=== PATIENT | male | born 1950 | race Native Hawaiian/Other Pacific Islander ===

== ENCOUNTER 2022-12-03 08:50 | Inpatient (IN) ==
[2022-12-03] MEDS ORDERED: CEFEPIME 2,000 MG/20 ML VIAL IV STA (09:15)
[2022-12-03] MEDS ORDERED: SODIUM CHLORIDE 0.9% 1000ML 1,000 ML IV SCH ×2 (09:15→15:17)
--- NOTE | 2022-12-03 09:43 | Emergency Department Note ---
Impression & Plan SOB (shortness of breath), Pneumonia, Abnormal chest CT, Precordial chest pain, Failure of outpatient treatment ED Provider Note NAME: BALA [id number] LEISA AGE: 72 SEX: M : 1950 ARRIVES VIA: Walk-In INFORMANT: [Patient] ED PROVIDER(S): [Hugo Guthrie MD] CHIEF COMPLAINT: Illness HISTORY OF PRESENT ILLNESS: The patient is a 72-year-old male who presents to the ED with some cough and lung issues for about 3 weeks. He is currently an [facility]. The patient states that his lungs hurt, he has been coughing. He feels short of breath. The patient had an x-ray performed outpatient on the of last month. This showed pneumonia. It appears he has been on Augmentin and Zithromax. A repeat chest film was done yesterday showing worsening of the pneumonia, he was sent today for evaluation. PMHx/PSHx: See Below SOCIAL HISTORY: See Below. PHYSICAL EXAM: GENERAL: Patient is in no acute distress. HEENT: No acute trauma, normocephalic atraumatic, mucous membranes moist, no nasal congestion. NECK: No stridor, no adenopathy, no meningismus, trachea is midline. LUNGS: Increased respiratory rate, breath sounds diminished bilaterally with some scattered crackles. No obvious respiratory distress. HEART: Without murmurs gallops or rubs, regular rate and rhythm. Distant heart tones. ABDOMEN: Soft, nontender, bowel sounds positive, no peritonitis. EXTREMITIES: No cyanosis or edema, full range of motion of all the joints without pain or difficulty, no signs for acute trauma. NEUROLOGIC: Oriented x 3, no acute motor or sensory deficits, no focal weakness. SKIN: No rash, no jaundice, no diaphoresis. DIFFERENTIAL DIAGNOSIS: Bacteremia or sepsis, pneumonia, CHF, failed outpatient management, anemia, electrolyte imbalance, dehydration, PE, among others. EMERGENCY DEPARTMENT COURSE/PROCEDURES: Prior/Outside records reviewed: Halfway documentation. ECG per my interpretation: Indication was shortness of breath. The ECG shows a sinus rhythm with PACs. The rate is 85. There is no ST elevation, no PVCs. The QTc is 454. Continuous Cardiac Monitoring per my interpretation: An order was placed for continuous cardiac monitoring. The monitor shows a rate of 88 with sinus rhythm with PACs. Critical Care Note: I have personally spent 51 minutes of critical care time in the direct management of this patient. This includes bedside care, interpretation of diagnostic studies, and testing, discussion with consultants, patient, and family members, and other required patient management activities. This 51 minutes is in excess of all separately billable procedures. MEDICAL DECISION MAKING: There is no leukocytosis. The patient is somewhat anemic with a hemoglobin of 11.1. There are no available values to use for comparison. Platelet count was normal. No renal failure or significant electrolyte abnormality. Lactic acid level was somewhat elevated. This elevation could be consistent with infection or possibly dehydration. No concerning liver enzyme elevation. Procalcitonin level was not not elevated. ECG shows a sinus rhythm with PACs, no ischemia. Cardiac enzyme testing x1 is not consistent with acute cardiac injury. Respiratory bio fire was completely negative. Chest film per my review suggested a right-sided pneumonia. No pneumothorax per my review. Chest CT shows potential pneumonia as well as potential malignancy. Some suspected hepatic metastases were seen. There was no PE. On exam, the patient's breath sounds were diminished. He was not toxic or febrile. The patient was given a DuoNeb. He was given 1.5 L of IV saline. He received IV cefepime as empiric antibiotic coverage. Patient certainly may have a pneumonia that has not resolved with outpatient treatment. He also appears to have a potential lung malignancy. Given his findings, given his recent course, I do think a hospital stay is warranted. Further work-up and care is indicated. I spoke with the patient, I spoke with case management, the on-call hospitalist was consulted. DISPOSITION: The patient's presentation and findings warrant a hospital stay. Past Med/Surg History Medical History Asthma Depression with anxiety History of alcohol abuse History of drug use History of tobacco abuse HLD (hyperlipidemia) HTN (hypertension) Surgical History (Updated 12/03/22 @ 13:51 by Yvonne Ogden PA-C) Hx of cardiac cath pt states no stents were placed Family History (Updated 12/03/22 @ 13:52 by Yvonne Ogden PA-C) Other Unknown family medical history Social History Smoking Status: Former smoker Cigarettes Per Day: 20 pack yr hx; Hx Alcohol Use: Yes (2 -40z a day) Alcohol type: beer Hx Substance Use: Yes Non-Prescribed Medications: Crack / Cocaine and Marijuana Feels Safe at Home: Yes Allergies Allergies Allergy/AdvReac Type Severity Reaction Status Date / Time No Known Allergies Allergy Unverified 12/03/22 11:58 Home Meds Home Medications Medication Instructions Recorded Confirmed albuterol sulfate 90 mcg/actuation 2 puff inhalation QID PRN 12/03/22 12/03/22 aerosol inhaler Shortness Of Breath aspirin 81 mg chewable tablet 81 mg PO DAILY 12/03/22 12/03/22 (Children's Aspirin) atorvastatin 40 mg tablet 40 mg PO DAILY 12/03/22 12/03/22 ciclesonide 80 mcg/actuation 1 puff inhalation BID 12/03/22 12/03/22 aerosol inhaler (Alvesco) lisinopril 20 mg tablet 20 mg PO DAILY 12/03/22 12/03/22 mirtazapine 45 mg tablet 45 mg PO HS 12/03/22 12/03/22 montelukast 10 mg tablet 10 mg PO DAILY 12/03/22 12/03/22 omeprazole 20 mg tablet,delayed 20 mg PO DAILY 12/03/22 12/03/22 release quetiapine 100 mg tablet 100 mg PO HS 12/03/22 12/03/22 Results & Data (ED) Vital Signs Vital Signs - 24 hr 12/03/22 09:01 12/03/22 09:04 12/03/22 09:15 Pulse Rate Pulse Rate [Apical] 81 Pulse Rhythm [Apical] Pulse Strength [Apical] Respiratory Rate 18 Respiratory Effort / Characteristics Respiratory Depth Respiratory Pattern Blood Pressure 105/69 Blood Pressure [Right Arm] 103/69 Blood Pressure Mean 81 Blood Pressure Mean [Right Arm] 80 Blood Pressure Position Sitting Blood Pressure Position [Right Arm] Sitting Pulse Oximetry 94 94 Oxygen Delivery Method Room Air Room Air Sepsis Recent Fever Within 48 Hours Yes Sepsis New/Unexplained Change in Mental Status N/A Sepsis Action Taken by Nursing No Action Required 12/03/22 11:04 12/03/22 13:12 12/03/22 13:52 Pulse Rate 117 H Pulse Rate [Apical] 84 Pulse Rhythm [Apical] Regular Pulse Strength [Apical] Normal Respiratory Rate 18 Respiratory Effort / Characteristics Non-Labored Spontaneous Respiratory Depth Normal Respiratory Pattern Regular Blood Pressure Blood Pressure [Right Arm] 94/72 L 85/65 L Blood Pressure Mean Blood Pressure Mean [Right Arm] 79 71 Blood Pressure Position Blood Pressure Position [Right Arm] Lying Pulse Oximetry 93 Oxygen Delivery Method Room Air Sepsis Recent Fever Within 48 Hours Sepsis New/Unexplained Change in Mental Status Sepsis Action Taken by Nursing 12/03/22 14:04 12/03/22 14:07 Pulse Rate 93 H Pulse Rate [Apical] Pulse Rhythm [Apical] Pulse Strength [Apical] Respiratory Rate Respiratory Effort / Characteristics Respiratory Depth Respiratory Pattern Blood Pressure Blood Pressure [Right Arm] 90/67 L Blood Pressure Mean Blood Pressure Mean [Right Arm] 74 Blood Pressure Position Blood Pressure Position [Right Arm] Lying Pulse Oximetry Oxygen Delivery Method Sepsis Recent Fever Within 48 Hours Sepsis New/Unexplained Change in Mental Status Sepsis Action Taken by Long-Term Medications Current Medication List: was personally reviewed by me Laboratory Data Attestation: I reviewed the patient's lab results. 12/03/22 09:36 12/03/22 09:36 Lab Results 12/03/22 12/03/22 12/03/22 Range/Units 09:36 09:36 09:36 WBC 7.42 (4.8-10.8) K/ul RBC 4.07 L (4.70-6.10) M/uL Hgb 11.1 L (14.0-18.0) g/dl Hct 33.8 L (42.0-52.0) % MCV 83.0 (80.0-100.0) fL MCH 27.3 (25.0-34.0) pg MCHC 32.8 (32.0-36.0) g/dL RDW Std Deviation 41.1 (36.4-46.3) fL RDW Coeff of Abby 13.6 (11.5-14.5) % Plt Count 393 (130-400) K/uL MPV 9.0 L (9.4-12.4) fL Immature Gran % (Auto) 0.3 % Neut % (Auto) 47.8 % Lymph % (Auto) 27.6 % [place] % (Auto) 10.5 % Eos % (Auto) 12.3 % Baso % (Auto) 1.5 % Neut # (Auto) 3.55 (1.40-6.50) K/uL Lymph # (Auto) 2.05 (1.2-3.4) K/uL [place] # (Auto) 0.78 H (0.11-0.59) K/uL Eos # (Auto) 0.91 H (0-0.50) K/uL Baso # (Auto) 0.11 (0-0.2) K/uL Immature Gran # (Auto) 0.02 (0.01-0.20) K/uL Sodium 135 L (136-145) mmol/L Potassium 3.7 (3.5-5.1) mmol/L Chloride 107 (98-107) mmol/L Carbon Dioxide 20 L (21-32) mmol/L Anion Gap 8 (3-11) BUN 17 (6-23) mg/dl Creatinine 1.04 (0.6-1.4) mg/dl Est Cr Clr Drug Dosing 66.1 ml/min Est GFR ( Amer) 82.7 ml/min Est GFR (Non-Af Amer) 71.4 ml/min BUN/Creatinine Ratio 16.3 (10-20) Glucose 95 (70-99(Fasting)) mg/dl Lactate (0.4-2.0) mmol/L Calcium 9.1 (8.6-10.3) mg/dl Magnesium 1.8 (1.7-2.4) mg/dl Total Bilirubin 0.5 (0.2-1.0) mg/dl Direct Bilirubin 0.1 (0-0.2) mg/dl AST 28 (13-39) U/L ALT 12 (7-52) U/L Alkaline Phosphatase 69 (34-104) U/L Troponin I High Sens 7.3 (0-20) pg/ml Total Protein 7.3 (6.0-8.3) gm/dl Albumin 3.6 (3.4-5.0) gm/dl Procalcitonin 0.17 (0-0.5) ng/ml Adenovirus (PCR) (NotDetected) B. pertussis DNA (PCR) (NotDetected) B.parapertussis DNA PCR (NotDetected) C. pneumoniae DNA (PCR) (NotDetected) Coronavirus OC43 (PCR) (NotDetected) Coronavirus HKU1 (PCR) (NotDetected) Coronavirus 229E (PCR) (NotDetected) SARS-CoV-2 (PCR) (NotDetected) Coronavirus NL63 (PCR) (NotDetected) Human Metapneumovir PCR (NotDetected) Influenza Type A (PCR) (NotDetected) Influenza Type B (PCR) (NotDetected) M. pneumoniae (PCR) (NotDetected) Parainfluenza 1 (PCR) (NotDetected) Parainfluenza 2 (PCR) (NotDetected) Parainfluenza 3 (PCR) (NotDetected) Parainfluenza 4 (PCR) (NotDetected) RSV (PCR) (NotDetected) Entero/Rhino (PCR) (NotDetected) 12/03/22 12/03/22 12/03/22 Range/Units 09:48 11:15 12:10 WBC (4.8-10.8) K/ul RBC (4.70-6.10) M/uL Hgb (14.0-18.0) g/dl Hct (42.0-52.0) % MCV (80.0-100.0) fL MCH (25.0-34.0) pg MCHC (32.0-36.0) g/dL RDW Std Deviation (36.4-46.3) fL RDW Coeff of Abby (11.5-14.5) % Plt Count (130-400) K/uL MPV (9.4-12.4) fL Immature Gran % (Auto) % Neut % (Auto) % Lymph % (Auto) % [place] % (Auto) % Eos % (Auto) % Baso % (Auto) % Neut # (Auto) (1.40-6.50) K/uL Lymph # (Auto) (1.2-3.4) K/uL [place] # (Auto) (0.11-0.59) K/uL Eos # (Auto) (0-0.50) K/uL Baso # (Auto) (0-0.2) K/uL Immature Gran # (Auto) (0.01-0.20) K/uL Sodium (136-145) mmol/L Potassium (3.5-5.1) mmol/L Chloride (98-107) mmol/L Carbon Dioxide (21-32) mmol/L Anion Gap (3-11) BUN (6-23) mg/dl Creatinine (0.6-1.4) mg/dl Est Cr Clr Drug Dosing ml/min Est GFR ( Amer) ml/min Est GFR (Non-Af Amer) ml/min BUN/Creatinine Ratio (10-20) Glucose (70-99(Fasting)) mg/dl Lactate 2.5 H* 2.0 (0.4-2.0) mmol/L Calcium (8.6-10.3) mg/dl Magnesium (1.7-2.4) mg/dl Total Bilirubin (0.2-1.0) mg/dl Direct Bilirubin (0-0.2) mg/dl AST (13-39) U/L ALT (7-52) U/L Alkaline Phosphatase (34-104) U/L Troponin I High Sens (0-20) pg/ml Total Protein (6.0-8.3) gm/dl Albumin (3.4-5.0) gm/dl Procalcitonin (0-0.5) ng/ml Adenovirus (PCR) Not Detected (NotDetected) B. pertussis DNA (PCR) Not Detected (NotDetected) B.parapertussis DNA PCR Not Detected (NotDetected) C. pneumoniae DNA (PCR) Not Detected (NotDetected) Coronavirus OC43 (PCR) Not Detected (NotDetected) Coronavirus HKU1 (PCR) Not Detected (NotDetected) Coronavirus 229E (PCR) Not Detected (NotDetected) SARS-CoV-2 (PCR) Not Detected (NotDetected) Coronavirus NL63 (PCR) Not Detected (NotDetected) Human Metapneumovir PCR Not Detected (NotDetected) Influenza Type A (PCR) Not Detected (NotDetected) Influenza Type B (PCR) Not Detected (NotDetected) M. pneumoniae (PCR) Not Detected (NotDetected) Parainfluenza 1 (PCR) Not Detected (NotDetected) Parainfluenza 2 (PCR) Not Detected (NotDetected) Parainfluenza 3 (PCR) Not Detected (NotDetected) Parainfluenza 4 (PCR) Not Detected (NotDetected) RSV (PCR) Not Detected (NotDetected) Entero/Rhino (PCR) Not Detected (NotDetected) Administered Medications Discontinued Medications Albuterol (Albut/Ipratrop 3mg/0.5mg Neb 3 Ml Vial) 3 ml NEB NOW STA; Protocol Stop: 12/03/22 10:46 Last Admin: 12/03/22 11:13 Dose: 3 ml Documented By: PALMA Cefepime HCl (Maxipime) 2,000 mg in 20 mls @ 5 mls/min IV NOW STA; Protocol Stop: 12/03/22 09:18 Last Admin: 12/03/22 10:09 Dose: 5 mls/min Documented By: ANGEL Sodium Chloride (Nss 1000ml) 1,000 mls @ 999 mls/hr IV .Q1H1M KAITLIN Stop: 12/03/22 10:15 Last Infusion: 12/03/22 10:54 Dose: 0 mls/hr Documented By: Admin: 12/03/22 09:39 Dose: 999 mls/hr Documented By: ANGEL Sodium Chloride (Nss 1000ml) 500 mls @ 999 mls/hr IV .Q31M ONE Stop: 12/03/22 13:27 Last Infusion: 12/03/22 13:52 Dose: 0 mls/hr Documented By: Admin: 12/03/22 13:05 Dose: 999 mls/hr Documented By: PALMA Ioversol (Optiray 320 500ml) 111 ml IV ONCE ONE Stop: 12/03/22 10:43 Last Admin: 12/03/22 10:42 Dose: 111 ml Documented By: CARTER Imaging Data Radiologist's Impression: Chest X-Ray 12/03/22 09:15 XR chest 1V portable CLINICAL HISTORY: Sepsis. COMPARISON STUDY: No previous studies for comparison. FINDINGS: There is no pneumothorax or pleural effusion. Right lower lung airspace opacity is present. There is mild diffuse interstitial thickening. Cardiac size is normal. Mediastinal contours are unremarkable. IMPRESSION: 1. Right lower lung airspace opacity. Given the clinical history, this likely reflects pneumonia. However, post treatment radiographs to ensure resolution are recommended to exclude the possibility of an underlying neoplasm. 2. Nonspecific diffuse reticulonodular interstitial thickening. ACT 112: Negative or not required by law. Electronically signed by: Romeo Mortensen M.D. 12/03/2022 10:48 AM Chest CTA 12/03/22 09:43 CT ANGIOGRAPHY OF THE CHEST, PULMONARY EMBOLUS PROTOCOL CLINICAL HISTORY: Fever. COMPARISON STUDY: Chest radiograph performed earlier today. TECHNIQUE: Following IV administration of 111 mL of Optiray, helical axial images of the chest were obtained utilizing the pulmonary embolus protocol. Maximal intensity projections and sagittal and coronal reformats were viewed on an independent 3D workstation. IV contrast was administered without complication. Automated exposure control was utilized for the study. A dose lowering technique was utilized adhering to the principles of ALARA. CT DOSE: 386.04 mGy.cm FINDINGS: No pulmonary emboli are identified. There is no thoracic aortic dissection. There is a small pericardial effusion. No pneumothorax is present. There is a trace right pleural effusion. Note is made of numerous pathologically enlarged thoracic and upper abdominal lymph nodes. There are several prominent right supraclavicular lymph nodes. Index right paratracheal lymph node on image 212 of 283 measures 3.6 x 3.1 cm. Index prevascular node on image 187 measures 4 x 2 cm. Subcarinal lymph node on image 145 measures 4.1 x 3.5 cm. Gastrohepatic ligament lymph node measures 3.7 x 3.2 cm. Emphysema is noted. Several nodular airspace opacities within the right lower lobe measure up to 3.9 x 2.4 cm. There is a nodule within the medial basal segment of the right lower lobe on image 79 measures 2.2 x 1.6 cm. There are innumerable smaller nodules throughout the lungs. Nodular interlobular septal thickening is noted at this is most pron ounced within the right lower lobe. There is thickening of the bronchovascular bundles. Bronchial wall thickening is noted. No suspicious lesions within the bony thorax are noted. There are numerous hypodense hepatic lesions. These measure up to approximately 2.9 cm. IMPRESSION: 1. No pulmonary emboli identified. 2. Several nodular airspace opacities within the right lower lobe with innumerable smaller nodules throughout the lungs as well as extensive thoracic and upper abdominal lymphadenopathy. The findings represent a neoplastic process and favor primary lung malignancy such as small cell carcinoma. The right lower lobe airspace opacities are likely neoplastic although a superimposed pneumonia could appear similar. 3. Interlobular septal thickening within the lungs, most pronounced within the right lower lobe. This suggests lymphangitic carcinomatosis. 4. Numerous hepatic metastases. 5. Small pericardial effusion. Trace right pleural effusion. ACT 112: Positive. There are findings on this exam that require communication between the performing entity and the patient following Patient Test Result Information Act ([place] Act 112) guidelines. Electronically signed by: Romeo Mortensen M.D. 12/03/2022 11:17 AM Discharge Plan Visit Data Chief Complaint: Illness Stated Complaint: ILLNESS, COUGH, CHEST PAINS ED Provider: Hugo Guthrie Discharge Problem: SOB (shortness of breath), Pneumonia, Abnormal chest CT, Precordial chest pain, Failure of outpatient treatment Patient Disposition: Admitted As Inpatient Condition: Fair Forms Stand Alone Forms: My [facility] Prescriptions Prescriptions: No Action atorvastatin 40 mg Tablet 40 mg PO DAILY lisinopril 20 mg Tablet 20 mg PO DAILY quetiapine 100 mg Tablet 100 mg PO HS mirtazapine 45 mg Tablet 45 mg PO HS aspirin [Children's Aspirin] 81 mg Tablet,Chewable 81 mg PO DAILY montelukast 10 mg Tablet 10 mg PO DAILY albuterol sulfate 90 mcg/actuation Hfa Aerosol Inhaler 2 puff INHALATION QID PRN (Reason: Shortness Of Breath) omeprazole 20 mg Tablet,Delayed Release (Dr/Ec) 20 mg PO DAILY Alvesco 80 mcg/actuation Hfa Aerosol Inhaler 1 puff INHALATION BID Rx Instructions: Rinse mouth after use Referrals Referrals: PCP,NO [Physician] -
[2022-12-03 10:02] LABS: Basophils # (auto) 0.11 K/uL (0-0.2); Basophils % (auto) 1.5 %; Eosinophils # (auto) 0.91 K/uL (0-0.50); Eosinophils % (auto) 12.3 %; Hematocrit (blood only) 33.8 % (42.0-52.0); Hemoglobin 11.1 g/dl (14.0-18.0); Immature Granulocytes # (auto) 0.02 K/uL (0.01-0.20); Immature Granulocytes % (auto) 0.3 %; Lymphocytes # (auto) 2.05 K/uL (1.2-3.4); Lymphocytes % (auto) 27.6 %; Mean Corpuscular Hemoglobin 27.3 pg (25.0-34.0); Mean Corpuscular Hgb Conc 32.8 g/dL (32.0-36.0); Monocytes # (auto) 0.78 K/uL (0.11-0.59); Monocytes % (auto) 10.5 %; Neutrophils # (auto) 3.55 K/uL (1.40-6.50); Neutrophils % (auto) 47.8 %; Platelet Count 393 K/uL (130-400); RDW Coefficient of Variation 13.6 % (11.5-14.5); RDW Standard Deviation 41.1 fL (36.4-46.3); Red Blood Count 4.07 M/uL (4.70-6.10); White Blood Count 7.42 K/ul (4.8-10.8)
[2022-12-03 10:19] LABS: Albumin Level 3.6 gm/dl (3.4-5.0); BUN Creatinine Ratio 16.3 (10-20); Bilirubin Direct 0.1 mg/dl (0-0.2); Bilirubin,Total 0.5 mg/dl (0.2-1.0); Calcium 9.1 mg/dl (8.6-10.3); Creatinine Clr Calc Pharmacy 66.1 ml/min; Est GFR (African American) 82.7 ml/min; Est GFR (Non-African American) 71.4 ml/min; Magnesium 1.8 mg/dl (1.7-2.4); Potassium 3.7 mmol/L (3.5-5.1); Total Protein 7.3 gm/dl (6.0-8.3)
[2022-12-03 10:26] LABS: Troponin I High Sensitivity 7.3 pg/ml (0-20)
[2022-12-03] MEDS ORDERED: OPTIRAY 320 500ml IV ONE (10:42)
[2022-12-03] MEDS ORDERED: ALBUT/IPRATROP 3MG/0.5MG NEB 3 ML VIAL NEB STA (10:45)
--- NOTE | 2022-12-03 10:49 | XRay Report ---
XR chest 1V portable CLINICAL HISTORY: Sepsis. COMPARISON STUDY: No previous studies for comparison. FINDINGS: There is no pneumothorax or pleural effusion. Right lower lung airspace opacity is present. There is mild diffuse interstitial thickening. Cardiac size is normal. Mediastinal contours are unre markable. IMPRESSION: 1. Right lower lung airspace opacity. Given the clinical history, this likely reflects pneumonia. Ho wever, post treatment radiographs to ensure resolution are recommended to exclude the possibility of an underlying neoplasm. 2. Nonspecific diffuse reticulonodular interstitial thickening. ACT 112: Negative or not required by law. Electronically signed by: Romeo Mortensen M.D. 12/03/2022 10:48 AM
--- NOTE | 2022-12-03 11:19 | CT Scan Report ---
CT ANGIOGRAPHY OF THE CHEST, PULMONARY EMBOLUS PROTOCOL CLINICAL HISTORY: Fever. COMPARISON STUDY: Chest radiograph performed earlier today. TECHNIQUE: Following IV administration of 111 mL of Optiray, helical axial images of the chest were o btained utilizing the pulmonary embolus protocol. Maximal intensity projections and sagittal and cor onal reformats were viewed on an independent 3D workstation. IV contrast was administered without co mplication. Automated exposure control was utilized for the study. A dose lowering technique was ut ilized adhering to the principles of ALARA. CT DOSE: 386.04 mGy.cm FINDINGS: No pulmonary emboli are identified. There is no thoracic aortic dissection. There is a sma ll pericardial effusion. No pneumothorax is present. There is a trace right pleural effusion. Note is made of numerous pathologically enlarged thoracic and upper abdominal lymph nodes. There are several prominent right supraclavicular lymph nodes. Index right paratracheal lymph node on image 212 of 283 measures 3.6 x 3.1 cm. Index prevascular node on image 187 measures 4 x 2 cm. Subcarinal lymph node on image 145 measures 4.1 x 3.5 cm. Gastrohepatic ligament lymph node measures 3.7 x 3.2 cm. Emphysem a is noted. Several nodular airspace opacities within the right lower lobe measure up to 3.9 x 2.4 cm . There is a nodule within the medial basal segment of the right lower lobe on image 79 measures 2.2 x 1.6 cm. There are innumerable smaller nodules throughout the lungs. Nodular interlobular septal thi ckening is noted at this is most pronounced within the right lower lobe. There is thickening of the b ronchovascular bundles. Bronchial wall thickening is noted. No suspicious lesions within the bony tho rax are noted. There are numerous hypodense hepatic lesions. These measure up to approximately 2.9 cm . IMPRESSION: 1. No pulmonary emboli identified. 2. Several nodular airspace opacities within the right lower lobe with innumerable smaller nodules th roughout the lungs as well as extensive thoracic and upper abdominal lymphadenopathy. The findings re present a neoplastic process and favor primary lung malignancy such as small cell carcinoma. The righ t lower lobe airspace opacities are likely neoplastic although a superimposed pneumonia could appear similar. 3. Interlobular septal thickening within the lungs, most pronounced within the right lower lobe. This suggests lymphangitic carcinomatosis. 4. Numerous hepatic metastases. 5. Small pericardial effusion. Trace right pleural effusion. ACT 112: Positive. There are findings on this exam that require communication between the performing entity and the patient following Patient Test Result Information Act ([place] Act 112) guidelines. Electronically signed by: Romeo Mortensen M.D. 12/03/2022 11:17 AM
[2022-12-03 12:24] LABS: Adenovirus PCR Not Detected (NotDetected); Bordetella parapertussis PCR Not Detected (NotDetected); Bordetella pertussis PCR Not Detected (NotDetected); Chlamydia pneumoniae PCR Not Detected (NotDetected); Coronavirus 229E PCR Not Detected (NotDetected); Coronavirus CoV-2 (COVID19)PCR Not Detected (NotDetected); Coronavirus HKU1 PCR Not Detected (NotDetected); Coronavirus NL63 PCR Not Detected (NotDetected); Coronavirus OC43PCR Not Detected (NotDetected); Human Metapneumovirus PCR Not Detected (NotDetected); Influenza A PCR Not Detected (NotDetected); Influenza B PCR Not Detected (NotDetected); Mycoplasma pneumoniae PCR Not Detected (NotDetected); Parainfluenza Virus 1 PCR Not Detected (NotDetected); Parainfluenza Virus 2 PCR Not Detected (NotDetected); Parainfluenza Virus 3 PCR Not Detected (NotDetected); Parainfluenza Virus 4 PCR Not Detected (NotDetected); Respiratory Syncytial VirusPCR Not Detected (NotDetected); Rhinovirus/Enterovirus PCR Not Detected (NotDetected)
--- NOTE | 2022-12-03 12:47 | History & Physical Report ---
Date of Service December 03, 2022 Assessment & Plan (1) Abnormal chest CT: (2) Pneumonia: (3) Hypotension: Plan This is a 72-year-old male who has a significant past medical history of HTN, HLD, depression with anxiety, asthma, history of 75-puoe-embo tobacco abuse, history of alcohol abuse and history of drug use who presents from [facility] secondary to cough x3 weeks. CT Chest: IMPRESSION:1. No pulmonary emboli identified.2. Several nodular airspace opacities within the right lower lobe with innumerable smaller nodules throughout the lungs as well as extensive thoracic and upper abdominal lymphadenopathy. The findings represent a neoplastic process and favor primary lung malignancy such as small cell carcinoma. The right lower lobe airspace opacities are likely neoplastic although a superimposed pneumonia could appear similar.3. Interlobular septal thickening within the lungs, most pronounced within the right lower lobe. This suggests lymphangitic carcinomatosis.. Numerous hepatic metastases.. Small pericardial effusion. Trace right pleural effusion. Abnormal Chest CT Pneumonia Possible Lung cancer with mets Failure of outpatient treatment Admit to PCU consult pulmonology, NPO after midnight for EBUS tomorrow Empirically tx with IV zosyn for now, MRSA swab, if positive will add vanco, recently completed 5 day course of azithro/aug as outpatient Duoneb, incentive spirometry obtain Liver US to determine if lesions amenable to biopsy via IR likely will need to consult onc at some point Hypotension ? Sepsis vs hypovolemia - hypotension, lactic acidosis, tachycardia if sepsis source likely PNA blood cultures pending, urine negative Received total of 2L of IVF in ED will continue maintenance for now @ 80cc/hr - vitals improving Precordial Chest pain initial trop negative, ecg w/o st changes will cycle for completeness, obtain echo likely MSk from cough, reproducible Wandering Atrial Pacemaker pt with evidence of what appeared to be afib on tele @ 1310, RVR with hypotension now back in sinus rhythm possibly due to underlying pulmonary issue vs sepsis Discussed with cards to review tele who felt wandering atrial pacemaker, not afib will replete mag and K to keep > 2 and 4.0 respectively HTN hold lisinopril due to hypotension HLD continue statin Asthma, no acute exac duonebs hold home inhaler Hx of tobacco abuse Hx of alcohol abuse Hx of Drug use with cocaine and marijuana Pt confirms he is a DNR/DNI but does state at this point he would wish to pursue treatment of cancer depending on prognosis. Discussed with CM who agreed Prisoners have right to Medical decision making Dispo: admit to PCU PCP: Fidelina LIU A total of 95 was spent coordinating, documenting, and providing care for this patient excluding time spent in the performance of separately billed services. This included personally viewing all current laboratories and imaging studies, medication reconciliation, outpatient chart review, and discussion with specialists. Pt seen and collaborated with Dr. Rutherford History of Present Illness Chief Complaint: Cough x 3 weeks. Primary Care Provider: ALEXA Fidelina This is a 72-year-old male who has a significant past medical history of HTN, HLD, depression with anxiety, asthma, history of 55-kgmj-pmkg tobacco abuse, history of alcohol abuse and history of drug use who presents from [facility] secondary to cough x3 weeks. Patient complains of a dry cough that has been present for the past 3 weeks. He further complains of shortness of breath at rest, with exertion, left-sided chest pain with cough, nausea, fatigue, decreased weight loss, presumed decreased appetite, lightheadedness and dizziness. He states symptoms have been worsening for the last 3 weeks. He was recently treated with course of Augmentin and azithromycin at the present. He noted no improvement with this. He denies any known fever, chills, sweats, night sweats, hemoptysis, vomiting, hematemesis, diarrhea, abdominal pain, change in bowel or urinary habits. He denies any history of any significant heart disease. He states he did have cardiac cath before. He denies any surgical history. He is unaware of his family history. Allergies Allergy/AdvReac Type Severity Reaction Status Date / Time No Known Allergies Allergy Unverified 12/03/22 11:58 Home Medications Medication Instructions Recorded Confirmed Type albuterol sulfate 90 mcg/actuation 2 puff inhalation QID PRN 12/03/22 12/03/22 History aerosol inhaler Shortness Of Breath aspirin 81 mg chewable tablet 81 mg PO DAILY 12/03/22 12/03/22 History (Children's Aspirin) atorvastatin 40 mg tablet 40 mg PO DAILY 12/03/22 12/03/22 History ciclesonide 80 mcg/actuation 1 puff inhalation BID 12/03/22 12/03/22 History aerosol inhaler (Alvesco) lisinopril 20 mg tablet 20 mg PO DAILY 12/03/22 12/03/22 History mirtazapine 45 mg tablet 45 mg PO HS 12/03/22 12/03/22 History montelukast 10 mg tablet 10 mg PO DAILY 12/03/22 12/03/22 History omeprazole 20 mg tablet,delayed 20 mg PO DAILY 12/03/22 12/03/22 History release quetiapine 100 mg tablet 100 mg PO HS 12/03/22 12/03/22 History Past Med/Surg History Medical History Asthma Depression with anxiety History of alcohol abuse History of drug use History of tobacco abuse HLD (hyperlipidemia) HTN (hypertension) Surgical History (Updated 12/03/22 @ 13:51 by Yvonne Ogden PA-C) Hx of cardiac cath pt states no stents were placed Family History (Updated 12/03/22 @ 13:52 by Yvonne Ogden PA-C) Other Unknown family medical history Social History Smoking Status: Former smoker Cigarettes Per Day: 20 pack yr hx; Hx Alcohol Use: Yes (2 -40z a day) Alcohol type: beer Hx Substance Use: Yes Non-Prescribed Medications: Crack / Cocaine and Marijuana Feels Safe at Home: Yes Review of Systems Review of Systems: All systems reviewed & are unremarkable except as noted in HPI & below Physical Exam Physical Exam: Constitutional: WD/WN, male, appears acutely ill, vitals as above, NAD, sitting up in bed, pleasant, conversing easily and answers questions appropriately Head: Normocephalic, Atraumatic Eyes: PERRL, conjunctivae normal, anicteric sclerae ENMT: external ear and nose normal, oropharynx normal Neck: trachea midline, no thyromegaly normal visual inspection Respiratory: normal respiratory effort, lungs clear to auscultation with right-sided lower expiratory wheeze and rhonchi, no Rales. Normal insp/exp effort, no accessory muscle use Cardiovascular: Irregular rhythm, tachy rate, no murmur, no edema Vessels: no JVD or carotid bruit Chest: normal inspection of chest Abdomen: normal bowel sounds, soft, nontender, no hepatosplenomegaly Musculoskeletal: no cyanosis or clubbing, AROM x 4 Skin: no rashes, warm and dry normal turgor Neurologic: PERRL, EOMI, accommodation nl, no face palsy, no dysarthria CN's II-XI intact bilaterally and moves all extremities Psychiatric: A+Ox3, euthymic affect Lymphatic: no cervical or axillary lymphadenopathy : deferred Results & Data Results & Data Vital Signs (Past 12 Hours) Vital Signs Pulse Resp BP BP Pulse Ox O2 Del Method 12/03/22 11:04 84 18 94/72 L 93 Room Air 12/03/22 09:15 94 Room Air 12/03/22 09:04 81 18 103/69 94 Room Air 12/03/22 09:01 105/69 Medications Administered Medication List Discontinued Medications Albuterol (Albut/Ipratrop 3mg/0.5mg Neb 3 Ml Vial) 3 ml NEB NOW STA; Protocol Stop: 12/03/22 10:46 Last Admin: 12/03/22 11:13 Dose: 3 ml Documented By: PALMA Cefepime HCl (Maxipime) 2,000 mg in 20 mls @ 5 mls/min IV NOW STA; Protocol Stop: 12/03/22 09:18 Last Admin: 12/03/22 10:09 Dose: 5 mls/min Documented By: ANGEL Sodium Chloride (Nss 1000ml) 1,000 mls @ 999 mls/hr IV .Q1H1M KAITLIN Stop: 12/03/22 10:15 Last Infusion: 12/03/22 10:54 Dose: 0 mls/hr Documented By: Admin: 12/03/22 09:39 Dose: 999 mls/hr Documented By: ANGEL Ioversol (Optiray 320 500ml) 111 ml IV ONCE ONE Stop: 12/03/22 10:43 Last Admin: 12/03/22 10:42 Dose: 111 ml Documented By: CARTER ECG Rate (beats per minute): 77 Rhythm: normal sinus Additional Comments: qtc 425ms COVID-19 Results Results COVID-19 Adm Lab Results: RBC 4.07 M/uL (4.70-6.10) L 12/03/22 WBC 7.42 K/ul (4.8-10.8) 12/03/22 Hgb 11.1 g/dl (14.0-18.0) L 12/03/22 Hct 33.8 % (42.0-52.0) L 12/03/22 Plt Count 393 K/uL (130-400) 12/03/22 Neutrophils (%) (Auto) 47.8 % 12/03/22 Lymphocytes (%) (Auto) 27.6 % 12/03/22 Monocytes # (Auto) 0.78 K/uL (0.11-0.59) H 12/03/22 Eosinophils # (Auto) 0.91 K/uL (0-0.50) H 12/03/22 Immature Granulocyte % (Auto) 0.3 % 12/03/22 Neutrophils # (Auto) 3.55 K/uL (1.40-6.50) 12/03/22 Lymphocytes # (Auto) 2.05 K/uL (1.2-3.4) 12/03/22 Monocytes # (Auto) 0.78 K/uL (0.11-0.59) H 12/03/22 Eosinophils # (Auto) 0.91 K/uL (0-0.50) H 12/03/22 Basophils # (Auto) 0.11 K/uL (0-0.2) 12/03/22 Immature Granulocyte # (Auto) 0.02 K/uL (0.01-0.20) 3 Na 135 mmol/L (136-145) L 12/03/22 K 3.7 mmol/L (3.5-5.1) 12/03/22 Cl 107 mmol/L (98-107) 12/03/22 CO2 20 mmol/L (21-32) L 12/03/22 Anion Gap 8 (3-11) 12/03/22 BUN 17 mg/dl (6-23) 12/03/22 Creatinine 1.04 mg/dl (0.6-1.4) 12/03/22 BUN/Creatinine Ratio 16.3 (10-20) 12/03/22 Glucose Level 95 mg/dl (70-99(Fasting)) 12/03/22 Ca 9.1 mg/dl (8.6-10.3) 12/03/22 Total Bilirubin 0.5 mg/dl (0.2-1.0) 12/03/22 Direct Bilirubin 0.1 mg/dl (0-0.2) 12/03/22 AST/SGOT 28 U/L (13-39) 12/03/22 ALT/SGPT 12 U/L (7-52) 12/03/22 Alkaline Phosphatase 69 U/L (34-104) 12/03/22 Total Protein 7.3 gm/dl (6.0-8.3) 12/03/22 Albumin 3.6 gm/dl (3.4-5.0) 12/03/22 Procalcitonin 0.17 ng/ml (0-0.5) 12/03/22 Adenovirus (PCR) Not Detected (NotDetected) 12/03/22 B. parapertussis DNA (PCR) Not Detected (NotDetected) 11/22 B. pertussis DNA (PCR) Not Detected (NotDetected) 12/03/22 C. pneumoniae DNA (PCR) Not Detected (NotDetected) 3 Coronavirus Type OC43 (PCR) Not Detected (NotDetected) 11/22 Coronavirus Type HKU1 (PCR) Not Detected (NotDetected) 11/22 Coronavirus Type 229E (PCR) Not Detected (NotDetected) 11/22 COVID-19 PCR Not Detected (NotDetected) 12/03/22 Coronavirus Type NL63 (PCR) Not Detected (NotDetected) 11/22 Human Metapneumovirus (PCR) Not Detected (NotDetected) 11/22 Influenza Virus Type A (PCR) Not Detected (NotDetected) Influenza Virus Type B (PCR) Not Detected (NotDetected) M. pneumoniae (PCR) Not Detected (NotDetected) 12/03/22 Parainfluenza Type 1 (PCR) Not Detected (NotDetected) 11/22 Parainfluenza Type 2 (PCR) Not Detected (NotDetected) 11/22 Parainfluenza Type 3 (PCR) Not Detected (NotDetected) 11/22 Parainfluenza Type 4 (PCR) Not Detected (NotDetected) 11/22 RSV (PCR) Not Detected (NotDetected) 12/03/22 Enterovirus/Rhinovirus (PCR) Not Detected (NotDetected) Chest X-Ray 12/03/22 Code Status & VTE Plan Code Status DNR/DNI VTE Prophylaxis Plan VTE Prophylaxis will be ordered: Yes Supervising Physician Co-Signing Physician Notes Pt seen and examined by myself, Griselda Rutherford MD on the day of service. Care was coordinated with Yvonne Ogden PA-C. Please refer to her note for additional information. 72yo male, current prisoner with Hx of chronic tobacco use who presented with complaints of SOB and was admitted with what appears to be on imaging metastatic lung cancer. Pulmonology consult, due for EBUS in the AM, npo after midnight. IV Zosyn Fluids as needed for stable hypotension Telemonitoring of wandering atrial pacemaker, consider cardiology f/u Pt DNR/DNI in terms of code status per pt request and after Yvonne Ogden's discussion with Chloé Riley from Case Management. Otherwise as documented above.
[2022-12-03] MEDS ORDERED: SODIUM CHLORIDE 0.9% 1000ML 500 ML IV ONE (12:57)
--- NOTE | 2022-12-03 13:04 | Pulmonary Consultation ---
Date of Consultation December 03, 2022 Assessment & Plan (1) Abnormal chest CT: (2) LAD (lymphadenopathy), mediastinal: (3) Pneumonia: Laterality: right Lung location: unspecified part of lung Pneumonia type: due to unspecified organism Qualified Code(s): J18.9 - Pneumonia, unspecified organism (4) SOB (shortness of breath): (5) COPD (chronic obstructive pulmonary disease): (6) Peripheral eosinophilia: Plan CT chest 12/03/2022 personally reviewed: Centrilobular and paraseptal emphysema appreciated bilaterally Right lower lobe 2.2 x 1.6 cm nodularity close to the mediastinum/esophagus, another 3.9 x 2.4 cm right lower lobe posterior nodularity Significant mediastinal lymphadenopathy, especially station 7 -- Abnormal chest CT with mediastinal lymphadenopathy and pulmonary nodules Likely representing cancer Seems to be primary lung Respiratory bio fire negative for everything including COVID-19, influenza A/B Procalcitonin 0.17 Platelets 393 Patient will likely need MRI of the brain as well -- COPD with emphysema On Alvesco and montelukast We will put him on budesonide and Perforomist nebulized while in the hospital --Eosinophilia Absolute eosinophil count 910 Plan: Hold anticoagulation N.p.o. postmidnight Case was discussed with IR whether they will be able to do biopsy of the liver. It is deep in and they were not sure whether they will get a good tissue. Given the random cortisol the patient is low Patient also has pneumonia although start the patient on hydrocortisone. For EBUS tomorrow Risk and benefit of the procedure were explained to the patient in depth. He understands and agrees to go ahead with the procedure Patient will likely need MRI of the brain as well Please note the above document was generated using voice recognition software. It may contain grammatical, syntax or spelling errors.Any formal questions or concerns about the content, text or information contained within the body of this dictation should be directly addressed to the provider for clarification. History of Present Illness History of Present Illness 72-year-old male coming to the hospital because of cough and malaise Past medical history: Hypertension, dyslipidemia, depression, anxiety Pulmonary consulted for abnormal chest CT and mediastinal lymphadenopathy Present management in the room at the time of examination. Patient saturation was 91-92% on room air. He was actively coughing. Denies any hemoptysis He has failed multiple antibiotics at the present. Denies any fever Does complain of chest pain especially when he coughs. It is reproducible. No dysuria, no diarrhea Occasional headache but no blurry vision No nausea or vomiting. Social history: Approximately [id number] smoking history quit in the . History of alcohol as well as drug abuse quit long time ago No family history of lung cancer Allergies Allergy/AdvReac Type Severity Reaction Status Date / Time No Known Allergies Allergy Unverified 12/03/22 11:58 Home Medications Medication Instructions Recorded Confirmed Type albuterol sulfate 90 mcg/actuation 2 puff inhalation QID PRN 12/03/22 12/03/22 History aerosol inhaler Shortness Of Breath aspirin 81 mg chewable tablet 81 mg PO DAILY 12/03/22 12/03/22 History (Children's Aspirin) atorvastatin 40 mg tablet 40 mg PO DAILY 12/03/22 12/03/22 History ciclesonide 80 mcg/actuation 1 puff inhalation BID 12/03/22 12/03/22 History aerosol inhaler (Alvesco) lisinopril 20 mg tablet 20 mg PO DAILY 12/03/22 12/03/22 History mirtazapine 45 mg tablet 45 mg PO HS 12/03/22 12/03/22 History montelukast 10 mg tablet 10 mg PO DAILY 12/03/22 12/03/22 History omeprazole 20 mg tablet,delayed 20 mg PO DAILY 12/03/22 12/03/22 History release quetiapine 100 mg tablet 100 mg PO HS 12/03/22 12/03/22 History Patient History Medical History Asthma Depression with anxiety History of alcohol abuse History of drug use History of tobacco abuse HLD (hyperlipidemia) HTN (hypertension) Surgical History (Updated 12/03/22 @ 13:51 by Yvonne Ogden PA-C) Hx of cardiac cath pt states no stents were placed Family History (Updated 12/03/22 @ 13:52 by Yvonne Ogden PA-C) Other Unknown family medical history Social History Smoking Status: Former smoker Cigarettes Per Day: 20 pack yr hx; Hx Alcohol Use: Yes (2 -40z a day) Alcohol type: beer Hx Substance Use: Yes Non-Prescribed Medications: Crack / Cocaine and Marijuana Feels Safe at Home: Yes Review of Systems Review of Systems: All systems reviewed & are unremarkable except as noted in HPI & below Physical Exam Physical Exam: Constitutional: No acute distress HEENT: EOMI, PERRLA Respiratory system: Decreased air entry bilaterally, no wheeze, no rhonchi, positive crackles bilaterally CVS: S1-S2 positive, no murmurs or gallops Abdomen: Soft, nontender, nondistended, positive bowel sounds x4 Extremities: +2 pulses bilaterally radialis/ dorsalis pedis, no cyanosis, no edema Neuro: Awake alert oriented x3 Psych: Normal mood and affect G/U: No Brewer Skin: no rashes, warm and dry Lymphatic: no cervical or axillary lymphadenopathy Results & Data Results & Data Vital Signs (Past 12 Hours) Vital Signs Pulse Resp BP BP Pulse Ox O2 Del Method 12/03/22 11:04 84 18 94/72 L 93 Room Air 12/03/22 09:15 94 Room Air 12/03/22 09:04 81 18 103/69 94 Room Air 12/03/22 09:01 105/69 Laboratory Results 12/03/22 09:36 12/03/22 09:36 PG Care Time/CCT Total # of Minutes Spent Total Time Spent with Patient: Total time spent is greater than 50% in coordination of care (as documented) at patient's floor/unit and/or counseling patient: Coding Level of Care Code 38525 INT INP/OBS CARE 3/75MIN Diagnoses Abnormal chest CT R93.89 LAD (lymphadenopathy), mediastinal R59.0 Pneumonia J18.9 Laterality: right Lung location: unspecified part of lung Pneumonia type: due to unspecified organism SOB (shortness of breath) R06.02 COPD (chronic obstructive pulmonary disease) J44.9 Peripheral eosinophilia D72.19
[2022-12-03] MEDS: SODIUM CHLORIDE 0.9% 1000ML 1,000 ML IV SCH (14:39)
--- NOTE | 2022-12-03 14:50 | Ultrasound Report ---
ABDOMINAL ULTRASOUND, RIGHT UPPER QUADRANT HISTORY: liver mets ? amenable to biopsy?. COMPARISON: Chest CTA 12/03/2022. FINDINGS: Pancreas: The pancreatic head and tail are obscured by overlying bowel gas. The remaining portions of the pancreas are within normal limits. Liver: Multiple targetoid masses within the liver with the largest in the right hepatic lobe measurin g 2.8 cm. This is consistent with the patient's known metastatic disease. Gallbladder: No gallbladder wall thickening. No gallstones. CBD: 4 mm. Right kidney: No hydronephrosis. IMPRESSION: Multiple hepatic masses measuring up to 2.8 cm consistent with patient's known history of metastatic disease. ACT 112: Negative or not required by law. Electronically signed by: Obdulio Cotton M.D. 12/03/2022 2:49 PM
[2022-12-03] MEDS ORDERED: MAGNESIUM SULFATE / D5W 1 GM/100 ML BAG IV STA (14:57)
[2022-12-03] MEDS ORDERED: POTASSIUM CHLORIDE CRTAB 20 MEQ TABCR PO STA (14:57)
[2022-12-03 15:13] LABS: Appearance Urine Clear (Clear); Bilirubin Urine Negative (Negative); Blood Urine Negative (Negative); Color Urine Yellow; Glucose Urine UA Negative (Negative); Ketones Urine Negative (Negative); Leukocyte Esterase Urine Negative (Negative); Nitrite Urine Negative (Negative); Protein Urine Negative (Negative); Specific Gravity Urine > 1.045 (1.000-1.030); Urobilinogen Urine Negative (Negative); pH Urine 6.5 (4.5-7.5)
[2022-12-03] MEDS ORDERED: ONDANSETRON INJ 2 MG/ML 2 ML VIAL IV PRN (15:17)
[2022-12-03] MEDS ORDERED: ALUMINUM/MAGNESIUM SUSP 30 ML UDC PO PRN (15:17)
[2022-12-03] MEDS ORDERED: MAGNESIUM HYDROXIDE SUSP 30 ML UDC PO PRN (15:17)
[2022-12-03] MEDS ORDERED: PIPERACILLIN/TAZOBACTAM 4.5 GM in DEXTROSE 5% 100 ML IV ONE (15:30)
[2022-12-03] MEDS: ALBUT/IPRATROP 3MG/0.5MG NEB 3 ML VIAL NEB SCH ×2 (15:35→19:58)
[2022-12-03 18:40] LABS: INR 1.1 (0.9-1.1); Partial Thromboplastin Time 28.2 Seconds (21.0-31.0); Prothrombin Time 12.2 Seconds (9.0-12.0)
[2022-12-03] MEDS: HYDROCORTISONE SOD 100 MG in SYRINGE 0 ML IV SCH (18:53)
[2022-12-03] MEDS: BUDESONIDE 0.25 MG/2 ML VIAL (PULMICORT) NEB SCH (19:57)
[2022-12-03] MEDS: FORMOTEROL 20 MCG/2 ML VIAL INH SCH (19:57)
[2022-12-03] MEDS: QUEtiapine FUMARATE 100 MG TABLET PO SCH (20:10)
[2022-12-03] MEDS: MIRTAZAPINE SOLTAB 15 MG PO SCH (20:10)
[2022-12-03] MEDS: guaiFENesin 600 MG TABCR PO SCH (21:14)
[2022-12-03] MEDS: PIPERACILLIN/TAZOBACTAM 4.5 GM in DEXTROSE 5% 100 ML IV SCH (23:07)
[2022-12-04] MEDS ORDERED: GADOBUTROL 65ML VIAL IV ONE (01:22)
--- NOTE | 2022-12-04 01:51 | Magnetic Resonance Report ---
Exam(s): MRI HEAD W/WO Contrast IV Amt: 8.5cc gadavist EXAM: MR Head Without and With Intravenous Contrast CLINICAL HISTORY: Reason for exam: eval for mets. TECHNIQUE: Magnetic resonance images of the head/brain without and with intravenous contrast in multiple planes. CONTRAST: Patient received 8.5cc gadavist of IV contrast COMPARISON: No relevant prior studies available. FINDINGS: Brain: Abnormal T2 signal in the deep cerebral white matter is consistent with small vessel ischemic/degenerative changes. The cerebral and cerebellar sulci are prominent consistent with brain atrophy. No hemorrhage. Ventricles: Unremarkable. No ventriculomegaly. Bones/joints: Unremarkable. Sinuses: Unremarkable as visualized. No acute sinusitis. Mastoid air cells: Unremarkable as visualized. No mastoid effusion. Orbits: Unremarkable as visualized. IMPRESSION: No evidence to suggest intracranial metastatic disease. Electronically signed by: Rolando Woodward MD 12/04/22 01:50 AM
[2022-12-04] MEDS: HYDROCORTISONE SOD 100 MG in SYRINGE 0 ML IV SCH ×2 (05:10→18:13)
[2022-12-04] MEDS: SODIUM CHLORIDE 0.9% 1000ML 1,000 ML IV SCH ×2 (06:02→18:48)
[2022-12-04] MEDS: FORMOTEROL 20 MCG/2 ML VIAL INH SCH ×2 (07:04→19:26)
[2022-12-04] MEDS: BUDESONIDE 0.25 MG/2 ML VIAL (PULMICORT) NEB SCH ×2 (07:04→19:26)
[2022-12-04] MEDS: ALBUT/IPRATROP 3MG/0.5MG NEB 3 ML VIAL NEB SCH ×5 (07:04→19:38)
[2022-12-04 07:18] LABS: Basophils # (auto) 0.03 K/uL (0-0.2); Basophils % (auto) 0.6 %; Eosinophils # (auto) 0.03 K/uL (0-0.50); Eosinophils % (auto) 0.6 %; Hematocrit (blood only) 32.7 % (42.0-52.0); Hemoglobin 10.7 g/dl (14.0-18.0); Immature Granulocytes # (auto) 0.02 K/uL (0.01-0.20); Immature Granulocytes % (auto) 0.4 %; Mean Corpuscular Hemoglobin 27.6 pg (25.0-34.0); Mean Corpuscular Hgb Conc 32.7 g/dL (32.0-36.0); Mean Corpuscular Volume 84.3 fL (80.0-100.0); Monocytes # (auto) 0.36 K/uL (0.11-0.59); Monocytes % (auto) 6.9 %; Neutrophils # (auto) 3.57 K/uL (1.40-6.50); Neutrophils % (auto) 68.5 %; Platelet Count 412 K/uL (130-400); RDW Coefficient of Variation 13.9 % (11.5-14.5); RDW Standard Deviation 42.8 fL (36.4-46.3); Red Blood Count 3.88 M/uL (4.70-6.10); White Blood Count 5.21 K/ul (4.8-10.8)
[2022-12-04 07:37] LABS: Albumin Level 3.5 gm/dl (3.4-5.0); BUN Creatinine Ratio 12.5 (10-20); Bilirubin,Total 0.4 mg/dl (0.2-1.0); Calcium 8.9 mg/dl (8.6-10.3); Creatinine Clr Calc Pharmacy 77.4 ml/min; Est GFR (African American) 99.5 ml/min; Est GFR (Non-African American) 85.8 ml/min; Globulin 3.4 gm/dl (2.5-4.0); Magnesium 2.2 mg/dl (1.7-2.4); Potassium 4.5 mmol/L (3.5-5.1); Total Protein 6.9 gm/dl (6.0-8.3)
--- NOTE | 2022-12-04 08:34 | Pulmonology Progress Note ---
Date of Service December 04, 2022 Assessment & Plan (1) Abnormal chest CT: (2) LAD (lymphadenopathy), mediastinal: (3) Pneumonia: Laterality: right Lung location: unspecified part of lung Pneumonia type: due to unspecified organism Qualified Code(s): J18.9 - Pneumonia, unspecified organism (4) SOB (shortness of breath): (5) COPD (chronic obstructive pulmonary disease): (6) Peripheral eosinophilia: Plan CT chest 12/03/2022 personally reviewed: Centrilobular and paraseptal emphysema appreciated bilaterally Right lower lobe 2.2 x 1.6 cm nodularity close to the mediastinum/esophagus, another 3.9 x 2.4 cm right lower lobe posterior nodularity Significant mediastinal lymphadenopathy, especially station 7 -- Abnormal chest CT with mediastinal lymphadenopathy and pulmonary nodules Likely representing cancer Seems to be primary lung Respiratory bio fire negative for everything including COVID-19, influenza A/B Procalcitonin 0.17 Platelets 393 MRI brain 12/04/2022 negative for intracranial mets -- COPD with emphysema On Alvesco and montelukast We will put him on budesonide and Perforomist nebulized while in the hospital --Eosinophilia Absolute eosinophil count 910 Plan: For EBUS today. Risk and benefit of the procedure explained with the patient in depth. He agrees to go ahead with the procedure, consent signed, witnessed and put in the chart. Continue with hydrocortisone and antibiotic Please note the above document was generated using voice recognition software. It may contain grammatical, syntax or spelling errors.Any formal questions or concerns about the content, text or information contained within the body of this dictation should be directly addressed to the provider for clarification. Admission and Anticipated Discharge Date Admission Date: December 03, 2022 Subjective Patient seen and examined at bedside. No acute distress, notable since overnight Patient still complaining of cough and difficulty bringing up the phlegm Chest pain still present when he coughs on the left side especially. Denies any hemoptysis Has been afebrile. Review of Systems Review of Systems: All systems reviewed & are unremarkable except as noted in Subjective Physical Exam Physical Exam: Constitutional: No acute distress HEENT: EOMI, PERRLA Respiratory system: Decreased air entry bilaterally, no wheeze, no rhonchi, positive crackles bilaterally CVS: S1-S2 positive, no murmurs or gallops Abdomen: Soft, nontender, nondistended, positive bowel sounds x4 Extremities: +2 pulses bilaterally radialis/ dorsalis pedis, no cyanosis, no edema, positive clubbing Neuro: Awake alert oriented x3 Psych: Normal mood and affect G/U: No Brewer Skin: no rashes, warm and dry Lymphatic: no cervical or axillary lymphadenopathy Results & Data Results & Data Vital Signs (Past 12 Hours) Vital Signs Temp Pulse Pulse Resp BP Pulse Ox O2 Del Method 12/04/22 08:24 37.0 C 79 18 123/77 92 Room Air 12/04/22 07:04 74 18 91 Room Air 12/04/22 02:41 36.7 C 71 16 107/73 92 Room Air 12/03/22 23:39 85 12/03/22 23:04 36.6 C 79 19 98/65 L 91 Room Air Laboratory Results 12/04/22 06:42 12/04/22 06:42 PG Care Time/CCT Total # of Minutes Spent Total Time Spent with Patient: Total time spent is greater than 50% in coordination of care (as documented) at patient's floor/unit and/or counseling patient: Coding Level of Care Code 92566 SUB INP/OBS CARE 3/50MIN Diagnoses Abnormal chest CT R93.89 LAD (lymphadenopathy), mediastinal R59.0 Pneumonia J18.9 Laterality: right Lung location: unspecified part of lung Pneumonia type: due to unspecified organism SOB (shortness of breath) R06.02 COPD (chronic obstructive pulmonary disease) J44.9 Peripheral eosinophilia D72.19
[2022-12-04] MEDS: guaiFENesin 600 MG TABCR PO SCH ×2 (08:38→20:28)
[2022-12-04] MEDS: PANTOprazole 40 MG TAB PO SCH (08:38)
[2022-12-04] MEDS: ATORVASTATIN 40 MG TAB PO SCH (08:38)
[2022-12-04] MEDS: PIPERACILLIN/TAZOBACTAM 4.5 GM in DEXTROSE 5% 100 ML IV SCH ×2 (08:38→18:12)
[2022-12-04] MEDS ORDERED: MONTELUKAST SODIUM 10 MG TABLET PO SCH ×2 (09:00)
[2022-12-04] MEDS ORDERED: Nursing to Pharmacy Communication SCH (09:45)
[2022-12-04] MEDS ORDERED: LIDOCAINE 2% 2 ML VIAL/AMP(20MG/ML) INFIL ONE (12:32)
[2022-12-04] MEDS ORDERED: ONDANSETRON INJ 2 MG/ML 2 ML VIAL ONE (12:32)
[2022-12-04] MEDS ORDERED: DEXAMETHASONE SOD INJ 4 MG/ML VIAL ONE (12:32)
[2022-12-04] MEDS ORDERED: PROPOFOL IV EMULSION 10 MG/ML 20 ML VIAL IV ONE ×3 (12:32→12:34)
[2022-12-04] MEDS ORDERED: MIDAZOLAM HCL 1 MG/ML 2ML VIAL ONE (12:33)
[2022-12-04] MEDS ORDERED: fentaNYL citrate PF 100 MCG/2 ML VIAL ONE ×2 (12:33→14:15)
--- NOTE | 2022-12-04 13:44 | Anesthesiology Consultation ---
Date of Service December 04, 2022 Assessment & Plan Chart Review Chart Review: Acceptable Risk for Surgery Consults Requested none ASA ASA3 Proposed Anesthesia Anesthesia Type: General Risk / Benefits Reviewed With: PT / POA / Parent / Guardian, Accepts Plan and Informed Consent Obtained History Surgery Operation Date: 12/04/22 13:30 Proposed Procedures p Endobronchial Ultrasound - César Mack MD, [facility] s Bronchoscopy - César Mack MD, [facility] Height/Weight Height: 5 ft 6 in Weight: 84.5 kg Allergies Allergy/AdvReac Type Severity Reaction Status Date / Time No Known Allergies Allergy Unverified 12/03/22 11:58 Medications Home Medications Medication Instructions Recorded Confirmed Last Taken albuterol sulfate 90 mcg/actuation 2 puff inhalation QID PRN 12/03/22 12/03/22 Unknown aerosol inhaler Shortness Of Breath aspirin 81 mg chewable tablet 81 mg PO DAILY 12/03/22 12/03/22 Unknown ([facility] Aspirin) atorvastatin 40 mg tablet 40 mg PO DAILY 12/03/22 12/03/22 Unknown ciclesonide 80 mcg/actuation 1 puff inhalation BID 12/03/22 12/03/22 Unknown aerosol inhaler ([facility]) lisinopril 20 mg tablet 20 mg PO DAILY 12/03/22 12/03/22 Unknown mirtazapine 45 mg tablet 45 mg PO HS 12/03/22 12/03/22 Unknown montelukast 10 mg tablet 10 mg PO DAILY 12/03/22 12/03/22 Unknown omeprazole 20 mg tablet,delayed 20 mg PO DAILY 12/03/22 12/03/22 Unknown release quetiapine 100 mg tablet 100 mg PO HS 12/03/22 12/03/22 Unknown Active Medications Generic Name Dose Route Start Last Admin Trade Name Freq PRN Reason Stop Dose Admin Albuterol 3 ml 12/03/22 15:17 12/04/22 10:43 Albut/Ipratrop 3mg/0.5mg Neb 3 Ml Vial NEB 01/02/23 15:16 3 ml QIDR KAITLIN Administration Protocol Atorvastatin Calcium 40 mg 12/04/22 09:00 12/04/22 08:38 Atorvastatin 40 Mg Tab PO 01/03/23 08:59 40 mg DAILY KAITLIN Administration Budesonide 0.25 mg 12/03/22 19:00 12/04/22 07:04 Budesonide 0.25 Mg/2 Ml Vial (Pulmicort) NEB 01/02/23 18:59 0.25 mg BIDR KAITLIN Administration Formoterol Fumarate 20 mcg 12/03/22 19:00 12/04/22 07:04 Formoterol 20 Mcg/2 Ml Vial INH 01/02/23 18:59 20 mcg BIDR KAITLIN Administration Guaifenesin 600 mg 12/03/22 21:00 12/04/22 08:38 Guaifenesin 600 Mg Tabcr PO 01/02/23 20:59 600 mg Q12 KAITLIN Administration Sodium Chloride 1,000 mls @ 80 mls/hr 12/03/22 14:15 12/04/22 12:52 Nss 1000ml IV 01/02/23 14:14 0 mls/hr .[id number] KAITLIN Infusion Piperacillin Sod/Tazobactam 120 mls @ 30 mls/hr 12/03/22 20:00 12/04/22 12:39 Sod 4.5 gm/ Dextrose IV 12/10/22 19:59 Infused Q8H KAITLIN Infusion Protocol Hydrocortisone Sodium 2 mls @ 4 mls/min 12/03/22 18:00 12/04/22 05:10 Succinate 100 mg/ Syringe IV 01/02/23 17:09 4 mls/min Q12H KAITLIN Administration Mirtazapine 45 mg 12/03/22 21:00 12/03/22 20:10 Mirtazapine Soltab 15 Mg PO 01/02/23 20:59 45 mg HS KAITLIN Administration Pantoprazole Sodium 40 mg 12/04/22 09:00 12/04/22 08:38 Pantoprazole 40 Mg Tab PO 01/03/23 08:59 40 mg DAILY KAITLIN Administration Quetiapine Fumarate 100 mg 12/03/22 21:00 12/03/22 20:10 Quetiapine Fumarate 100 Mg Tablet PO 01/02/23 20:59 100 mg HS KAITLIN Administration NPO Date Last Intake of Fluids: 12/03/22 Time Last Intake of Fluids: 23:55 Date Last Intake of Solids: 12/03/22 Time Last Intake of Solids: 17:00 Past Medical History Medical History Asthma Depression with anxiety History of alcohol abuse History of drug use History of tobacco abuse HLD (hyperlipidemia) HTN (hypertension) Past Family History Family History Other Unknown family medical history Past Surgical History Surgical History Hx of cardiac cath pt states no stents were placed Social History Smoking Status: Former smoker Hx Alcohol Use: No Alcohol type: beer Hx Substance Use: No Review of Systems ROS Unobtainable: All systems reviewed & are unremarkable except as noted in HPI & below Physical Exam Vital Signs Last Vital Signs Temp 36.8 C 12/04/22 12:58 Pulse 91 H 12/04/22 12:58 Resp 20 12/04/22 12:58 BP 123/74 12/04/22 12:58 Pulse Ox 91 12/04/22 12:58 O2 Del Method Nasal Cannula 12/04/22 12:58 O2 Flow Rate 2 12/04/22 12:58 ENMT Thyromental Distance: > or= 3.5 Finger Breadths Mallampati Class: II Respiratory normal respiratory effort Auscultation: lungs clear to auscultation bilaterally and + breath sounds absent Cardiovascular Rate/Rhythm: regular rate and regular rhythm Psychiatric Orientation: alert and oriented x 3 Testing Laboratory Results 12/04/22 06:42 12/04/22 06:42 PT 12.2 Seconds (9.0-12.0) H 12/03/22 09:51 INR 1.1 (0.9-1.1) 12/03/22 09:51 APTT 28.2 Seconds (21.0-31.0) 12/03/22 09:51 Urine Color Yellow 12/03/22 Unknown Urine Appearance Clear (Clear) 12/03/22 Unknown Urine pH 6.5 (4.5-7.5) 12/03/22 Unknown Ur Specific Rhine > 1.045 (1.000-1.030) H 12/03/22 Unknown Urine Protein Negative (Negative) 12/03/22 Unknown Urine Glucose (UA) Negative (Negative) 12/03/22 Unknown Urine Ketones Negative (Negative) 12/03/22 Unknown Urine Nitrite Negative (Negative) 12/03/22 Unknown Ur Leukocyte Esterase Negative (Negative) 12/03/22 Unknown 12/03/22 09:39 Aerobic Blood Culture - Preliminary Blood No growth in Aerobic bottle after 24 hours. Anaerobic Blood Culture - Preliminary No growth in Anaerobic bottle after 24 hours. 12/03/22 09:36 Aerobic Blood Culture - Preliminary Blood No growth in Aerobic bottle after 24 hours. Anaerobic Blood Culture - Preliminary No growth in Anaerobic bottle after 24 hours.
[2022-12-04] MEDS ORDERED: ATROPINE SULFATE 0.1 MG/ML 10ML SYR IV PRN (13:45)
[2022-12-04] MEDS ORDERED: ePHEDrine sulfate 50 MG/ML AMP IV PRN (13:45)
[2022-12-04] MEDS ORDERED: fentaNYL citrate PF 100 MCG/2 ML VIAL IV PRN (13:45)
[2022-12-04] MEDS ORDERED: HYDROmorphone INJ 1 MG/ML SYRINGE IV PRN (13:45)
[2022-12-04] MEDS ORDERED: ONDANSETRON INJ 2 MG/ML 2 ML VIAL IV PRN (13:45)
[2022-12-04] MEDS ORDERED: PHENYLEPHRINE 100MCG/ML 5ML SYR ONE (14:18)
--- NOTE | 2022-12-04 15:09 | Procedure Note ---
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 INDICATION: Rule out malignancy PROCEDURE: After obtaining an informed consent, the patient was brought to the OR. The patient had appropriate oxygen, blood pressure, heart rate, and respiratory rate monitoring applied and monitored continuously throughout the procedure. Sedation was managed by anesthesia, please refer to their notes Bronchoscope was advanced through LMA There was normal vocal cord motion without masses or lesions. Additional topical anesthesia with 1% lidocaine was applied to the trachea and levon. The trachea appeared normal.The bronchoscope was then advanced through the jocelyn na, which was widened. The scope was then advanced into the right main stem and each segment, subsegement in the right upper lobe had only 2 segments, right middle lobe and right lower lobe were visualized. There was minimal amount of clear secretion which was suctioned out. Starting from the RBI the endobronchial mucosa was very edematous and constrictive going into the right middle as well as right lower lobe subsegments The bronchoscope was subsequently withdrawn and advanced into the left mainstem. Again, each segment and subsegment was well visualized. No specific masses or other lesions were identified throughout the tracheobronchial tree on the left. There was minimal amount of clear secretion which was suctioned Flexible bronchoscope was withdrawn and EBUS was introduced Station 7: 7 passes with multiple sweeps :-Atypical cells present Station 4R: 3 passes with multiple sweeps :-Atypical cells present The bronchoscope was then wedged in the right lower lobe anterior segment and bronchoalveolar lavage samples were obtained. 120 ml of saline was instilled and 25 ml of fluid was aspirated back.The bronchoscope was withdrawn and the area was suctioned clear. The bronchoscope was then wedged in the right middle lobe and bronchoalveolar lavage samples were obtained. 70 ml of saline was instilled and 30 ml of fluid was aspirated back.The bronchoscope was withdrawn and the area was suctioned clear. The bronchoscope was then withdrawn to the mainstem. The area was suctioned clear. The bronchoscope was then withdrawn. The patient tolerated the procedure well without evidence of desaturation or complications. Bronchoalveolar lavage samples were sent for cell count cytology. Recommendations: Follow-up cytology and pathology Follow-up chest x-ray Please note the above document was generated using voice recognition software. It may contain grammatical, syntax or spelling errors.Any formal questions or concerns about the content, text or information contained within the body of this dictation should be directly addressed to the provider for clarification. [facility] Procedure Codes (Charges) Pulmonary/Thoracic Procedure 1: Pulmonary and Thoracic: 63744 Dx bronchoscopy/BAL Procedure 2: Pulmonary and Thoracic: 93276 Bronchoscopy, w/EBUS add on Procedure 3: Pulmonary and Thoracic: 88823 Bronchoscopy, w/EBUS 1 or 2 mediastinal
--- NOTE | 2022-12-04 15:14 | Anesthesiology Progress Note ---
Date of Service December 04, 2022 Anesthesia Post Procedure Vital Signs Vital Signs: Temp Pulse Pulse Pulse Resp BP BP 12/04/22 15:05 94 H 26 H 99/70 L 12/04/22 14:55 111 H 22 112/90 12/04/22 14:45 36.3 C L 102 H 34 H 111/68 12/04/22 12:58 36.8 C 91 H 20 123/74 12/04/22 12:00 12/04/22 09:15 12/04/22 11:52 37.0 C 94 H 18 113/74 12/04/22 10:44 79 18 12/04/22 08:24 37.0 C 79 18 123/77 12/04/22 07:04 74 18 12/04/22 02:41 36.7 C 71 16 107/73 12/03/22 23:39 85 12/03/22 19:50 76 12/03/22 23:04 36.6 C 79 19 98/65 L 12/03/22 19:50 12/03/22 19:54 36.3 C L 78 78 19 102/68 12/03/22 19:58 72 18 12/03/22 18:54 73 18 117/69 12/03/22 18:19 74 19 90/63 L 12/03/22 17:22 88 12/03/22 16:07 77 Pulse Ox O2 Del Method O2 Flow Rate 12/04/22 15:05 89 L Nasal Cannula 4 12/04/22 14:55 90 Oxymask 10 12/04/22 14:45 91 Oxymask 15 12/04/22 12:58 91 Nasal Cannula 2 12/04/22 12:00 93 Nasal Cannula 2 12/04/22 09:15 Room Air 12/04/22 11:52 88 L Room Air 12/04/22 10:44 92 Room Air 12/04/22 08:24 92 Room Air 12/04/22 07:04 91 Room Air 12/04/22 02:41 92 Room Air 12/03/22 23:39 12/03/22 19:50 12/03/22 23:04 91 Room Air 12/03/22 19:50 Room Air 12/03/22 19:54 93 Room Air 12/03/22 19:58 92 Room Air 12/03/22 18:54 97 Room Air 12/03/22 18:19 93 Room Air 12/03/22 17:22 12/03/22 16:07 Transfer of Care Handoff Completed per policy Notes Mental Status: alert / awake / arousable Patient Amnestic to Procedure: Yes Nausea / Vomiting: adequately controlled Pain: adequately controlled Airway Patency, RR, SpO2: stable & adequate BP & HR: stable & adequate Hydration State: stable & adequate Anesthetic Complications: no major complications apparent and Pt Satisfied with anesthetic care
--- NOTE | 2022-12-04 15:29 | XRay Report ---
XR chest 1V portable CLINICAL HISTORY: Post Bronchoscopy COMPARISON STUDY: Chest radiograph and chest CT December 03, 2022. FINDINGS: There is no pneumothorax status post bronchoscopy. No pleural effusion is noted. Lung volum es are diminished. Interstitial thickening is again noted as well as right lower lung airspace opacit y. Cardiomediastinal silhouette is grossly stable. Mediastinal lymphadenopathy is better depicted on prior CT. IMPRESSION: 1. No pneumothorax status post bronchoscopy. 2. Diffuse interstitial thickening and right lower lung airspace opacity, better depicted on prior ch est CT. ACT 112: Negative or not required by law. Electronically signed by: Romeo Mortensen M.D. 12/04/2022 3:27 PM
--- NOTE | 2022-12-04 17:37 | Hospitalist Progress Note ---
Date of Service December 04, 2022 Assessment & Plan (1) Abnormal chest CT: (2) Pneumonia: (3) Hypotension: Plan This is a 72-year-old male who has a significant past medical history of HTN, HLD, depression with anxiety, asthma, history of [id number] tobacco abuse, history of alcohol abuse and history of drug use who presents from [facility] secondary to cough x3 weeks. CT of the chest revealed no pulmonary emboli but several nodules throughout the lungs that may represent a neoplastic process favoring a primary lung malignancy such small cell carcinoma. Superimposed pneumonia could also appear similar. There was interlobular septal thickening in the lungs most #the right lower lobe suggesting lymphangitic carcinomatosis and there were also numerous hepatic metastasis seen. Bronchoscopy performed today with results pending Continue empiric antibiotics and bronchodilators Abdominal ultrasound revealing multiple hepatic masses measuring up to 2.8 cm consistent with metastatic disease. Will await bronchoscopy results then consider additional staging/biopsies as needed. Hypotension-resolved lactic acidosis-resolved possible sepsis on admission / PNA blood cultures pending, urine negative Received total of 2L of IVF in ED Precordial Chest pain likely MSk from cough, reproducible cardiac enzymes were trended and negative. Wandering Atrial Pacemaker pt with evidence of what appeared to be afib on tele @ 1310, RVR with hypotension now back in sinus rhythm possibly due to underlying pulmonary issue vs sepsis Discussed with cards to review tele who felt wandering atrial pacemaker, not afib will monitor mag and K to keep > 2 and 4.0, respectively HTN hold lisinopril due to hypotension HLD continue statin Asthma, no acute exac duonebs hold home inhaler Hx of tobacco abuse Hx of alcohol abuse Hx of Drug use with cocaine and marijuana Pt confirms he is a DNR/DNI but does state at this point he would wish to pursue treatment of cancer depending on prognosis. Discussed with CM who agreed Prisoners have right to Medical decision making Dispo: admit to PCU PCP: Fidelina Chacon DO [facility] Hospitalist Admission and Anticipated Discharge Date Admission Date: December 03, 2022 Subjective 72-year-old incarcerated male presented with 3 weeks of excessive coughing. He reports being treated with 5 days of antibiotic that did not improve his sym ptoms while in the present. He was told at that time he had pneumonia. He still reports cough is present and does not feel improved today but does not feel worse either He is asking for something for cough. Recently completed bronchoscopy this afternoon. Review of Systems Review of Systems: All systems reviewed negative except as indicated above. Physical Exam Physical Exam: CONSTITUTIONAL: WNWD, vitals as above, generally well-appearing, NAD EYES: normal conjunctivae, no scleral icterus ENT: external ear and nose normal, 91% on 6 LPM NECK: trachea midline RESPIRATORY: clear to auscultation bilaterally, no crackles, rales or wheezes, normal respiratory effort CARDIOVASCULAR: regular rate and rhythm, S1 and 2 heard without murmurs, gallops or rubs, no JVD, no peripheral edema CHEST: inspection of chest was normal GASTROINTESTINAL: soft, nontender, ND, no guarding MUSCULOSKELETAL: strength 5/5 throughout, head is normocephalic and atraumatic SKIN: warm and dry NEUROLOGIC: CN 2-12 grossly intact, no sensory deficit, normal cognition, normal speech, no tremor PSYCHIATRIC: alert cooperative and oriented to person, place and time. Results & Data Results & Data Vital Signs (Past 12 Hours) Vital Signs Temp Pulse Pulse Resp BP BP Pulse Ox 12/04/22 16:22 76 18 93 12/04/22 16:03 36.6 C 85 20 115/69 91 12/04/22 15:40 87 20 107/68 92 12/04/22 15:25 36.7 C 89 19 119/71 90 12/04/22 15:15 95 H 20 120/71 93 12/04/22 15:05 94 H 26 H 99/70 L 89 L 12/04/22 14:55 111 H 22 112/90 90 12/04/22 14:45 36.3 C L 102 H 34 H 111/68 91 12/04/22 12:58 36.8 C 91 H 20 123/74 91 12/04/22 12:00 93 12/04/22 09:15 12/04/22 11:52 37.0 C 94 H 18 113/74 88 L 12/04/22 10:44 79 18 92 12/04/22 08:24 37.0 C 79 18 123/77 92 12/04/22 07:04 74 18 91 O2 Del Method O2 Flow Rate 12/04/22 16:22 Nasal Cannula 6 12/04/22 16:03 Nasal Cannula 6 12/04/22 15:40 Nasal Cannula 4 12/04/22 15:25 Nasal Cannula 4 12/04/22 15:15 Nasal Cannula 4 12/04/22 15:05 Nasal Cannula 4 12/04/22 14:55 Oxymask 10 12/04/22 14:45 Oxymask 15 12/04/22 12:58 Nasal Cannula 2 12/04/22 12:00 Nasal Cannula 2 12/04/22 09:15 Room Air 12/04/22 11:52 Room Air 12/04/22 10:44 Room Air 12/04/22 08:24 Room Air 12/04/22 07:04 Room Air Laboratory Results Short CBC 12/04/22 Range/Units 06:42 WBC 5.21 (4.8-10.8) K/ul Hgb 10.7 L (14.0-18.0) g/dl Hct 32.7 L (42.0-52.0) % Plt Count 412 H (130-400) K/uL BMP 12/04/22 06:42 Sodium 140 Potassium 4.5 D Chloride 111 H Carbon Dioxide 21 BUN 11 Creatinine 0.88 Glucose 108 H Calcium 8.9 Liver Function 12/04/22 Range/Units 06:42 Total Bilirubin 0.4 (0.2-1.0) mg/dl AST 25 (13-39) U/L ALT 10 (7-52) U/L Alkaline Phosphatase 67 (34-104) U/L Albumin 3.5 (3.4-5.0) gm/dl Diagnostic Findings Chest X-Ray 12/04/22 15:02 XR chest 1V portable CLINICAL HISTORY: Post Bronchoscopy COMPARISON STUDY: Chest radiograph and chest CT December 03, 2022. FINDINGS: There is no pneumothorax status post bronchoscopy. No pleural effusion is noted. Lung volumes are diminished. Interstitial thickening is again noted as well as right lower lung airspace opacity. Cardiomediastinal silhouette is grossly stable. Mediastinal lymphadenopathy is better depicted on prior CT. IMPRESSION: 1. No pneumothorax status post bronchoscopy. 2. Diffuse interstitial thickening and right lower lung airspace opacity, better depicted on prior chest CT. ACT 112: Negative or not required by law. Electronically signed by: Romeo Mortensen M.D. 12/04/2022 3:27 PM Medications Administered Current Inpatient Medications Acetaminophen (Acetaminophen 325 Mg Tab) 650 mg PO Q4H PRN PRN Reason: Pain or Fever Stop: 01/02/23 15:16 Al Hydrox/Mg Hydrox/Simethicone (Aluminum/Magnesium Susp 30 Ml Udc) 15 ml PO Q4H PRN PRN Reason: Dyspepsia Stop: 01/02/23 15:16 Albuterol (Albut/Ipratrop 3mg/0.5mg Neb 3 Ml Vial) 3 ml NEB QIDR KAITLIN; Protocol Stop: 01/02/23 15:16 Last Admin: 12/04/22 16:21 Dose: 3 ml Atorvastatin Calcium (Atorvastatin 40 Mg Tab) 40 mg PO DAILY [facility] Stop: 01/03/23 08:59 Last Admin: 12/04/22 08:38 Dose: 40 mg Atropine Sulfate (Atropine Sulfate 0.1 Mg/Ml 10ml Syr) 0.5 mg IV Q1M PRN PRN Reason: PACU Use-HR<40 &/or Bradycardi Stop: 12/04/22 21:45 Budesonide (Budesonide 0.25 Mg/2 Ml Vial (Pulmicort)) 0.25 mg NEB BIDR [facility] Stop: 01/02/23 18:59 Last Admin: 12/04/22 07:04 Dose: 0.25 mg Ephedrine Sulfate (Ephedrine Sulfate 50 Mg/Ml Amp) 5 mg IV Q5M PRN PRN Reason: PACU Use Only-SBP<90 mmHg Stop: 12/04/22 21:45 Fentanyl Citrate (Fentanyl Citrate Pf 100 Mcg/2 Ml Vial) 25 mcg IV Q5M PRN PRN Reason: PACU Use Only-Pain Stop: 12/04/22 21:45 Formoterol Fumarate (Formoterol 20 Mcg/2 Ml Vial) 20 mcg INH BIDR [facility] Stop: 01/02/23 18:59 Last Admin: 12/04/22 07:04 Dose: 20 mcg Guaifenesin (Guaifenesin 600 Mg Tabcr) 600 mg PO Q12 [facility] Stop: 01/02/23 20:59 Last Admin: 12/04/22 08:38 Dose: 600 mg Hydromorphone HCl (Hydromorphone Inj 1 Mg/Ml Syringe) 0.25 mg IV Q5M PRN PRN Reason: PACU Use Only-Pain Stop: 12/04/22 21:45 Sodium Chloride (Nss 1000ml) 1,000 mls @ 80 mls/hr IV .[id number] [facility] Stop: 01/02/23 14:14 Last Infusion: 12/04/22 12:52 Dose: 0 mls/hr Piperacillin Sod/Tazobactam (Sod 4.5 gm/ Dextrose) 120 mls @ 30 mls/hr IV Q8H [facility]; Protocol Stop: 12/10/22 19:59 Last Infusion: 12/04/22 12:39 Dose: Infused Hydrocortisone Sodium (Succinate 100 mg/ Syringe) 2 mls @ 4 mls/min IV Q12H [facility] Stop: 01/02/23 17:09 Last Admin: 12/04/22 05:10 Dose: 4 mls/min Magnesium Hydroxide (Magnesium Hydroxide Susp 30 Ml Udc) 30 ml PO Q12H PRN PRN Reason: Constipation Stop: 01/02/23 15:16 Mirtazapine (Mirtazapine Soltab 15 Mg) 45 mg PO [facility] Stop: 01/02/23 20:59 Last Admin: 12/03/22 20:10 Dose: 45 mg Montelukast Sodium (Montelukast Sodium 10 Mg Tablet) 10 mg PO [facility] Stop: 01/03/23 20:59 Ondansetron HCl (Ondansetron Inj 2 Mg/Ml 2 Ml Vial) 4 mg IV Q6H PRN PRN Reason: Nausea Stop: 01/02/23 15:16 Ondansetron HCl (Ondansetron Inj 2 Mg/Ml 2 Ml Vial) 4 mg IV ONCE PRN PRN Reason: PACU Use Only-Nausea/Vomiting Stop: 12/04/22 21:45 Pantoprazole Sodium (Pantoprazole 40 Mg Tab) 40 mg PO DAILY [facility] Stop: 01/03/23 08:59 Last Admin: 12/04/22 08:38 Dose: 40 mg Polyethylene Glycol (Polyethylene (Miralax) 17 Gm Pack) 17 gm PO DAILY PRN PRN Reason: Constipation Stop: 01/02/23 15:16 Quetiapine Fumarate (Quetiapine Fumarate 100 Mg Tablet) 100 mg PO [facility] Stop: 01/02/23 20:59 Last Admin: 12/03/22 20:10 Dose: 100 mg
[2022-12-04] MEDS: MIRTAZAPINE SOLTAB 15 MG PO SCH (20:28)
[2022-12-04] MEDS: QUEtiapine FUMARATE 100 MG TABLET PO SCH (20:28)
[2022-12-04] MEDS: MONTELUKAST SODIUM 10 MG TABLET PO SCH (20:28)
--- NOTE | 2022-12-04 20:51 | Electrocardiogram Report ---
Test Reason : Blood Pressure : / mmHG Vent. Rate : 077 BPM Atrial Rate : 077 BPM P-R Int : 234 ms QRS Dur : 078 ms QT Int : 376 ms P-R-T Axes : 023 -36 029 degrees QTc Int : 425 ms Poor data quality, interpretation may be adversely affected Sinus rhythm Left axis deviation Abnormal ECG No previous ECGs available Confirmed by Elia Lynch ([id number]) on 12/04/2022 8:51:48 PM Referred By: Fidelina SCI Confirmed By:Elia Lynch
--- NOTE | 2022-12-04 20:53 | Electrocardiogram Report ---
Test Reason : Blood Pressure : / mmHG Vent. Rate : 085 BPM Atrial Rate : 085 BPM P-R Int : 208 ms QRS Dur : 086 ms QT Int : 382 ms P-R-T Axes : 030 023 054 degrees QTc Int : 454 ms Sinus rhythm with Premature atrial complexes in a pattern of bigeminy Otherwise normal ECG When compared with ECG of 03-DEC-2022 09:23, (unconfirmed) Premature atrial complexes are now Present Confirmed by Elia Lynch ([id number]) on 12/04/2022 8:52:37 PM Referred By: Fidelina SCI Confirmed By:Elia Lynch
--- NOTE | 2022-12-04 21:13 | Electrocardiogram Report ---
Test Reason : Blood Pressure : / mmHG Vent. Rate : 091 BPM Atrial Rate : 091 BPM P-R Int : 240 ms QRS Dur : 084 ms QT Int : 362 ms P-R-T Axes : 030 -29 028 degrees QTc Int : 445 ms Sinus rhythm with 1st degree A-V block Otherwise normal ECG When compared with ECG of 03-DEC-2022 09:32, (unconfirmed) Premature atrial complexes are no longer Present ND interval has increased QRS axis Shifted left Confirmed by Elia Lynch ([id number]) on 12/04/2022 9:12:50 PM Referred By: Fidelina LIU Confirmed By:Elia Lynch
[2022-12-05] MEDS: PIPERACILLIN/TAZOBACTAM 4.5 GM in DEXTROSE 5% 100 ML IV SCH ×4 (00:14→23:53)
[2022-12-05] MEDS: HYDROCORTISONE SOD 100 MG in SYRINGE 0 ML IV SCH (05:26)
[2022-12-05 06:22] LABS: Calcium 8.5 mg/dl (8.6-10.3); Creatinine Clr Calc Pharmacy 62.8 ml/min; Est GFR (African American) 78.2 ml/min; Est GFR (Non-African American) 67.5 ml/min; Potassium 3.7 mmol/L (3.5-5.1)
[2022-12-05 06:23] LABS: Hematocrit (blood only) 31.6 % (42.0-52.0); Hemoglobin 10.1 g/dl (14.0-18.0); Mean Corpuscular Hemoglobin 27.2 pg (25.0-34.0); Mean Corpuscular Volume 84.9 fL (80.0-100.0); Platelet Count 388 K/uL (130-400); RDW Coefficient of Variation 13.7 % (11.5-14.5); RDW Standard Deviation 42.7 fL (36.4-46.3); Red Blood Count 3.72 M/uL (4.70-6.10); White Blood Count 10.46 K/ul (4.8-10.8)
[2022-12-05] MEDS: FORMOTEROL 20 MCG/2 ML VIAL INH SCH ×2 (06:53→19:20)
[2022-12-05] MEDS: BUDESONIDE 0.25 MG/2 ML VIAL (PULMICORT) NEB SCH ×2 (06:54→19:20)
--- NOTE | 2022-12-05 09:00 | Pulmonology Progress Note ---
Date of Service December 05, 2022 Assessment & Plan (1) Abnormal chest CT: (2) LAD (lymphadenopathy), mediastinal: (3) Pneumonia: Laterality: right Lung location: unspecified part of lung Pneumonia type: due to unspecified organism Qualified Code(s): J18.9 - Pneumonia, unspecified organism (4) SOB (shortness of breath): (5) COPD (chronic obstructive pulmonary disease): (6) Peripheral eosinophilia: Plan CT chest 12/03/2022 personally reviewed: Centrilobular and paraseptal emphysema appreciated bilaterally Right lower lobe 2.2 x 1.6 cm nodularity close to the mediastinum/esophagus, another 3.9 x 2.4 cm right lower lobe posterior nodularity Significant mediastinal lymphadenopathy, especially station 7 2D echo 12/04/2022: EF 60-65%, mild concentric LVH, RV normal in size and function , grade 1 diastolic dysfunction -- Abnormal chest CT with mediastinal lymphadenopathy and pulmonary nodules Likely representing cancer Seems to be primary lung Respiratory bio fire negative for everything including COVID-19, influenza A/B Procalcitonin 0.17 Platelets 393 MRI brain 12/04/2022 negative for intracranial mets S/p EBUS 12/04/2022, follow-up cytology and pathology -- COPD with emphysema On Alvesco and montelukast We will put him on budesonide and Perforomist nebulized while in the hospital --Eosinophilia Absolute eosinophil count 910 Plan: DC hydrocortisone, give Solu-Medrol 40 mg every 12 Continue with Brovana/budesonide. I will add hypertonic saline Continue with Mucinex and flutter valve O2 supplementation to keep oxygen saturation between 88-92% Please note the above document was generated using voice recognition software. It may contain grammatical, syntax or spelling errors.Any formal questions or concerns about the content, text or information contained within the body of this dictation should be directly addressed to the provider for clarification. Admission and Anticipated Discharge Date Admission Date: December 03, 2022 Subjective Patient seen and examined at bedside. No acute distress, no adverse events overnight He was saturating 96% on 4 L nasal cannula. I went down to 2 L. He has been complaining of cough and difficulty bringing up the phlegm. Still complaining of pleuritic chest pain when he coughs on the left. No hemoptysis Has been afebrile Fair appetite Review of Systems Review of Systems: All systems reviewed & are unremarkable except as noted in Subjective Physical Exam Physical Exam: Constitutional: No acute distress HEENT: EOMI, PERRLA Respiratory system: Decreased air entry bilaterally, positive expiratory wheeze, positive rhonchi, positive crackles bilateral lower lobes more on the right CVS: S1-S2 positive, no murmurs or gallops Abdomen: Soft, nontender, nondistended, positive bowel sounds x4 Extremities: +2 pulses bilaterally radialis/ dorsalis pedis, no cyanosis, no edema, positive clubbing Neuro: Awake alert oriented x3 Psych: Normal mood and affect G/U: No Brewer Skin: no rashes, warm and dry Lymphatic: no cervical or axillary lymphadenopathy Results & Data Results & Data Vital Signs (Past 12 Hours) Vital Signs Temp Pulse Pulse Resp BP Pulse Ox O2 Del Method 12/05/22 07:42 36.5 C 85 17 120/71 92 Room Air 12/05/22 06:55 74 18 97 Nasal Cannula 12/05/22 03:36 36.4 C L 80 17 112/71 95 Nasal Cannula 12/04/22 23:26 36.5 C 80 19 106/74 95 Nasal Cannula 12/04/22 22:01 83 O2 Flow Rate 12/05/22 07:42 12/05/22 06:55 6 12/05/22 03:36 6 12/04/22 23:26 6 12/04/22 22:01 Laboratory Results 12/05/22 05:39 12/05/22 05:39 PG Care Time/CCT Total # of Minutes Spent Total Time Spent with Patient: Total time spent is greater than 50% in coordination of care (as documented) at patient's floor/unit and/or counseling patient: Coding Level of Care Code 92988 SUB INP/OBS CARE 3/50MIN Diagnoses Abnormal chest CT R93.89 LAD (lymphadenopathy), mediastinal R59.0 Pneumonia J18.9 Laterality: right Lung location: unspecified part of lung Pneumonia type: due to unspecified organism SOB (shortness of breath) R06.02 COPD (chronic obstructive pulmonary disease) J44.9 Peripheral eosinophilia D72.19
[2022-12-05] MEDS: guaiFENesin 600 MG TABCR PO SCH ×2 (09:10→20:10)
[2022-12-05] MEDS: PANTOprazole 40 MG TAB PO SCH (09:10)
[2022-12-05] MEDS: ATORVASTATIN 40 MG TAB PO SCH (09:10)
[2022-12-05] MEDS: ALBUT/IPRATROP 3MG/0.5MG NEB 3 ML VIAL NEB SCH ×4 (10:07→19:20)
--- NOTE | 2022-12-05 10:46 | Hospitalist Progress Note ---
Date of Service December 05, 2022 Assessment & Plan (1) Abnormal chest CT: (2) Pneumonia: (3) Hypotension: (4) Anemia: (5) HCV (hepatitis C virus): Plan This is a 72-year-old male who has a significant past medical history of HTN, HLD, depression with anxiety, asthma, history of [id number]-cmql tobacco abuse, history of alcohol abuse and history of drug use who presents from [facility] secondary to cough x3 weeks. Hypotension-resolved lactic acidosis-resolved possible sepsis on admission 09/03 PNA blood cultures pending, urine negative Received total of 2L of IVF in ED Abnormal chest CT Liver masses Anemia HCV Patient with weight loss 20 lb in past month Lung nodules and liver masses suggest metastatic cancer-path pending from bronch on 12/04 Anemia multifactorial but may have to do with chronic disease Ongoing HCV infection, previously denied trt HCV RNA per GI-apprec recs. Precordial Chest pain likely MSk from cough, reproducible cardiac enzymes were trended and negative. Wandering Atrial Pacemaker pt with evidence of what appeared to be afib on tele @ 1310, RVR with hypotension now back in sinus rhythm possibly due to underlying pulmonary issue vs sepsis Discussed with cards to review tele who felt wandering atrial pacemaker, not afib will monitor mag and K to keep > 2 and 4.0, respectively HTN hold lisinopril due to hypotension HLD continue statin Asthma, no acute exac duonebs hold home inhaler Hx of tobacco abuse Hx of alcohol abuse Hx of Drug use with cocaine and marijuana Pt confirms he is a DNR/DNI but does state at this point he would wish to pursue treatment of cancer depending on prognosis. Discussed with CM who agreed Prisoners have right to Medical decision making Dispo: admit to PCU PCP: Fidelina Chacon DO [facility] Hospitalist Admission and Anticipated Discharge Date Admission Date: December 03, 2022 Subjective 72-year-old incarcerated male presented with 3 weeks of excessive coughing. He reports being treated with 5 days of antibiotic that did not improve his symptoms while in the present. He was told at that time he had pneumonia. still feels that his breathing is poor still is coughing denies fever currently receiving breathing treatment he reports a history of hep C virus in the past but was declined treatment a few years ago we discussed the findings of nodules in his lungs and liver which appear consistent with malignancy, but we have no tissue to diagnose this yet He reports 20 lb weight loss in the past month GI and Pulm seeing him today Review of Systems Review of Systems: All systems reviewed negative except as indicated above. Physical Exam Physical Exam: CONSTITUTIONAL: WNWD, vitals as above, generally well-appearing, NAD EYES: normal conjunctivae, no scleral icterus ENT: external ear and nose normal, 91% on 6 LPM NECK: trachea midline RESPIRATORY: clear to auscultation bilaterally, no crackles, rales or wheezes, normal respiratory effort CARDIOVASCULAR: regular rate and rhythm, S1 and 2 heard without murmurs, gallops or rubs, no JVD, no peripheral edema CHEST: inspection of chest was normal GASTROINTESTINAL: soft, nontender, ND, no guarding MUSCULOSKELETAL: strength 5/5 throughout, head is normocephalic and atraumatic SKIN: warm and dry NEUROLOGIC: CN 2-12 grossly intact, no sensory deficit, normal cognition, normal speech, no tremor PSYCHIATRIC: alert cooperative and oriented to person, place and time. Results & Data Results & Data Vital Signs (Past 12 Hours) Vital Signs Temp Pulse Resp BP Pulse Ox O2 Del Method O2 Flow Rate 12/05/22 07:42 36.5 C 85 17 120/71 92 Room Air 12/05/22 06:55 74 18 97 Nasal Cannula 6 12/05/22 03:36 36.4 C L 80 17 112/71 95 Nasal Cannula 6 12/04/22 23:26 36.5 C 80 19 106/74 95 Nasal Cannula 6 Laboratory Results Short CBC 12/05/22 Range/Units 05:39 WBC 10.46 (4.8-10.8) K/ul Hgb 10.1 L (14.0-18.0) g/dl Hct 31.6 L (42.0-52.0) % Plt Count 388 (130-400) K/uL BMP 12/05/22 05:39 Sodium 139 Potassium 3.7 Chloride 112 H Carbon Dioxide 21 BUN 12 Creatinine 1.09 Glucose 138 H Calcium 8.5 L Medications Administered Current Inpatient Medications Acetaminophen (Acetaminophen 325 Mg Tab) 650 mg PO Q4H PRN PRN Reason: Pain or Fever Stop: 01/02/23 15:16 Al Hydrox/Mg Hydrox/Simethicone (Aluminum/Magnesium Susp 30 Ml Udc) 15 ml PO Q4H PRN PRN Reason: Dyspepsia Stop: 01/02/23 15:16 Albuterol (Albut/Ipratrop 3mg/0.5mg Neb 3 Ml Vial) 3 ml NEB QIDR KAITLIN; Protocol Stop: 01/02/23 15:16 Last Admin: 12/05/22 10:07 Dose: Not Given Atorvastatin Calcium (Atorvastatin 40 Mg Tab) 40 mg PO DAILY KAITLIN Stop: 01/03/23 08:59 Last Admin: 12/05/22 09:10 Dose: 40 mg Budesonide (Budesonide 0.25 Mg/2 Ml Vial (Pulmicort)) 0.25 mg NEB BIDR [facility] Stop: 01/02/23 18:59 Last Admin: 12/05/22 06:54 Dose: 0.25 mg Formoterol Fumarate (Formoterol 20 Mcg/2 Ml Vial) 20 mcg INH BIDR [facility] Stop: 01/02/23 18:59 Last Admin: 12/05/22 06:53 Dose: 20 mcg Guaifenesin (Guaifenesin 600 Mg Tabcr) 600 mg PO Q12 [facility] Stop: 01/02/23 20:59 Last Admin: 12/05/22 09:10 Dose: 600 mg Guaifenesin/Codeine Phosphate (Guaifenesin/Codeine 200mg/20mg 10ml Udc) 10 ml PO Q6H PRN PRN Reason: Cough Stop: 01/03/23 18:27 Last Admin: 12/04/22 19:47 Dose: 10 ml Piperacillin Sod/Tazobactam (Sod 4.5 gm/ Dextrose) 120 mls @ 30 mls/hr IV Q8H [facility]; Protocol Stop: 12/10/22 19:59 Last Admin: 12/05/22 09:19 Dose: 30 mls/hr Hydrocortisone Sodium (Succinate 100 mg/ Syringe) 2 mls @ 4 mls/min IV Q12H [facility] Stop: 01/02/23 17:09 Last Admin: 12/05/22 05:26 Dose: 4 mls/min Magnesium Hydroxide (Magnesium Hydroxide Susp 30 Ml Udc) 30 ml PO Q12H PRN PRN Reason: Constipation Stop: 01/02/23 15:16 Mirtazapine (Mirtazapine Soltab 15 Mg) 45 mg PO HS [facility] Stop: 01/02/23 20:59 Last Admin: 12/04/22 20:28 Dose: 45 mg Montelukast Sodium (Montelukast Sodium 10 Mg Tablet) 10 mg PO HS [facility] Stop: 01/03/23 20:59 Last Admin: 12/04/22 20:28 Dose: 10 mg Ondansetron HCl (Ondansetron Inj 2 Mg/Ml 2 Ml Vial) 4 mg IV Q6H PRN PRN Reason: Nausea Stop: 01/02/23 15:16 Pantoprazole Sodium (Pantoprazole 40 Mg Tab) 40 mg PO DAILY KAITLIN Stop: 01/03/23 08:59 Last Admin: 12/05/22 09:10 Dose: 40 mg Polyethylene Glycol (Polyethylene (Miralax) 17 Gm Pack) 17 gm PO DAILY PRN PRN Reason: Constipation Stop: 01/02/23 15:16 Quetiapine Fumarate (Quetiapine Fumarate 100 Mg Tablet) 100 mg PO HS [facility] Stop: 01/02/23 20:59 Last Admin: 12/04/22 20:28 Dose: 100 mg
[2022-12-05] MEDS: methylPREDNISolone 40 MG in SYRINGE 0 ML IV SCH ×2 (13:47→20:11)
--- NOTE | 2022-12-05 14:51 | Gastrointestinal Consultation ---
Date of Consultation December 05, 2022 Assessment & Plan (1) Abnormal chest CT: He has multiple lesions in his liver that are most consistent with metastatic disease. We do not know he has hepatitis C at this time, only that he has had it. Hep C PCR can be done as can an alphafetoprotein. I suspect his liver l esions related to pulmonary primary and would rather not give him two diseases. However pursuit with liver biopsy can be considered if deemed helpful History of Present Illness Reason for Consultation: hep c + and liver masses Attending Physician: Melba Chacon DO History of Present Illness 72 year old inmate admitted with cough and found to have lung cancer by bronchoscopy. Was also noted to have evidence of metastasis in his liver. He is hepatitis C. He tells me about 40 years ago they told him he had Hepatitis C but didn't need treatment. He has no other issues related to his gut. Labs show positive hep c antibody Allergies Allergy/AdvReac Type Severity Reaction Status Date / Time No Known Allergies Allergy Unverified 12/03/22 11:58 Home Medications Medication Instructions Recorded Confirmed Type albuterol sulfate 90 mcg/actuation 2 puff inhalation QID PRN 12/03/22 12/03/22 History aerosol inhaler Shortness Of Breath aspirin 81 mg chewable tablet 81 mg PO DAILY 12/03/22 12/03/22 History (Children's Aspirin) atorvastatin 40 mg tablet 40 mg PO DAILY 12/03/22 12/03/22 History ciclesonide 80 mcg/actuation 1 puff inhalation BID 12/03/22 12/03/22 History aerosol inhaler (Alvesco) lisinopril 20 mg tablet 20 mg PO DAILY 12/03/22 12/03/22 History mirtazapine 45 mg tablet 45 mg PO HS 12/03/22 12/03/22 History montelukast 10 mg tablet 10 mg PO DAILY 12/03/22 12/03/22 History omeprazole 20 mg tablet,delayed 20 mg PO DAILY 12/03/22 12/03/22 History release quetiapine 100 mg tablet 100 mg PO HS 12/03/22 12/03/22 History Patient History Medical History Asthma Depression with anxiety History of alcohol abuse History of drug use History of tobacco abuse HLD (hyperlipidemia) HTN (hypertension) Surgical History Hx of cardiac cath pt states no stents were placed Family History Other Unknown family medical history Social History Smoking Status: Former smoker Hx Alcohol Use: No Hx Substance Use: No Preferred Language: Beninese Communication Ability: Effective Ecmo Specialist Required: No Beliefs That Will Affect Care: None Current Living Situation: Other Current Living Situation Comment: [facility] Feels Safe at Home: Yes Assistive Devices: None Review of Systems Review of Systems: All systems reviewed & are unremarkable except as noted in HPI & below Physical Exam Constitutional: WD/WN, vitals as above no acute distress Eyes: PERRL, conjunctivae normal, anicteric sclerae ENMT: external ear and nose normal, oropharynx normal Neck: trachea midline, no thyromegaly Respiratory: normal respiratory effort, lungs clear to auscultation Cardiovascular: RRR, no murmur, no edema Gastrointestinal (Abdomen): normal bowel sounds, soft, nontender, no hepatosplenomegaly Musculoskeletal: Extremities: no cyanosis and no clubbing Skin: no rashes, warm and dry Neurologic: PERRL, EOMI, accommodation nl, no face palsy, no dysarthria Psychiatric: Orientation: alert and oriented x 3 Results & Data Vital Signs (Past 12 Hours) Vital Signs Temp Pulse Pulse Resp BP Pulse Ox O2 Del Method 12/05/22 14:13 76 18 94 Nasal Cannula 12/05/22 12:45 Nasal Cannula 12/05/22 12:45 72 12/05/22 12:10 36.4 C L 100 H 17 110/70 91 Nasal Cannula 12/05/22 10:56 82 18 91 Nasal Cannula 12/05/22 07:42 36.5 C 85 17 120/71 92 Room Air 12/05/22 06:55 74 18 97 Nasal Cannula 12/05/22 03:36 36.4 C L 80 17 112/71 95 Nasal Cannula O2 Flow Rate 12/05/22 14:13 2 12/05/22 12:45 6 12/05/22 12:45 12/05/22 12:10 2 12/05/22 10:56 2 12/05/22 07:42 12/05/22 06:55 6 12/05/22 03:36 6 Laboratory Results 12/05/22 12/05/22 12/03/22 Range/Units 05:39 05:39 21:11 WBC 10.46 (4.8-10.8) K/ul RBC 3.72 L (4.70-6.10) M/uL Hgb 10.1 L (14.0-18.0) g/dl Hct 31.6 L (42.0-52.0) % MCV 84.9 (80.0-100.0) fL MCH 27.2 (25.0-34.0) pg MCHC 32.0 (32.0-36.0) g/dL RDW Std Deviation 42.7 (36.4-46.3) fL RDW Coeff of Abby 13.7 (11.5-14.5) % Plt Count 388 (130-400) K/uL MPV 9.0 L (9.4-12.4) fL Sodium 139 (136-145) mmol/L Potassium 3.7 (3.5-5.1) mmol/L Chloride 112 H (98-107) mmol/L Carbon Dioxide 21 (21-32) mmol/L Anion Gap 6 (3-11) BUN 12 (6-23) mg/dl Creatinine 1.09 (0.6-1.4) mg/dl Est Cr Clr Drug Dosing 62.8 ml/min Est GFR ( Amer) 78.2 ml/min Est GFR (Non-Af Amer) 67.5 ml/min BUN/Creatinine Ratio 11.0 (10-20) Glucose 138 H (70-99(Fasting)) mg/dl Calcium 8.5 L (8.6-10.3) mg/dl Hepatitis C Ab (EIA) REACTIVE A (NON-REACTIVE) Hep C Ab Signal/Cutoff >11.00 H (<1.00) Diagnostic Findings Chest CTA 12/03/22 09:43 CT ANGIOGRAPHY OF THE CHEST, PULMONARY EMBOLUS PROTOCOL CLINICAL HISTORY: Fever. COMPARISON STUDY: Chest radiograph performed earlier today. TECHNIQUE: Following IV administration of 111 mL of Optiray, helical axial images of the chest were obtained utilizing the pulmonary embolus protocol. Maximal intensity projections and sagittal and coronal reformats were viewed on an independent 3D workstation. IV contrast was administered without complication. Automated exposure control was utilized for the study. A dose lowering technique was utilized adhering to the principles of ALARA. CT DOSE: 386.04 mGy.cm FINDINGS: No pulmonary emboli are identified. There is no thoracic aortic dissection. There is a small pericardial effusion. No pneumothorax is present. There is a trace right pleural effusion. Note is made of numerous pathologically enlarged thoracic and upper abdominal lymph nodes. There are several prominent right supraclavicular lymph nodes. Index right paratracheal lymph node on image 212 of 283 measures 3.6 x 3.1 cm. Index prevascular node on image 187 measures 4 x 2 cm. Subcarinal lymph node on image 145 measures 4.1 x 3.5 cm. Gastrohepatic ligament lymph node measures 3.7 x 3.2 cm. Emphysema is noted. Several nodular airspace opacities within the right lower lobe measure up to 3.9 x 2.4 cm. There is a nodule within the medial basal segment of the right lower lobe on image 79 measures 2.2 x 1.6 cm. There are innumerable smaller nodules throughout the lungs. Nodular interlobular septal thickening is noted at this is most pronounced within the right lower lobe. There is thickening of the bronchovascular bundles. Bronchial wall thickening is noted. No suspicious lesions within the bony thorax are noted. There are numerous hypodense hepatic lesions. These measure up to approximately 2.9 cm. IMPRESSION: 1. No pulmonary emboli identified. 2. Several nodular airspace opacities within the right lower lobe with innumerable smaller nodules throughout the lungs as well as extensive thoracic and upper abdominal lymphadenopathy. The findings represent a neoplastic process and favor primary lung malignancy such as small cell carcinoma. The right lower lobe airspace opacities are likely neoplastic although a superimposed pneumonia could appear similar. 3. Interlobular septal thickening within the lungs, most pronounced within the right lower lobe. This suggests lymphangitic carcinomatosis. 4. Numerous hepatic metastases. 5. Small pericardial effusion. Trace right pleural effusion. ACT 112: Positive. There are findings on this exam that require communication between the performing entity and the patient following Patient Test Result Information Act ([place] Act 112) guidelines. Electronically signed by: Romeo Mortensen M.D. 12/03/2022 11:17 AM Abdomen Ultrasound 12/03/22 13:46 ABDOMINAL ULTRASOUND, RIGHT UPPER QUADRANT HISTORY: liver mets ? amenable to biopsy?. COMPARISON: Chest CTA 12/03/2022. FINDINGS: Pancreas: The pancreatic head and tail are obscured by overlying bowel gas. The remaining portions of the pancreas are within normal limits. Liver: Multiple targetoid masses within the liver with the largest in the right hepatic lobe measuring 2.8 cm. This is consistent with the patient's known metastatic disease. Gallbladder: No gallbladder wall thickening. No gallstones. CBD: 4 mm. Right kidney: No hydronephrosis. IMPRESSION: Multiple hepatic masses measuring up to 2.8 cm consistent with patient's known history of metastatic disease. ACT 112: Negative or not required by law. Electronically signed by: Obdulio Cotton M.D. 12/03/2022 2:49 PM Brain MRI 12/04/22 00:25 Exam(s): MRI HEAD W/WO Contrast IV Amt: 8.5cc gadavist EXAM: MR Head Without and With Intravenous Contrast CLINICAL HISTORY: Reason for exam: eval for mets. TECHNIQUE: Magnetic resonance images of the head/brain without and with intravenous contrast in multiple planes. CONTRAST: Patient received 8.5cc gadavist of IV contrast COMPARISON: No relevant prior studies available. FINDINGS: Brain: Abnormal T2 signal in the deep cerebral white matter is consistent with small vessel ischemic/degenerative changes. The cerebral and cerebellar sulci are prominent consistent with brain atrophy. No hemorrhage. Ventricles: Unremarkable. No ventriculomegaly. Bones/joints: Unremarkable. Sinuses: Unremarkable as visualized. No acute sinusitis. Mastoid air cells: Unremarkable as visualized. No mastoid effusion. Orbits: Unremarkable as visualized. IMPRESSION: No evidence to suggest intracranial metastatic disease. Electronically signed by: Rolando Woodward MD 12/04/22 01:50 AM Chest X-Ray 12/04/22 15:02 XR chest 1V portable CLINICAL HISTORY: Post Bronchoscopy COMPARISON STUDY: Chest radiograph and chest CT December 03, 2022. FINDINGS: There is no pneumothorax status post bronchoscopy. No pleural effusion is noted. Lung volumes are diminished. Interstitial thickening is again noted as well as right lower lung airspace opacity. Cardiomediastinal silhouette is grossly stable. Mediastinal lymphadenopathy is better depicted on prior CT. IMPRESSION: 1. No pneumothorax status post bronchoscopy. 2. Diffuse interstitial thickening and right lower lung airspace opacity, better depicted on prior chest CT. ACT 112: Negative or not required by law. Electronically signed by: Romeo Mortensen M.D. 12/04/2022 3:27 PM
[2022-12-05] MEDS: SODIUM CHLOR 7% 4 ML NEB NEB SCH (19:20)
[2022-12-05] MEDS: QUEtiapine FUMARATE 100 MG TABLET PO SCH (20:10)
[2022-12-05] MEDS: MONTELUKAST SODIUM 10 MG TABLET PO SCH (20:10)
[2022-12-05] MEDS: MIRTAZAPINE SOLTAB 15 MG PO SCH (20:10)
[2022-12-06 06:39] LABS: Hematocrit (blood only) 30.1 % (42.0-52.0); Hemoglobin 9.8 g/dl (14.0-18.0); Mean Corpuscular Hemoglobin 27.1 pg (25.0-34.0); Mean Corpuscular Hgb Conc 32.6 g/dL (32.0-36.0); Mean Corpuscular Volume 83.1 fL (80.0-100.0); Mean Platelet Volume 9.1 fL (9.4-12.4); Platelet Count 401 K/uL (130-400); RDW Coefficient of Variation 14.2 % (11.5-14.5); RDW Standard Deviation 43.1 fL (36.4-46.3); Red Blood Count 3.62 M/uL (4.70-6.10); White Blood Count 11.55 K/ul (4.8-10.8)
[2022-12-06] MEDS: FORMOTEROL 20 MCG/2 ML VIAL INH SCH ×2 (06:51→20:01)
[2022-12-06] MEDS: BUDESONIDE 0.25 MG/2 ML VIAL (PULMICORT) NEB SCH ×2 (06:51→20:01)
[2022-12-06] MEDS: ALBUT/IPRATROP 3MG/0.5MG NEB 3 ML VIAL NEB SCH ×4 (06:51→22:57)
[2022-12-06] MEDS: SODIUM CHLOR 7% 4 ML NEB NEB SCH ×2 (06:52→20:02)
[2022-12-06 06:55] LABS: BUN Creatinine Ratio 16.7 (10-20); Calcium 8.3 mg/dl (8.6-10.3); Creatinine Clr Calc Pharmacy 76.4 ml/min; Est GFR (African American) 98.5 ml/min; Potassium 3.7 mmol/L (3.5-5.1)
--- NOTE | 2022-12-06 07:25 | XRay Report ---
XR chest 1V portable CLINICAL HISTORY: f/u COMPARISON STUDY: Chest CT December 03, 2022. Chest radiograph December 04, 2022. FINDINGS: There is no pneumothorax or pleural effusion. Cardiomediastinal silhouette is stable. Thora cic lymphadenopathy and multiple pulmonary nodules are better depicted on recent chest CT. No consoli dation to suggest pneumonia. Interstitial thickening is unchanged. IMPRESSION: 1. Thoracic lymphadenopathy and multiple pulmonary nodules with interlobular septal thickening, juan carlos r depicted on chest CT of December 03, 2022. 2. No significant change in appearance of the chest. ACT 112: Negative or not required by law. Electronically signed by: Romeo Mortensen M.D. 12/06/2022 7:22 AM
[2022-12-06] MEDS: PIPERACILLIN/TAZOBACTAM 4.5 GM in DEXTROSE 5% 100 ML IV SCH (08:01)
[2022-12-06] MEDS: methylPREDNISolone 40 MG in SYRINGE 0 ML IV SCH ×2 (08:01→20:59)
[2022-12-06] MEDS: guaiFENesin 600 MG TABCR PO SCH ×2 (08:11→21:03)
[2022-12-06] MEDS: PANTOprazole 40 MG TAB PO SCH (08:12)
[2022-12-06] MEDS: ATORVASTATIN 40 MG TAB PO SCH (08:12)
--- NOTE | 2022-12-06 08:59 | Hospitalist Progress Note ---
Date of Service December 06, 2022 Assessment & Plan (1) Abnormal chest CT: (2) Pneumonia: (3) Hypotension: (4) Anemia: (5) HCV (hepatitis C virus): Plan This is a 72-year-old male who has a significant past medical history of HTN, HLD, depression with anxiety, asthma, history of [id number]-chos tobacco abuse, history of alcohol abuse and history of drug use who presents from [facility] secondary to cough x3 weeks. Hypotension-resolved lactic acidosis-resolved possible sepsis on admission 2/ PNA blood cultures pending, urine negative Received total of 2L of IVF in ED Change Zosyn to Augmentin/doxycycline He continues on Solumedrol 40mg IV q12 Continues on Brovana/budesonide, Incruse and hypertonic saline Continues wtih Mucinex and flutter valve Abnormal chest CT Liver masses Anemia HCV Patient with weight loss 20 lb in past month Lung nodules and liver masses suggest metastatic cancer-path pending from bronch on 12/04 Anemia multifactorial but may have to do with chronic disease Ongoing HCV infection, previously denied trt HCV RNA per GI-apprec recs. Precordial Chest pain likely MSk from cough, reproducible cardiac enzymes were trended and negative. Wandering Atrial Pacemaker pt with evidence of what appeared to be afib on tele @ 1310, RVR with hypotension now back in sinus rhythm possibly due to underlying pulmonary issue vs sepsis Discussed with cards to review tele who felt wandering atrial pacemaker, not afib will monitor mag and K to keep > 2 and 4.0, respectively HTN initially held lisinopril 2/2 hypotension Cont holding at this time with BP normal to low HLD continue statin Asthma, no acute exac duonebs hold home inhaler Hx of tobacco abuse Hx of alcohol abuse Hx of Drug use with cocaine and marijuana Pt confirms he is a DNR/DNI but does state at this point he would wish to pursue treatment of cancer depending on prognosis. Dispo: transfer to medical [facility] Admission and Anticipated Discharge Date Admission Date: December 03, 2022 Subjective 72-year-old incarcerated male presented with 3 weeks of excessive coughing. He reports being treated with 5 days of antibiotic that did not improve his symptoms while in the present. He was told at that time he had pneumonia. still feels that his breathing is poor still is coughing denies fever feels the breathing treatments are helping. He continues on Solumedrol 40mg IV q12 Continues on Brovana/budesonide, Incruse and hypertonic saline Continues wtih Mucinex and flutter valve s/p EBUS on 12/04 and still awaiting pathology results. Review of Systems Review of Systems: All systems reviewed negative except as indicated above. Physical Exam Physical Exam: CONSTITUTIONAL: WNWD, vitals as above, generally well-appearing, NAD EYES: normal conjunctivae, no scleral icterus ENT: external ear and nose normal, 91% on 6 LPM NECK: trachea midline RESPIRATORY: coarse rhonchi on right base area, no rales or wheezes, normal respiratory effort CARDIOVASCULAR: regular rate and rhythm, S1 and 2 heard without murmurs, gallops or rubs, no JVD, no peripheral edema CHEST: inspection of chest was normal GASTROINTESTINAL: soft, nontender, ND, no guarding MUSCULOSKELETAL: strength 5/5 throughout, head is normocephalic and atraumatic SKIN: warm and dry NEUROLOGIC: CN 2-12 grossly intact, no sensory deficit, normal cognition, normal speech, no tremor PSYCHIATRIC: alert cooperative and oriented to person, place and time. Results & Data Results & Data Vital Signs (Past 12 Hours) Vital Signs Temp Pulse Pulse Resp BP Pulse Ox O2 Del Method 12/06/22 07:59 36.4 C L 76 21 117/73 90 Nasal Cannula 12/06/22 07:34 81 12/06/22 06:51 71 18 94 Nasal Cannula 12/06/22 03:26 36.8 C 70 18 116/72 93 Nasal Cannula 12/05/22 21:56 68 12/05/22 22:49 36.5 C 70 18 104/67 93 Nasal Cannula O2 Flow Rate 12/06/22 07:59 2 12/06/22 07:34 12/06/22 06:51 2 12/06/22 03:26 2 12/05/22 21:56 12/05/22 22:49 2 Laboratory Results Short CBC 12/06/22 Range/Units 06:15 WBC 11.55 H (4.8-10.8) K/ul Hgb 9.8 L (14.0-18.0) g/dl Hct 30.1 L (42.0-52.0) % Plt Count 401 H (130-400) K/uL BMP 12/06/22 06:15 Sodium 140 Potassium 3.7 Chloride 109 H Carbon Dioxide 24 BUN 15 Creatinine 0.90 Glucose 110 H Calcium 8.3 L Diagnostic Findings Chest X-Ray 12/06/22 07:00 XR chest 1V portable CLINICAL HISTORY: f/u COMPARISON STUDY: Chest CT December 03, 2022. Chest radiograph December 04, 2022. FINDINGS: There is no pneumothorax or pleural effusion. Cardiomediastinal silhouette is stable. Thoracic lymphadenopathy and multiple pulmonary nodules are better depicted on recent chest CT. No consolidation to suggest pneumonia. Interstitial thickening is unchanged. IMPRESSION: 1. Thoracic lymphadenopathy and multiple pulmonary nodules with interlobular septal thickening, better depicted on chest CT of December 03, 2022. 2. No significant change in appearance of the chest. ACT 112: Negative or not required by law. Electronically signed by: Romoe Mortensen M.D. 12/06/2022 7:22 AM Medications Administered Current Inpatient Medications Acetaminophen (Acetaminophen 325 Mg Tab) 650 mg PO Q4H PRN PRN Reason: Pain or Fever Stop: 01/02/23 15:16 Al Hydrox/Mg Hydrox/Simethicone (Aluminum/Magnesium Susp 30 Ml Udc) 15 ml PO Q4H PRN PRN Reason: Dyspepsia Stop: 01/02/23 15:16 Albuterol (Albut/Ipratrop 3mg/0.5mg Neb 3 Ml Vial) 3 ml NEB QIDR [facility]; Protocol Stop: 01/02/23 15:16 Last Admin: 12/06/22 06:51 Dose: Not Given Atorvastatin Calcium (Atorvastatin 40 Mg Tab) 40 mg PO DAILY [facility] Stop: 01/03/23 08:59 Last Admin: 12/06/22 08:12 Dose: 40 mg Budesonide (Budesonide 0.25 Mg/2 Ml Vial (Pulmicort)) 0.25 mg NEB BIDR [facility] Stop: 01/02/23 18:59 Last Admin: 12/06/22 06:51 Dose: 0.25 mg Formoterol Fumarate (Formoterol 20 Mcg/2 Ml Vial) 20 mcg INH BIDR [facility] Stop: 01/02/23 18:59 Last Admin: 12/06/22 06:51 Dose: 20 mcg Guaifenesin (Guaifenesin 600 Mg Tabcr) 600 mg PO Q12 [facility] Stop: 01/02/23 20:59 Last Admin: 12/06/22 08:11 Dose: 600 mg Guaifenesin/Codeine Phosphate (Guaifenesin/Codeine 200mg/20mg 10ml Udc) 10 ml PO Q6H PRN PRN Reason: Cough Stop: 01/03/23 18:27 Last Admin: 12/04/22 19:47 Dose: 10 ml Piperacillin Sod/Tazobactam (Sod 4.5 gm/ Dextrose) 120 mls @ 30 mls/hr IV Q8H [facility]; Protocol Stop: 12/10/22 19:59 Last Admin: 12/06/22 08:01 Dose: 30 mls/hr Methylprednisolone 40 mg/ (Syringe) 0.64 mls @ 1.5 mls/min IV Q12 [facility] Stop: 01/04/23 12:49 Last Admin: 12/06/22 08:01 Dose: 1.5 mls/min Magnesium Hydroxide (Magnesium Hydroxide Susp 30 Ml Udc) 30 ml PO Q12H PRN PRN Reason: Constipation Stop: 01/02/23 15:16 Mirtazapine (Mirtazapine Soltab 15 Mg) 45 mg PO [facility] Stop: 01/02/23 20:59 Last Admin: 12/05/22 20:10 Dose: 45 mg Montelukast Sodium (Montelukast Sodium 10 Mg Tablet) 10 mg PO HS [facility] Stop: 01/03/23 20:59 Last Admin: 12/05/22 20:10 Dose: 10 mg Ondansetron HCl (Ondansetron Inj 2 Mg/Ml 2 Ml Vial) 4 mg IV Q6H PRN PRN Reason: Nausea Stop: 01/02/23 15:16 Pantoprazole Sodium (Pantoprazole 40 Mg Tab) 40 mg PO DAILY [facility] Stop: 01/03/23 08:59 Last Admin: 12/06/22 08:12 Dose: 40 mg Polyethylene Glycol (Polyethylene (Miralax) 17 Gm Pack) 17 gm PO DAILY PRN PRN Reason: Constipation Stop: 01/02/23 15:16 Quetiapine Fumarate (Quetiapine Fumarate 100 Mg Tablet) 100 mg PO [facility] Stop: 01/02/23 20:59 Last Admin: 12/05/22 20:10 Dose: 100 mg Sodium Chloride (Sodium Chlor 7% 4 Ml Neb) 4 ml NEB BIDR [facility] Stop: 01/04/23 18:59 Last Admin: 12/06/22 06:52 Dose: 4 ml
--- NOTE | 2022-12-06 09:37 | Pulmonology Progress Note ---
Date of Service December 06, 2022 Assessment & Plan (1) Abnormal chest CT: (2) LAD (lymphadenopathy), mediastinal: (3) Pneumonia: Laterality: right Lung location: unspecified part of lung Pneumonia type: due to unspecified organism Qualified Code(s): J18.9 - Pneumonia, unspecified organism (4) SOB (shortness of breath): (5) COPD (chronic obstructive pulmonary disease): (6) Peripheral eosinophilia: Plan CT chest 12/03/2022 personally reviewed: Centrilobular and paraseptal emphysema appreciated bilaterally Right lower lobe 2.2 x 1.6 cm nodularity close to the mediastinum/esophagus, another 3.9 x 2.4 cm right lower lobe posterior nodularity Significant mediastinal lymphadenopathy, especially station 7 2D echo 12/04/2022: EF 60-65%, mild concentric LVH, RV normal in size and function , grade 1 diastolic dysfunction -- Abnormal chest CT with mediastinal lymphadenopathy and pulmonary nodules Likely representing cancer Seems to be primary lung Respiratory bio fire negative for everything including COVID-19, influenza A/B Procalcitonin 0.17 Platelets 393 MRI brain 12/04/2022 negative for intracranial mets S/p EBUS 12/04/2022, follow-up cytology and pathology -- COPD with emphysema On Alvesco and montelukast We will put him on budesonide and Perforomist nebulized while in the hospital --Eosinophilia Absolute eosinophil count 910 Plan: Chest x-ray from today shows improvement in the interstitial marking bilateral lower lobes. Hilar enlargement especially on the right side persists C/w Solu-Medrol 40 mg every 12 Continue with Brovana/budesonide, Incruse and hypertonic saline. Continue with Mucinex and flutter valve O2 supplementation to keep oxygen saturation between 88-92% Please note the above document was generated using voice recognition software. It may contain grammatical, syntax or spelling errors.Any formal questions or concerns about the content, text or information contained within the body of this dictation should be directly addressed to the provider for clarification. Admission and Anticipated Discharge Date Admission Date: December 03, 2022 Subjective Patient seen and examined at bedside. No acute distress, no adverse events overnight He was saturating 92 L on 2 L nasal cannula He says overall he is feeling better Has been bringing up phlegm with the help of flutter valve. Denies any hemoptysis Still complaining of chest pain on inspiration No nausea vomiting Fair appetite Review of Systems Review of Systems: All systems reviewed & are unremarkable except as noted in Subjective Physical Exam Physical Exam: Constitutional: No acute distress HEENT: EOMI, PERRLA Respiratory system: Decreased air entry bilaterally, no rhonchi, positive expiratory wheeze, positive crackles bilateral lower lobes more on the right CVS: S1-S2 positive, no murmurs or gallops Abdomen: Soft, nontender, nondistended, positive bowel sounds x4 Extremities: +2 pulses bilaterally radialis/ dorsalis pedis, no cyanosis, no edema, positive clubbing Neuro: Awake alert oriented x3 Psych: Normal mood and affect G/U: No Brewer Skin: no rashes, warm and dry Lymphatic: no cervical or axillary lymphadenopathy Results & Data Results & Data Vital Signs (Past 12 Hours) Vital Signs Temp Pulse Pulse Resp BP Pulse Ox O2 Del Method 12/06/22 07:59 36.4 C L 76 21 117/73 90 Nasal Cannula 12/06/22 07:34 81 12/06/22 06:51 71 18 94 Nasal Cannula 12/06/22 03:26 36.8 C 70 18 116/72 93 Nasal Cannula 12/05/22 21:56 68 12/05/22 22:49 36.5 C 70 18 104/67 93 Nasal Cannula O2 Flow Rate 12/06/22 07:59 2 12/06/22 07:34 12/06/22 06:51 2 12/06/22 03:26 2 12/05/22 21:56 12/05/22 22:49 2 Laboratory Results 12/06/22 06:15 12/06/22 06:15 PG Care Time/CCT Total # of Minutes Spent Total Time Spent with Patient: Total time spent is greater than 50% in coordination of care (as documented) at patient's floor/unit and/or counseling patient: Coding Level of Care Code 34351 SUB INP/OBS CARE 2/35MIN Diagnoses Abnormal chest CT R93.89 LAD (lymphadenopathy), mediastinal R59.0 Pneumonia J18.9 Laterality: right Lung location: unspecified part of lung Pneumonia type: due to unspecified organism SOB (shortness of breath) R06.02 COPD (chronic obstructive pulmonary disease) J44.9 Peripheral eosinophilia D72.19
[2022-12-06] MEDS: UMECLIDINIUM BROMIDE 62.5MCG/BLISTER 7 PUFFS/INHALER INH SCH (12:11)
[2022-12-06] MEDS: AMOXICILLIN/CLAVULANATE 875 MG TAB PO SCH (16:58)
[2022-12-06] MEDS: ACETAMINOPHEN 325 MG TAB PO PRN (21:00)
[2022-12-06] MEDS: MONTELUKAST SODIUM 10 MG TABLET PO SCH (21:00)
[2022-12-06] MEDS: QUEtiapine FUMARATE 100 MG TABLET PO SCH (21:01)
[2022-12-06] MEDS: DOXYCYCLINE HYCLATE 100 MG CAP PO SCH (21:01)
[2022-12-06] MEDS: MIRTAZAPINE SOLTAB 15 MG PO SCH (21:02)
[2022-12-07] MEDS: ACETAMINOPHEN 325 MG TAB PO PRN ×3 (07:21→20:48)
[2022-12-07] MEDS: ALBUT/IPRATROP 3MG/0.5MG NEB 3 ML VIAL NEB SCH ×3 (07:27→23:24)
[2022-12-07] MEDS: BUDESONIDE 0.25 MG/2 ML VIAL (PULMICORT) NEB SCH ×2 (07:27→19:08)
[2022-12-07] MEDS: FORMOTEROL 20 MCG/2 ML VIAL INH SCH ×2 (07:27→19:08)
[2022-12-07] MEDS: SODIUM CHLOR 7% 4 ML NEB NEB SCH ×2 (07:27→19:08)
[2022-12-07] MEDS: PANTOprazole 40 MG TAB PO SCH (08:28)
[2022-12-07] MEDS: DOXYCYCLINE HYCLATE 100 MG CAP PO SCH ×2 (08:28→20:47)
[2022-12-07] MEDS: AMOXICILLIN/CLAVULANATE 875 MG TAB PO SCH ×2 (08:28→16:44)
[2022-12-07] MEDS: guaiFENesin 600 MG TABCR PO SCH ×2 (08:28→20:49)
[2022-12-07] MEDS: methylPREDNISolone 40 MG in SYRINGE 0 ML IV SCH (08:29)
[2022-12-07] MEDS: ATORVASTATIN 40 MG TAB PO SCH (08:29)
[2022-12-07] MEDS: UMECLIDINIUM BROMIDE 62.5MCG/BLISTER 7 PUFFS/INHALER INH SCH (08:30)
--- NOTE | 2022-12-07 09:45 | Hospitalist Progress Note ---
Date of Service December 07, 2022 Assessment & Plan (1) Abnormal chest CT: (2) Pneumonia: (3) Hypotension: (4) Anemia: (5) HCV (hepatitis C virus): Plan This is a 72-year-old male who has a significant past medical history of HTN, HLD, depression with anxiety, asthma, history of [id number]-ghld tobacco abuse, history of alcohol abuse and history of drug use who presents from [facility] secondary to cough x3 weeks. Hypotension-resolved lactic acidosis-resolved possible sepsis on admission 2/2 PNA blood cultures pending, urine negative Received total of 2L of IVF in ED Change Zosyn to Augmentin/doxycycline He continues on Solumedrol Continues on Brovana/budesonide, Incruse and hypertonic saline Continues wtih Mucinex and flutter valve Abnormal chest CT Liver masses Anemia HCV Patient with weight loss 20 lb in past month Lung nodules and liver masses suggest metastatic cancer-path pending from bronch on 12/04 Anemia multifactorial but may have to do with chronic disease Ongoing HCV infection, previously denied trt HCV RNA per GI-apprec recs. Precordial Chest pain likely MSK from cough, reproducible cardiac enzymes were trended and negative. Wandering Atrial Pacemaker pt with evidence of what appeared to be afib on tele @ 1310, RVR with hypotension now back in sinus rhythm possibly due to underlying pulmonary issue vs sepsis Discussed with cards to review tele who felt wandering atrial pacemaker, not afib will monitor mag and K to keep > 2 and 4.0, respectively HTN initially held lisinopril 2/2 hypotension Cont holding at this time with BP normal to low HLD continue statin Asthma, no acute exac duonebs hold home inhaler Hx of tobacco abuse Hx of alcohol abuse Hx of Drug use with cocaine and marijuana Pt confirms he is a DNR/DNI but does state at this point he would wish to pursue treatment of cancer depending on prognosis. Dispo: transfer to medical PCP: Fidelina Chacon DO [facility] Hospitalist Admission and Anticipated Discharge Date Admission Date: December 03, 2022 Subjective 72-year-old incarcerated male presented with 3 weeks of excessive coughing. He reports being treated with 5 days of antibiotic that did not improve his symptoms while in the present. He was told at that time he had pneumonia. Finally starting to turn around with his symptoms Expresses anxiety about waiting on the pathology pending Denies cough, SOB Still requiring small amount of oxygen Review of Systems Review of Systems: All systems reviewed negative except as indicated above. Physical Exam Physical Exam: CONSTITUTIONAL: WNWD, vitals as above, generally well-appearing, NAD EYES: normal conjunctivae, no scleral icterus ENT: external ear and nose normal, 94% on 1 LPM NECK: trachea midline RESPIRATORY: CTA throughout, no wheezing, rales or rhonchi. Normal respiratory effort. CARDIOVASCULAR: regular rate and rhythm, S1 and 2 heard without murmurs, gallops or rubs, no JVD, no peripheral edema CHEST: inspection of chest was normal GASTROINTESTINAL: soft, nontender, ND, no guarding MUSCULOSKELETAL: strength 5/5 throughout, head is normocephalic and atraumatic SKIN: warm and dry NEUROLOGIC: CN 2-12 grossly intact, no sensory deficit, normal cognition, normal speech, no tremor PSYCHIATRIC: alert cooperative and oriented to person, place and time. Results & Data Results & Data Vital Signs (Past 12 Hours) Vital Signs Temp Pulse Resp BP Pulse Ox O2 Del Method O2 Flow Rate 12/07/22 07:46 36.3 C L 60 16 126/77 99 Nasal Cannula 2 12/07/22 07:43 Room Air 12/07/22 07:27 64 18 94 Nasal Cannula 2 12/06/22 22:57 18 93 Nasal Cannula 1 Medications Administered Current Inpatient Medications Acetaminophen (Acetaminophen 325 Mg Tab) 650 mg PO Q4H PRN PRN Reason: Pain or Fever Stop: 01/02/23 15:16 Last Admin: 12/07/22 07:21 Dose: 650 mg Al Hydrox/Mg Hydrox/Simethicone (Aluminum/Magnesium Susp 30 Ml Udc) 15 ml PO Q4H PRN PRN Reason: Dyspepsia Stop: 01/02/23 15:16 Albuterol (Albut/Ipratrop 3mg/0.5mg Neb 3 Ml Vial) 3 ml NEB Q8R [facility]; Protocol Stop: 01/05/23 14:59 Last Admin: 12/07/22 07:27 Dose: Not Given Amoxicillin/Clavulanate Potassium (Amoxicillin/Clavulanate 875 Mg Tab) 1 tab PO BIDM [facility] Stop: 12/13/22 16:59 Last Admin: 12/07/22 08:28 Dose: 1 tab Atorvastatin Calcium (Atorvastatin 40 Mg Tab) 40 mg PO DAILY [facility] Stop: 01/03/23 08:59 Last Admin: 12/07/22 08:29 Dose: 40 mg Budesonide (Budesonide 0.25 Mg/2 Ml Vial (Pulmicort)) 0.25 mg NEB BIDR [facility] Stop: 01/02/23 18:59 Last Admin: 12/07/22 07:27 Dose: 0.25 mg Doxycycline Hyclate (Doxycycline Hyclate 100 Mg Cap) 100 mg PO BID [facility] Stop: 12/13/22 20:59 Last Admin: 12/07/22 08:28 Dose: 100 mg Formoterol Fumarate (Formoterol 20 Mcg/2 Ml Vial) 20 mcg INH BIDR [facility] Stop: 01/02/23 18:59 Last Admin: 12/07/22 07:27 Dose: 20 mcg Guaifenesin (Guaifenesin 600 Mg Tabcr) 600 mg PO Q12 [facility] Stop: 01/02/23 20:59 Last Admin: 12/07/22 08:28 Dose: 600 mg Guaifenesin/Codeine Phosphate (Guaifenesin/Codeine 200mg/20mg 10ml Udc) 10 ml PO Q6H PRN PRN Reason: Cough Stop: 01/03/23 18:27 Last Admin: 12/07/22 06:03 Dose: 10 ml Methylprednisolone 40 mg/ (Syringe) 0.64 mls @ 1.5 mls/min IV Q12 [facility] Stop: 01/04/23 12:49 Last Admin: 12/07/22 08:29 Dose: 1.5 mls/min Magnesium Hydroxide (Magnesium Hydroxide Susp 30 Ml Udc) 30 ml PO Q12H PRN PRN Reason: Constipation Stop: 01/02/23 15:16 Mirtazapine (Mirtazapine Soltab 15 Mg) 45 mg PO HS [facility] Stop: 01/02/23 20:59 Last Admin: 12/06/22 21:02 Dose: 45 mg Montelukast Sodium (Montelukast Sodium 10 Mg Tablet) 10 mg PO HS [facility] Stop: 01/03/23 20:59 Last Admin: 12/06/22 21:00 Dose: 10 mg Ondansetron HCl (Ondansetron Inj 2 Mg/Ml 2 Ml Vial) 4 mg IV Q6H PRN PRN Reason: Nausea Stop: 01/02/23 15:16 Pantoprazole Sodium (Pantoprazole 40 Mg Tab) 40 mg PO DAILY [facility] Stop: 01/03/23 08:59 Last Admin: 12/07/22 08:28 Dose: 40 mg Polyethylene Glycol (Polyethylene (Miralax) 17 Gm Pack) 17 gm PO DAILY PRN PRN Reason: Constipation Stop: 01/02/23 15:16 Quetiapine Fumarate (Quetiapine Fumarate 100 Mg Tablet) 100 mg PO HS [facility] Stop: 01/02/23 20:59 Last Admin: 12/06/22 21:01 Dose: 100 mg Sodium Chloride (Sodium Chlor 7% 4 Ml Neb) 4 ml NEB BIDR [facility] Stop: 01/04/23 18:59 Last Admin: 12/07/22 07:27 Dose: 4 ml Umeclidinium [place] (Umeclidinium [place] 62.5mcg/Blister 7 Puffs/Inhaler) 1 puffs INH DAILY [facility] Stop: 01/05/23 10:59 Last Admin: 12/07/22 08:30 Dose: 1 puffs
--- NOTE | 2022-12-07 12:45 | Pulmonology Progress Note ---
Date of Service December 07, 2022 Assessment & Plan (1) Abnormal chest CT: (2) LAD (lymphadenopathy), mediastinal: (3) Pneumonia: Laterality: right Lung location: unspecified part of lung Pneumonia type: due to unspecified organism Qualified Code(s): J18.9 - Pneumonia, unspecified organism (4) SOB (shortness of breath): (5) COPD (chronic obstructive pulmonary disease): (6) Peripheral eosinophilia: Plan CT chest 12/03/2022 personally reviewed: Centrilobular and paraseptal emphysema appreciated bilaterally Right lower lobe 2.2 x 1.6 cm nodularity close to the mediastinum/esophagus, another 3.9 x 2.4 cm right lower lobe posterior nodularity Significant mediastinal lymphadenopathy, especially station 7 2D echo 12/04/2022: EF 60-65%, mild concentric LVH, RV normal in size and function , grade 1 diastolic dysfunction -- Abnormal chest CT with mediastinal lymphadenopathy and pulmonary nodules Likely representing cancer Seems to be primary lung Respiratory bio fire negative for everything including COVID-19, influenza A/B Procalcitonin 0.17 Platelets 393 MRI brain 12/04/2022 negative for intracranial mets S/p EBUS 12/04/2022, follow-up cytology and pathology -- COPD with emphysema On Alvesco and montelukast We will put him on budesonide and Perforomist nebulized while in the hospital --Eosinophilia Absolute eosinophil count 910 Plan: Decrease Solu-Medrol to 40 mg once a day Continue with Brovana/budesonide, Incruse and hypertonic saline. Continue with Mucinex and flutter valve O2 supplementation to keep oxygen saturation between 88-92% Please note the above document was generated using voice recognition software. It may contain grammatical, syntax or spelling errors.Any formal questions or concerns about the content, text or information contained within the body of this dictation should be directly addressed to the provider for clarification. Admission and Anticipated Discharge Date Admission Date: December 03, 2022 Subjective Patient seen and examined at bedside. No acute distress, no adverse events overnight Overall he says he is feeling better Has been bringing up phlegm Still complains of pleuritic chest pain when he takes deep breath in and when he coughs No nausea vomiting Appetite is fair Was saturating 93% on 1 and half liters, I went down to half a liter. Review of Systems Review of Systems: All systems reviewed & are unremarkable except as noted in Subjective Physical Exam Physical Exam: Constitutional: No acute distress HEENT: EOMI, PERRLA Respiratory system: Decreased air entry bilaterally, no rhonchi, positive expiratory wheeze, positive crackles bilateral lower lobes more on the right CVS: S1-S2 positive, no murmurs or gallops Abdomen: Soft, nontender, nondistended, positive bowel sounds x4 Extremities: +2 pulses bilaterally radialis/ dorsalis pedis, no cyanosis, no edema, positive clubbing Neuro: Awake alert oriented x3 Psych: Normal mood and affect G/U: No Brewer Skin: no rashes, warm and dry Lymphatic: no cervical or axillary lymphadenopathy Results & Data Results & Data Vital Signs (Past 12 Hours) Vital Signs Temp Pulse Resp BP Pulse Ox O2 Del Method O2 Flow Rate 12/07/22 07:46 36.3 C L 60 16 126/77 99 Nasal Cannula 2 12/07/22 07:43 Room Air 12/07/22 07:27 64 18 94 Nasal Cannula 2 Laboratory Results 12/06/22 06:15 12/06/22 06:15 PG Care Time/CCT Total # of Minutes Spent Total Time Spent with Patient: Total time spent is greater than 50% in coordination of care (as documented) at patient's floor/unit and/or counseling patient: Coding Level of Care Code 28862 SUB INP/OBS CARE 2/35MIN Diagnoses Abnormal chest CT R93.89 LAD (lymphadenopathy), mediastinal R59.0 Pneumonia J18.9 Laterality: right Lung location: unspecified part of lung Pneumonia type: due to unspecified organism SOB (shortness of breath) R06.02 COPD (chronic obstructive pulmonary disease) J44.9 Peripheral eosinophilia D72.19
[2022-12-07] MEDS: QUEtiapine FUMARATE 100 MG TABLET PO SCH (20:48)
[2022-12-07] MEDS: MONTELUKAST SODIUM 10 MG TABLET PO SCH (20:48)
[2022-12-07] MEDS: MIRTAZAPINE SOLTAB 15 MG PO SCH (20:49)
[2022-12-08] MEDS: FORMOTEROL 20 MCG/2 ML VIAL INH SCH ×2 (07:27→19:47)
[2022-12-08] MEDS: ALBUT/IPRATROP 3MG/0.5MG NEB 3 ML VIAL NEB SCH ×3 (07:28→22:53)
[2022-12-08] MEDS: SODIUM CHLOR 7% 4 ML NEB NEB SCH ×2 (07:28→19:47)
[2022-12-08] MEDS: BUDESONIDE 0.25 MG/2 ML VIAL (PULMICORT) NEB SCH ×2 (07:28→19:47)
[2022-12-08] MEDS: ACETAMINOPHEN 325 MG TAB PO PRN ×2 (07:41→17:04)
[2022-12-08] MEDS: POLYETHYLENE (MIRALAX) 17 GM PACK PO PRN (07:41)
[2022-12-08 07:52] LABS: Hematocrit (blood only) 34.6 % (42.0-52.0); Hemoglobin 11.1 g/dl (14.0-18.0); Mean Corpuscular Hemoglobin 26.9 pg (25.0-34.0); Mean Corpuscular Hgb Conc 32.1 g/dL (32.0-36.0); Mean Platelet Volume 9.4 fL (9.4-12.4); Nucleated RBC # (auto) 0.02 K/uL (0-0.12); Nucleated RBC % (auto) 0.2 %; Platelet Count 410 K/uL (130-400); RDW Standard Deviation 42.4 fL (36.4-46.3); Red Blood Count 4.12 M/uL (4.70-6.10); White Blood Count 10.25 K/ul (4.8-10.8)
--- NOTE | 2022-12-08 07:59 | Pulmonology Progress Note ---
Date of Service December 08, 2022 Assessment & Plan (1) Abnormal chest CT: (2) LAD (lymphadenopathy), mediastinal: (3) Pneumonia: Laterality: right Lung location: unspecified part of lung Pneumonia type: due to unspecified organism Qualified Code(s): J18.9 - Pneumonia, unspecified organism (4) SOB (shortness of breath): (5) COPD (chronic obstructive pulmonary disease): (6) Peripheral eosinophilia: Plan CT chest 12/03/2022 personally reviewed: Centrilobular and paraseptal emphysema appreciated bilaterally Right lower lobe 2.2 x 1.6 cm nodularity close to the mediastinum/esophagus, another 3.9 x 2.4 cm right lower lobe posterior nodularity Significant mediastinal lymphadenopathy, especially station 7 2D echo 12/04/2022: EF 60-65%, mild concentric LVH, RV normal in size and function , grade 1 diastolic dysfunction -- Abnormal chest CT with mediastinal lymphadenopathy and pulmonary nodules Likely representing cancer Seems to be primary lung Respiratory bio fire negative for everything including COVID-19, influenza A/B Procalcitonin 0.17 Platelets 393 MRI brain 12/04/2022 negative for intracranial mets S/p EBUS 12/04/2022, follow-up cytology and pathology -- COPD with emphysema On Alvesco and montelukast We will put him on budesonide and Perforomist nebulized while in the hospital --Eosinophilia Absolute eosinophil count 910 Plan: Continue with Solu-Medrol to 40 mg once a day. Can consider transitioning to p.o. prednisone as of tomorrow 40 mg for 3 days followed by 20 mg for 3 days Continue with Brovana/budesonide, Incruse and hypertonic saline. Continue with Mucinex and flutter valve Await cytology report On discharge would recommend Trelegy 200 inhaler once a day O2 supplementation to keep oxygen saturation between 88-92% Please note the above document was generated using voice recognition software. It may contain grammatical, syntax or spelling errors.Any formal questions or concerns about the content, text or information contained within the body of this dictation should be directly addressed to the provider for clarification. Admission and Anticipated Discharge Date Admission Date: December 03, 2022 Subjective Patient seen and examined at bedside. No acute distress, no adverse events overnight He was saturating 92% on 1 L nasal cannula. He has been coughing and bringing up phlegm. Chest pain has decreased in intensity. Still there especially on the right lower side Denies any nausea vomiting Fair appetite Review of Systems Review of Systems: All systems reviewed & are unremarkable except as noted in Subjective Physical Exam Physical Exam: Constitutional: No acute distress HEENT: EOMI, PERRLA Respiratory system: Decreased air entry bilaterally, no rhonchi, positive expiratory wheeze, more in the right, positive crackles bilateral lower lobes more on the right CVS: S1-S2 positive, no murmurs or gallops Abdomen: Soft, nontender, nondistended, positive bowel sounds x4 Extremities: +2 pulses bilaterally radialis/ dorsalis pedis, no cyanosis, no edema, positive clubbing Neuro: Awake alert oriented x3 Psych: Normal mood and affect G/U: No Brewer Skin: no rashes, warm and dry Lymphatic: no cervical or axillary lymphadenopathy Results & Data Results & Data Vital Signs (Past 12 Hours) Vital Signs Temp Pulse Resp BP Pulse Ox O2 Del Method O2 Flow Rate 12/08/22 07:50 Nasal Cannula 1 12/08/22 07:45 36.5 C 90 18 158/89 H 94 Nasal Cannula 1 12/08/22 07:29 76 18 91 Nasal Cannula 1 12/07/22 23:25 67 18 91 Room Air 12/07/22 22:36 36.8 C 66 18 123/71 93 Nasal Cannula 2 Laboratory Results 12/08/22 06:37 PG Care Time/CCT Total # of Minutes Spent Total Time Spent with Patient: Total time spent is greater than 50% in coordination of care (as documented) at patient's floor/unit and/or counseling patient: Coding Level of Care Code 31315 SUB INP/OBS CARE 2/35MIN Diagnoses Abnormal chest CT R93.89 LAD (lymphadenopathy), mediastinal R59.0 Pneumonia J18.9 Laterality: right Lung location: unspecified part of lung Pneumonia type: due to unspecified organism SOB (shortness of breath) R06.02 COPD (chronic obstructive pulmonary disease) J44.9 Peripheral eosinophilia D72.19
[2022-12-08 08:10] LABS: Ferritin 88.2 ng/ml (8-388)
[2022-12-08] MEDS: UMECLIDINIUM BROMIDE 62.5MCG/BLISTER 7 PUFFS/INHALER INH SCH (08:45)
[2022-12-08] MEDS: DOXYCYCLINE HYCLATE 100 MG CAP PO SCH ×2 (08:46→21:58)
[2022-12-08] MEDS: ATORVASTATIN 40 MG TAB PO SCH (08:46)
--- NOTE | 2022-12-08 08:46 | Hospitalist Progress Note ---
Date of Service December 08, 2022 Assessment & Plan (1) Abnormal chest CT: (2) Pneumonia: (3) Hypotension: (4) Anemia: (5) HCV (hepatitis C virus): Plan This is a 72-year-old male who has a significant past medical history of HTN, HLD, depression with anxiety, asthma, history of [id number] tobacco abuse, history of alcohol abuse and history of drug use who presents from [facility] secondary to cough x3 weeks. Hypotension-resolved lactic acidosis-resolved possible sepsis on admission / PNA blood cultures pending, urine negative Received total of 2L of IVF in ED Change Zosyn to Augmentin/doxycycline He continues on Solumedrol-->change to short prednisone taper tomorrow. Continues on Brovana/budesonide, Incruse and hypertonic saline Continues wtih Mucinex and flutter valve Trelegy inhaler on discharge per pulm Abnormal chest CT Liver masses Anemia HCV Patient with weight loss 20 lb in past month Lung nodules and liver masses suggest metastatic cancer-path pending from bronch on 12/04 Anemia multifactorial but may have to do with chronic disease Per HCV workup, there is no evidence of active infection and alpha-fetoprotein is within normal limits. Precordial Chest pain-resolved likely MSK from cough, reproducible cardiac enzymes were trended and negative. Wandering Atrial Pacemaker pt with evidence of what appeared to be afib on tele @ 1310, RVR with hypotensio n now back in sinus rhythm possibly due to underlying pulmonary issue vs sepsis Discussed with cards to review tele who felt wandering atrial pacemaker, not afib will monitor mag and K to keep > 2 and 4.0, respectively HTN initially held lisinopril 2/2 hypotension Cont holding at this time with BP normal to low HLD continue statin Asthma, no acute exac duonebs hold home inhaler Hx of tobacco abuse Hx of alcohol abuse Hx of Drug use with cocaine and marijuana Pt confirms he is a DNR/DNI but does state at this point he would wish to pursue treatment of cancer depending on prognosis. Dispo: discharge to shelter tomorrow. Pt was hoping to know LN biopsy results prior to discharge as pathology is still pending. PCP: [facility] Hospital[facility] Admission and Anticipated Discharge Date Admission Date: December 03, 2022 Subjective 72-year-old incarcerated male presented with 3 weeks of excessive coughing. He reports being treated with 5 days of antibiotic that did not improve his symptoms while in the present. He was told at that time he had pneumonia. Respiratory symptoms are stable/improving Expectorating "junk" today Expresses anxiety about waiting on the pathology pending Still requiring small amount of oxygen Review of Systems Review of Systems: All systems reviewed negative except as indicated above. Physical Exam Physical Exam: CONSTITUTIONAL: WNWD, vitals as above, generally well-appearing, NAD EYES: normal conjunctivae, no scleral icterus ENT: external ear and nose normal, 92% on 1 LPM NECK: trachea midline RESPIRATORY: CTA throughout, no wheezing, rales or rhonchi. Normal respiratory effort. CARDIOVASCULAR: regular rate and rhythm, S1 and 2 heard without murmurs, gallops or rubs, no JVD, no peripheral edema CHEST: inspection of chest was normal GASTROINTESTINAL: soft, nontender, ND, no guarding MUSCULOSKELETAL: strength 5/5 throughout, head is normocephalic and atraumatic SKIN: warm and dry NEUROLOGIC: CN 2-12 grossly intact, no sensory deficit, normal cognition, normal speech, no tremor PSYCHIATRIC: alert cooperative and oriented to person, place and time. Results & Data Results & Data Vital Signs (Past 12 Hours) Vital Signs Temp Pulse Resp BP Pulse Ox O2 Del Method O2 Flow Rate 12/08/22 07:50 Nasal Cannula 1 12/08/22 07:45 36.5 C 90 18 158/89 H 94 Nasal Cannula 1 12/08/22 07:29 76 18 91 Nasal Cannula 1 12/07/22 23:25 67 18 91 Room Air 12/07/22 22:36 36.8 C 66 18 123/71 93 Nasal Cannula 2 Laboratory Results Short CBC 12/08/22 Range/Units 06:37 WBC 10.25 (4.8-10.8) K/ul Hgb 11.1 L (14.0-18.0) g/dl Hct 34.6 L (42.0-52.0) % Plt Count 410 H (130-400) K/uL Medications Administered Current Inpatient Medications Acetaminophen (Acetaminophen 325 Mg Tab) 650 mg PO Q4H PRN PRN Reason: Pain or Fever Stop: 01/02/23 15:16 Last Admin: 12/08/22 07:41 Dose: 650 mg Al Hydrox/Mg Hydrox/Simethicone (Aluminum/Magnesium Susp 30 Ml Udc) 15 ml PO Q4H PRN PRN Reason: Dyspepsia Stop: 01/02/23 15:16 Albuterol (Albut/Ipratrop 3mg/0.5mg Neb 3 Ml Vial) 3 ml NEB Q8R [facility]; Protocol Stop: 01/05/23 14:59 Last Admin: 12/08/22 07:28 Dose: Not Given Amoxicillin/Clavulanate Potassium (Amoxicillin/Clavulanate 875 Mg Tab) 1 tab PO BIDM [facility] Stop: 12/13/22 16:59 Last Admin: 12/07/22 16:44 Dose: 1 tab Atorvastatin Calcium (Atorvastatin 40 Mg Tab) 40 mg PO DAILY [facility] Stop: 01/03/23 08:59 Last Admin: 12/07/22 08:29 Dose: 40 mg Budesonide (Budesonide 0.25 Mg/2 Ml Vial (Pulmicort)) 0.25 mg NEB BIDR [facility] Stop: 01/02/23 18:59 Last Admin: 12/08/22 07:28 Dose: 0.25 mg Doxycycline Hyclate (Doxycycline Hyclate 100 Mg Cap) 100 mg PO BID [facility] Stop: 12/13/22 20:59 Last Admin: 12/07/22 20:47 Dose: 100 mg Formoterol Fumarate (Formoterol 20 Mcg/2 Ml Vial) 20 mcg INH BIDR [facility] Stop: 01/02/23 18:59 Last Admin: 12/08/22 07:27 Dose: 20 mcg Guaifenesin (Guaifenesin 600 Mg Tabcr) 600 mg PO Q12 [facility] Stop: 01/02/23 20:59 Last Admin: 12/07/22 20:49 Dose: 600 mg Guaifenesin/Codeine Phosphate (Guaifenesin/Codeine 200mg/20mg 10ml Udc) 10 ml PO Q6H PRN PRN Reason: Cough Stop: 01/03/23 18:27 Last Admin: 12/08/22 07:42 Dose: 10 ml Methylprednisolone 40 mg/ (Syringe) 0.64 mls @ 1.5 mls/min IV DAILY [facility] Stop: 01/07/23 08:59 Magnesium Hydroxide (Magnesium Hydroxide Susp 30 Ml Udc) 30 ml PO Q12H PRN PRN Reason: Constipation Stop: 01/02/23 15:16 Mirtazapine (Mirtazapine Soltab 15 Mg) 45 mg PO HS [facility] Stop: 01/02/23 20:59 Last Admin: 12/07/22 20:49 Dose: 45 mg Montelukast Sodium (Montelukast Sodium 10 Mg Tablet) 10 mg PO HS [facility] Stop: 01/03/23 20:59 Last Admin: 12/07/22 20:48 Dose: 10 mg Ondansetron HCl (Ondansetron Inj 2 Mg/Ml 2 Ml Vial) 4 mg IV Q6H PRN PRN Reason: Nausea Stop: 01/02/23 15:16 Pantoprazole Sodium (Pantoprazole 40 Mg Tab) 40 mg PO DAILY [facility] Stop: 01/03/23 08:59 Last Admin: 12/07/22 08:28 Dose: 40 mg Polyethylene Glycol (Polyethylene (Miralax) 17 Gm Pack) 17 gm PO DAILY PRN PRN Reason: Constipation Stop: 01/02/23 15:16 Last Admin: 12/08/22 07:41 Dose: 17 gm Quetiapine Fumarate (Quetiapine Fumarate 100 Mg Tablet) 100 mg PO HS [facility] Stop: 01/02/23 20:59 Last Admin: 12/07/22 20:48 Dose: 100 mg Sodium Chloride (Sodium Chlor 7% 4 Ml Neb) 4 ml NEB BIDR [facility] Stop: 01/04/23 18:59 Last Admin: 12/08/22 07:28 Dose: 4 ml Umeclidinium Elizabeth (Umeclidinium Elizabeth 62.5mcg/Blister 7 Puffs/Inhaler) 1 puffs INH DAILY [facility] Stop: 01/05/23 10:59 Last Admin: 12/07/22 08:30 Dose: 1 puffs
[2022-12-08] MEDS: guaiFENesin 600 MG TABCR PO SCH ×2 (08:47→21:58)
[2022-12-08] MEDS: PANTOprazole 40 MG TAB PO SCH (08:48)
[2022-12-08] MEDS: AMOXICILLIN/CLAVULANATE 875 MG TAB PO SCH ×2 (08:48→17:05)
[2022-12-08] MEDS ORDERED: methylPREDNISolone 40 MG in SYRINGE 0 ML IV SCH (09:00)
[2022-12-08 09:22] LABS: Calcium 8.6 mg/dl (8.6-10.3); Potassium 3.6 mmol/L (3.5-5.1)
[2022-12-08 09:28] LABS: BUN Creatinine Ratio 20.5 (10-20); Creatinine Clr Calc Pharmacy 78.2 ml/min; Est GFR (African American) 99.5 ml/min; Est GFR (Non-African American) 85.8 ml/min
[2022-12-08 13:47] LABS: Hepatitis C Vira RNA (Log) PCR <1.18 NOT DETECTED Log IU/mL (NOT DETECTED); Hepatitis C Viral RNA by PCR <15 NOT DETECTED IU/mL (NOT DETECTED)
--- NOTE | 2022-12-08 14:56 | Gastroenterology Progress Note ---
Date of Service December 08, 2022 Assessment & Plan (1) Abnormal chest CT: Plan: Suspect masses in liver related to lung or other primary. He does not have active Hepatitis C infection. His alpha-fetoprotein level is in the normal range. Admission and Anticipated Discharge Date Admission Date: December 03, 2022 Subjective HCV RNA not detected so exposure to Hep C no active infection. AFP is normal as well. Results & Data Vital Signs (Past 12 Hours) Vital Signs Temp Pulse Resp BP Pulse Ox O2 Del Method O2 Flow Rate 12/08/22 07:50 Nasal Cannula 1 12/08/22 07:45 36.5 C 90 18 158/89 H 94 Nasal Cannula 1 12/08/22 07:29 76 18 91 Nasal Cannula 1
[2022-12-08] MEDS: QUEtiapine FUMARATE 100 MG TABLET PO SCH (21:58)
[2022-12-08] MEDS: MONTELUKAST SODIUM 10 MG TABLET PO SCH (21:58)
[2022-12-08] MEDS: MIRTAZAPINE SOLTAB 15 MG PO SCH (21:58)
[2022-12-09] MEDS: FORMOTEROL 20 MCG/2 ML VIAL INH SCH (07:14)
[2022-12-09] MEDS: BUDESONIDE 0.25 MG/2 ML VIAL (PULMICORT) NEB SCH (07:14)
[2022-12-09] MEDS: SODIUM CHLOR 7% 4 ML NEB NEB SCH (07:14)
[2022-12-09] MEDS: ALBUT/IPRATROP 3MG/0.5MG NEB 3 ML VIAL NEB SCH ×2 (07:15→14:55)
--- NOTE | 2022-12-09 08:03 | Oncology Consultation ---
Date of Consultation December 09, 2022 Assessment & Plan (1) Non-small cell lung cancer: Plan 72-year-old gentleman recently diagnosed with non-small cell lung cancer NOS. Neotype molecular panel pending at the time of today's visit. Imaging studies suggestive of stage IV disease with lung, abdominal/liver metastasis. Discussed my thoughts with patient. Explained to him that given stage IV disease, options of treatment would be directed at improving symptoms, prolonging life and im proving quality of life. Results from neotype molecular testing will determine option of treatment. If he is found to not have an actionable mutation, would recommend treating with IV chemoimmunotherapy utilizing carboplatin, paclitaxel and pembrolizumab which will be given every 3 weeks for total of 4-6 cycles followed by maintenance pembrolizumab. Single agent pembrolizumab but also be an option if PD-L1 is greater than 50%. We will await results for molecular testing. Plan to schedule patient for outpatient follow-up with oncology in about 1 to 2 weeks. He will need outpatient PET/CT Thank you for this consult. Plan to see him on discharge. Feel free to call if you have any further questions History of Present Illness Attending Physician: Sadaf San MD History of Present Illness 72-year-old with significant smoking history, history of alcohol and drug use who presented to [facility] on 12/03/2022 with worsening shortness of breath, left-sided chest pain, cough, weight loss and dizziness. Chest x-ray on 12/03/2022 revealed right lower lung airspace opacity. 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 Abdominal ultrasound on 12/03/2022 also revealed multiple hepatic masses measuring up to 2.8 cm consistent with metastatic disease. Brain MRI on 12/04/2022 revealed no evidence to suggest intracranial metastatic disease. Bronchoscopy/EBUS with biopsy performed on 12/04/2022 revealed carcinoma with prominent nucleoli and no distinct squamous or glandular differentiation, negative for squamous, lung adenocarcinoma and neuroendocrine markers consistent with non-small cell carcinoma, not otherwise specified. Since admission, he has been treated with IV antibiotics for pneumonia. States that he is doing better. Allergies Allergy/AdvReac Type Severity Reaction Status Date / Time No Known Allergies Allergy Unverified 12/03/22 11:58 Home Medications Medication Instructions Recorded Confirmed Type albuterol sulfate 90 mcg/actuation 2 puff inhalation QID PRN 12/03/22 12/03/22 History aerosol inhaler Shortness Of Breath aspirin 81 mg chewable tablet 81 mg PO DAILY 12/03/22 12/03/22 History (Children's Aspirin) atorvastatin 40 mg tablet 40 mg PO DAILY 12/03/22 12/03/22 History ciclesonide 80 mcg/actuation 1 puff inhalation BID 12/03/22 12/03/22 History aerosol inhaler (Alvesco) lisinopril 20 mg tablet 20 mg PO DAILY 12/03/22 12/03/22 History mirtazapine 45 mg tablet 45 mg PO HS 12/03/22 12/03/22 History montelukast 10 mg tablet 10 mg PO DAILY 12/03/22 12/03/22 History omeprazole 20 mg tablet,delayed 20 mg PO DAILY 12/03/22 12/03/22 History release quetiapine 100 mg tablet 100 mg PO HS 12/03/22 12/03/22 History Patient History Medical History (Updated 12/09/22 @ 08:06 by Bryanna Stern MD) Asthma Depression with anxiety HCV (hepatitis C virus) History of alcohol abuse History of drug use History of tobacco abuse HLD (hyperlipidemia) HTN (hypertension) Surgical History Hx of cardiac cath pt states no stents were placed Family History Other Unknown family medical history Social History Smoking Status: Former smoker Hx Alcohol Use: No Hx Substance Use: No Preferred Language: Azeri Communication Ability: Effective Clinical Trainer Required: No Beliefs That Will Affect Care: None Current Living Situation: Other Current Living Situation Comment: [facility] Feels Safe at Home: Yes Assistive Devices: None Results & Data Vital Signs (Past 12 Hours) Vital Signs Temp Pulse Resp BP Pulse Ox O2 Del Method O2 Flow Rate 12/09/22 07:54 Nasal Cannula 1 12/09/22 07:24 36.5 C 76 20 110/76 96 Nebulizer 8 12/08/22 23:45 36.9 C 90 18 123/75 93 Nasal Cannula 1.5 12/08/22 22:53 80 16 95 Nasal Cannula 1
[2022-12-09] MEDS: POLYETHYLENE (MIRALAX) 17 GM PACK PO PRN (08:28)
[2022-12-09] MEDS: UMECLIDINIUM BROMIDE 62.5MCG/BLISTER 7 PUFFS/INHALER INH SCH (08:30)
[2022-12-09] MEDS: PANTOprazole 40 MG TAB PO SCH (08:31)
[2022-12-09] MEDS: DOXYCYCLINE HYCLATE 100 MG CAP PO SCH (08:31)
[2022-12-09] MEDS: guaiFENesin 600 MG TABCR PO SCH (08:31)
[2022-12-09] MEDS: AMOXICILLIN/CLAVULANATE 875 MG TAB PO SCH (08:32)
[2022-12-09] MEDS: ATORVASTATIN 40 MG TAB PO SCH (08:32)
[2022-12-09 08:34] LABS: Hematocrit (blood only) 37.1 % (42.0-52.0); Hemoglobin 12.1 g/dl (14.0-18.0); Mean Corpuscular Hemoglobin 27.2 pg (25.0-34.0); Mean Corpuscular Hgb Conc 32.6 g/dL (32.0-36.0); Mean Corpuscular Volume 83.4 fL (80.0-100.0); Mean Platelet Volume 9.2 fL (9.4-12.4); Platelet Count 418 K/uL (130-400); RDW Coefficient of Variation 14.5 % (11.5-14.5); RDW Standard Deviation 42.9 fL (36.4-46.3); Red Blood Count 4.45 M/uL (4.70-6.10); White Blood Count 11.91 K/ul (4.8-10.8)
[2022-12-09 08:49] LABS: BUN Creatinine Ratio 23.9 (10-20); Calcium 8.6 mg/dl (8.6-10.3); Creatinine Clr Calc Pharmacy 78.2 ml/min; Est GFR (African American) 99.5 ml/min; Est GFR (Non-African American) 85.8 ml/min; Potassium 3.4 mmol/L (3.5-5.1)
[2022-12-09] MEDS ORDERED: predniSONE 20 MG TAB PO SCH (09:00)
[2022-12-09] MEDS ORDERED: POTASSIUM CHLORIDE 20 MEQ/15 ML UDC PO STA (09:47)
--- NOTE | 2022-12-09 12:21 | Pulmonology Progress Note ---
Date of Service December 09, 2022 Assessment & Plan (1) Abnormal chest CT: (2) LAD (lymphadenopathy), mediastinal: (3) Pneumonia: Laterality: right Lung location: unspecified part of lung Pneumonia type: due to unspecified organism Qualified Code(s): J18.9 - Pneumonia, unspecified organism (4) SOB (shortness of breath): (5) COPD (chronic obstructive pulmonary disease): (6) Peripheral eosinophilia: (7) Non-small cell lung cancer: Plan CT chest 12/03/2022 personally reviewed: Centrilobular and paraseptal emphysema appreciated bilaterally Right lower lobe 2.2 x 1.6 cm nodularity close to the mediastinum/esophagus, another 3.9 x 2.4 cm right lower lobe posterior nodularity Significant mediastinal lymphadenopathy, especially station 7 2D echo 12/04/2022: EF 60-65%, mild concentric LVH, RV normal in size and function , grade 1 diastolic dysfunction -- Abnormal chest CT with mediastinal lymphadenopathy and pulmonary nodules Likely representing cancer Seems to be primary lung Cytology positive for non-small cell lung cancer Respiratory bio fire negative for everything including COVID-19, influenza A/B Procalcitonin 0.17 Platelets 393 MRI brain 12/04/2022 negative for intracranial mets S/p EBUS 12/04/2022, follow-up cytology and pathology -- COPD with emphysema On Alvesco and montelukast We will put him on budesonide and Perforomist nebulized while in the hospital --Eosinophilia Absolute eosinophil count 910 Plan: Continue with prednisone 40 mg for 3 days followed by 20 mg for 3 days Continue with Brovana/budesonide, Incruse, hypertonic saline, Mucinex and flutter valve while in the hospital Cytology is positive for non-small cell lung cancer, they were not able to differentiate between squamous versus adeno On discharge would recommend Trelegy 200 over BrezTri inhaler once a day O2 supplementation to keep oxygen saturation between 88-92% Case was discussed with hospitalist Please note the above document was generated using voice recognition software. It may contain grammatical, syntax or spelling errors.Any formal questions or concerns about the content, text or information contained within the body of this dictation should be directly addressed to the provider for clarification. Admission and Anticipated Discharge Date Admission Date: December 03, 2022 Subjective Patient seen and examined at bedside. No acute distress, no adverse events overnight Has been coughing up. He has been saturating 91-92% on 1 L nasal cannula Does complain of pain when he coughs. No hemoptysis No nausea or vomiting Fair appetite Overall he does state he is feeling better and breathing has improved Review of Systems Review of Systems: All systems reviewed & are unremarkable except as noted in Subjective Physical Exam Physical Exam: Constitutional: No acute distress HEENT: EOMI, PERRLA Respiratory system: Decreased air entry bilaterally, no rhonchi, minimal wheeze on the right side, positive crackles bilateral lower lobes more on the right CVS: S1-S2 positive, no murmurs or gallops Abdomen: Soft, nontender, nondistended, positive bowel sounds x4 Extremities: +2 pulses bilaterally radialis/ dorsalis pedis, no cyanosis, no edema, positive clubbing Neuro: Awake alert oriented x3 Psych: Normal mood and affect G/U: No Brewer Skin: no rashes, warm and dry Lymphatic: no cervical or axillary lymphadenopathy Results & Data Results & Data Vital Signs (Past 12 Hours) Vital Signs Temp Pulse Resp BP Pulse Ox O2 Del Method O2 Del Method 12/09/22 09:00 Nasal Cannula 12/09/22 07:13 79 16 91 Nasal Cannula 12/09/22 07:54 Nasal Cannula 12/09/22 07:24 36.5 C 76 20 110/76 96 Nebulizer O2 Flow Rate 12/09/22 09:00 12/09/22 07:13 1.5 12/09/22 07:54 1 12/09/22 07:24 8 Laboratory Results 12/09/22 08:14 12/09/22 08:14 PG Care Time/CCT Total # of Minutes Spent Total Time Spent with Patient: Total time spent is greater than 50% in coordination of care (as documented) at patient's floor/unit and/or counseling patient: Coding Level of Care Code 85681 SUB INP/OBS CARE 2/35MIN Diagnoses Abnormal chest CT R93.89 LAD (lymphadenopathy), mediastinal R59.0 Pneumonia J18.9 Laterality: right Lung location: unspecified part of lung Pneumonia type: due to unspecified organism SOB (shortness of breath) R06.02 COPD (chronic obstructive pulmonary disease) J44.9 Peripheral eosinophilia D72.19 Non-small cell lung cancer C34.90
--- NOTE | 2022-12-09 13:17 | Discharge Summary ---
Date of Service December 09, 2022 Admission HPI Per Admitting Provider This is a 72-year-old male who has a significant past medical history of HTN, HLD, depression with anxiety, asthma, history of [id number] tobacco abuse, history of alcohol abuse and history of drug use who presents from [facility] secondary to cough x3 weeks. Patient complains of a dry cough that has been present for the past 3 weeks. He further complains of shortness of breath at rest, with exertion, left-sided chest pain with cough, nausea, fatigue, decreased weight loss, presumed decreased appetite, lightheadedness and dizziness. He states symptoms have been worsening for the last 3 weeks. He was recently treated with course of Augmentin and azithromycin at the present. He noted no improvement with this. He denies any known fever, chills, sweats, night sweats, hemoptysis, vomiting, hematemesis, diarrhea, abdominal pain, change in bowel or urinary habits. He denies any history of any significant heart disease. He states he did have cardiac cath before. He denies any surgical history. He is unaware of his family history. Admission Exam Per Admitting Provider Constitutional: WD/WN, male, appears acutely ill, vitals as above, NAD, sitting up in bed, pleasant, conversing easily and answers questions appropriately Head: Normocephalic, Atraumatic Eyes: PERRL, conjunctivae normal, anicteric sclerae ENMT: external ear and nose normal, oropharynx normal Neck: trachea midline, no thyromegaly normal visual inspection Respiratory: normal respiratory effort, lungs clear to auscultation with right- sided lower expiratory wheeze and rhonchi, no Rales. Normal insp/exp effort, no accessory muscle use Cardiovascular: Irregular rhythm, tachy rate, no murmur, no edema Vessels: no JVD or carotid bruit Chest: normal inspection of chest Abdomen: normal bowel sounds, soft, nontender, no hepatosplenomegaly Musculoskeletal: no cyanosis or clubbing, AROM x 4 Skin: no rashes, warm and dry normal turgor Neurologic: PERRL, EOMI, accommodation nl, no face palsy, no dysarthria CN's II-XI intact bilaterally and moves all extremities Psychiatric: A+Ox3, euthymic affect Lymphatic: no cervical or axillary lymphadenopathy : deferred Principal Diagnosis New lung cancer diagnosis Pneumonia COPD Discharge Exam Constitutional + well hydrated; no acute distress Eyes PERRL, conjunctivae normal, anicteric sclerae ENMT external ear and nose normal, oropharynx normal Respiratory normal respiratory effort Bilateral crackles, reduced breath sounds On nasal cannula Cardiovascular Rate/Rhythm: regular rate and regular rhythm S1 S2 Gastrointestinal (Abdomen) normal bowel sounds, soft, nontender, no hepatosplenomegaly Neurologic PERRL, EOMI, accommodation nl, no face palsy, no dysarthria Psychiatric A+Ox3, euthymic affect Discharge Data Allergies Allergy/AdvReac Type Severity Reaction Status Date / Time No Known Allergies Allergy Unverified 12/03/22 11:58 Consultations 12/03/22 11:51 ED Decision to Admit Stat 12/03/22 12:40 Consult Pulmonology Routine 12/05/22 14:07 Consult Gastroenterology Routine 12/09/22 07:50 Consult Oncology Routine Procedures Performed Operation Date: 12/04/22 13:30 Actual Procedures p Endobronchial Ultrasound(Not Applicable) - César Mack MD, [facility] s Bronchoscopy(Not Applicable) - César Mack MD, [facility] Ordered Studies 12/03/22 09:43 CT angio chest PE protocol Stat 12/03/22 13:46 US abdomen limited Routine 12/04/22 00:25 MR brain wo/w con Routine Hospital Course (1) Abnormal chest CT: (2) Pneumonia: (3) Hypotension: (4) Anemia: (5) HCV (hepatitis C virus): Plan 72-year-old male who has a significant past medical history of HTN, HLD, depression with anxiety, asthma, history of [id number] tobacco abuse, history of alcohol abuse and history of drug use who presents from [facility] secondary to cough x3 weeks. Possible sepsis on admission Pneumonia Elevated lactate at 2.5 (resolved) Hypotension resolved Blood cultures are negative CT chest noted centrilobular and paraseptal emphysema, RLL 2.2x1.6cm nodularity close to mediastinum/esophagus, 3.9x2.4cm RLL, significant mediastinal lymphadenopathy Was on IV zosyn, then transitioned to Augmentin and doxycycline. Completed 7 days of antibiotics Patient was treated COPD with emphysema Room Clerk evaluated. Treated with steroid. Discharged on prednisone taper 40mg x3 days, then 20mg x 3 days Discharged on trelegy inhaler Discharged on nasal oxygen 1-2L/min to maintain ox sats of 88-92% Non small cell lung cancer Abnormal chest CT Liver masses Anemia Patient with weight loss 20 lb in past month CT chest noted centrilobular and paraseptal emphysema, RLL 2.2x1.6cm nodularity close to mediastinum/esophagus, 3.9x2.4cm RLL, significant mediastinal lymphadenopathy and numerous hepatic metastatasis Anemia multifactorial but may have to do with chronic disease +HCV antibody. HCV RNA not detected. Per HCV workup, there is no evidence of active infection and alpha-fetoprotein is within normal limits. S/P EBUS on 12/04/22 Pathology showing nonsmall cell lung cancer. Further results pending Evaluated by Oncologist who will plan outpatient follow up and PET scan Wandering Atrial Pacemaker Per Previous Provider, pt with evidence of what appeared to be afib on tele Now back in sinus rhythm Previous Provider discussed with cards to review tele who felt wandering atrial pacemaker, not afib Hypertension Lisinopril was initially held due to hypotension BP improved, normal to high Resume lisinopril at lower dose of 10mg daily on discharge Hx of tobacco abuse Hx of alcohol abuse Hx of Drug use with cocaine and marijuana I called to [facility] and updated Nurse Practitioner there about findings and plans Total Time Total Time Spent Total Time Spent (In Minutes): 55 Total Time Includes: Examination of the Patient, Discharge Planning, Medication Reconciliation and Communication With Other Providers Discharge Plan Discharge Items [facility] Disposition: [facility] Reason For Visit: PNEUMONIA, CT FINDINGS CONCERNING FOR LUNG CANCER Discharge Diagnosis: New lung cancer diagnosis Pneumonia COPD Condition on Discharge: Fair Activity: Resume your previous activity Non-emergency contact: Primary Care Provider and Oncologist Call non-emergency contact if: you have any medication questions and your symptoms worsen Follow-up/Referrals: Fidelina LIU [Primary Care Provider] - Diet: Heart Healthy Addtl Attending Provider Instructions: Mr Person You came to the hospital with cough and shortness of breath. Your evaluation noted abnormalities on the CT scan. You had bronchoscopy and pathology is showing non small cell lung cancer. Please ensure follow up with Oncology in the office for continued evaluation and management. You completed antibiotics for pneumonia. You are being discharged on prednisone taper. You are being discharged on trelegy inhaler. You can stop the alvesco once you start this. Your lisinopril was reduced to 10mg daily. You are being discharged on nasal oxygen (1-2L/min) to maintain oxygen saturation of 88-92%. It was a pleasure taking care of you. Pending Studies at Discharge: Yes Stand-Alone Forms: My [facility] Skilled Items Patient informed of condition?: Yes Discharge Level of Care: Other Communicable Disease: No Discharge Prognosis: Stable Lines: None Urinary Catheter: No Medications and DC Order Prescriptions: New Trelegy Ellipta 200-62.5-25 mcg blister with device 1 inh inhalation DAILY Qty: 60 0RF prednisone 20 mg Tablet See Rx Instructions .ROUTE .COMPLEX Qty: 9 0RF Rx Instructions: Take 2 tabs daily for 3 days, then 1 tab daily for 3 days guaifenesin [Mucinex] 600 mg Tablet Extended Release 12hr 600 mg PO Q12 Qty: 10 0RF polyethylene glycol 3350 [Miralax] 17 gram Powder In Packet 17 g PO DAILY PRN (Reason: constipation) Qty: 10 0RF Continued atorvastatin 40 mg Tablet 40 mg PO DAILY quetiapine 100 mg Tablet 100 mg PO HS mirtazapine 45 mg Tablet 45 mg PO HS aspirin [Children's Aspirin] 81 mg Tablet,Chewable 81 mg PO DAILY montelukast 10 mg Tablet 10 mg PO DAILY albuterol sulfate 90 mcg/actuation Hfa Aerosol Inhaler 2 puff INHALATION QID PRN (Reason: Shortness Of Breath) omeprazole 20 mg Tablet,Delayed Release (Dr/Ec) 20 mg PO DAILY Alvesco 80 mcg/actuation Hfa Aerosol Inhaler 1 puff INHALATION BID Rx Instructions: Rinse mouth after use Changed lisinopril 20 mg Tablet 10 mg PO DAILY Qty: 30 0RF Discharge Orders: Discharge Order (Routine); Ordered 12/09/22 Ordered By: Sadaf Holman/Other Patient Handouts: Treating Pneumonia, Living with Lung Cancer Admission Data Admit Date/Time: 12/03/22 12:40 Attending Provider: Sadaf San I. Admit Provider: Griselda Rutherford Primary Care Provider: Fidelina LIU Other Providers: Griselda Rutherford ; César Mack ; Lalita Sosa Jr ; Melba Chacon ; Bryanna Stern Other Interventions: Discharge Summary Assessment (RN) Last Done: 12/09/22 13:47
== END 2022-12-09 17:07 | DRG 871 ==
LOC: ED 08:50 → EDINP 12:40 → SUATTDRO 12:40 → 2S 19:16 → 3W 12-06 17:23

== ENCOUNTER 2023-01-05 15:15 | Inpatient (IN) ==
--- NOTE | 2023-01-05 16:22 | Emergency Department Note ---
Impression & Plan Acute on chronic respiratory failure with hypoxia, COPD (chronic obstructive pulmonary disease), SOB (shortness of breath), Lung cancer, Acute hyponatremia ED Provider Note NAME: BALA [id number] LEISA AGE: 72 SEX: M : 1950 ARRIVES VIA: Ambulance INFORMANT: Patient, ED PROVIDER(S): Gokul Rubi MD CHIEF COMPLAINT: Shortness of breath MEDICAL DECISION MAKING: Patient presented due to concern for worsening shortness of breath and associated hemoptysis with increasing oxygen requirement. IV was established and blood work was obtained. CT angiography of the chest was ordered. Patient did have an EKG completed as well. Patient did have a repeat EKG which showed possible junctional escape rhythm. The patient has had a prior history of wandering atrial pacemaker. The patient was given additional IV fluids as well as magnesium. This did improve his symptoms to where he reverted to a sinus rhythm. Patient blood work shows mild white count of 11 with a hemoglobin 11 which is chronic. Thrombocytosis at 610 which is increased compared to prior. Kidney function is grossly unremarkable but the patient does have hyponatremia at 127. Spoke with on-call hospitalist Dr. Houston and antibiotics would be added. Patient does have mild procalcitonin at 0.6. Patient's chest x-ray shows airspace consolidation and diffuse interstitial thickening. Emphysematous changes noted. CTA shows interval worsening metastatic disease of both lungs. Critical Care: I have personally spent 35 minutes of critical care time in direct management of this patient. This includes bedside care, interpretation of diagnostic studies, and testing, discussion with consultants, patient, and family members, and other require inpatient management activities. This 35 minutes is in excess of all separately billable procedures. Prior /Outside records reviewed: I did review discharge summary from Dr. San from December 10, 2022. Patient has known history of hypertension hyperlipidemia depression anxiety asthma tobacco abuse history of alcohol abuse but presented during his most recent admission due to concerns for cough for 3 weeks. Patient was noted to have emphysematous change on the CT of the chest with associated mediastinal lymphadenopathy. Patient did complete a course of IV Zosyn transition to Augmentin and Doxy. Patient was noted to have non-small cell lung CA with associated liver mets. Patient also had a wandering atrial pacemaker with evidence of possible A-fib. After discussion with cardiology thought this is wandering atrial pacemaker and not atrial fibrillation. Differential diagnosis: Reactive airway disease, pneumonia, pneumothorax, COPD, CHF, infections, cardiac ischemia, pulmonary embolism, musculoskeletal, gastrointestinal, as well as other pathologies. Diagnostics, as interpreted by me: ECG: Normal sinus rhythm, rate 94, normal intervals, normal axis no ST elevations. Repeat EKG interpreted by me Accelerated junctional rhythm versus wandering atrial pacemaker, ventricular rate of 114 with a normal QRS duration, normal axis no ST elevations. Cardiac monitoring: An order was placed for continuous cardiac monitoring. The monitor shows a rate of 77 with sinus rhythm. Patient was placed on pulse oximetry Medical decision rules: None Imaging studies: See below I did review the patient's chest x-ray which did show consolidations but no obvious pneumothorax. HPI: Patient presents from [facility] due to concern for worsening shortness of breath over the last 2 days with associated DODD. Patient is supposed to wear 5 L of oxygen at all times but this is the highest that the senior living can use. Patient has had associated right-sided chest pain as well as left flank discomfort. Patient states that he has not had any recent falls. The patient is a former smoker with a recent diagnosis of non-small cell lung CA. Patient has been taking his medications as prescribed. The corrections officers noted the patient did have some speckled blood in the patient sputum. Patient did have 2 episodes of vomiting in the last 2 days. No blood in the vomit. Patient has h ad no issues with stools. No leg swelling or calf pain. PAST MEDICAL HISTORY: See Below PAST SURGICAL HISTORY: See Below SOCIAL HISTORY: See Below HOME MEDICATIONS: See Below ALLERGIES: See Below VITALS: See Below PHYSICAL EXAMINATION: GENERAL: NAD, non-toxic. Nasal cannula in place. EYE EXAM: Normal conjunctiva. PERRL, no anisocoria and EOM's grossly intact w/o pain. NECK: Supple, no nuchal rigidity, no adenopathy, non-tender. No signs of meningismus. FROM of the neck with good chin to chest and neck extension. No stridor. LUNGS: Decreased breath sounds throughout. Scant wheezes noted. Normal chest wall mechanics. HEART: NSR, no MRG. ABDOMEN: Abdomen soft, non-tender, no masses, no rebound or guarding. BACK: No CVA TTP. SKIN: No rashes and no bruising. UPPER EXTREMITIES: Upper extremities are grossly normal. LOWER EXTREMITIES: Grossly normal, no edema. Negative Homans' sign bilaterally. NEURO EXAM: A&O x3, cranial nerves II-XII grossly intact, normal speech, moves all 4 extremities. Past Med/Surg History Medical History Asthma Depression with anxiety HCV (hepatitis C virus) History of alcohol abuse History of drug use History of tobacco abuse HLD (hyperlipidemia) HTN (hypertension) Surgical History Hx of cardiac cath pt states no stents were placed Family History Other Unknown family medical history Social History Smoking Status: Never smoker Tobacco Cessation Education Requested by Patient: No Hx Alcohol Use: No Hx Substance Use: No Preferred Language: Greenlandic Communication Ability: Effective Communication Ability Comment: unable to read or write in citizen [place] Digital Specialist Required: No Beliefs That Will Affect Care: None Current Living Situation: Other Current Living Situation Comment: From [facility] Feels Safe at Home: Yes Assistive Devices: Glasses Allergies Allergies Allergy/AdvReac Type Severity Reaction Status Date / Time No Known Allergies Allergy Verified 01/05/23 17:51 Home Meds Home Medications Medication Instructions Recorded Confirmed albuterol sulfate 90 mcg/actuation 2 puff inhalation QID PRN 12/03/22 01/05/23 aerosol inhaler Shortness Of Breath aspirin 81 mg chewable tablet 81 mg PO [facility] 12/03/22 01/05/23 (Children's Aspirin) atorvastatin 40 mg tablet 40 mg PO [facility] 12/03/22 01/05/23 mirtazapine 45 mg tablet 45 mg PO 12/03/22 01/05/23 montelukast 10 mg tablet 10 mg PO QA 12/03/22 01/05/23 quetiapine 100 mg tablet 100 mg PO 12/03/22 01/05/23 D5 %-0.45 % sodium chloride 1,000 ml IV DAILY 01/05/23 01/05/23 acetaminophen 300 mg-codeine 30 mg 2 tab PO TID 01/05/23 01/05/23 tablet aluminum-mag hydroxide-simethicone 30 ml PO TID 01/05/23 01/05/23 200 mg-200 mg-20 mg/5 mL oral susp (Jackie-Lanta) docusate sodium 250 mg capsule 250 mg PO BID 01/05/23 01/05/23 fentanyl 50 mcg/hr transdermal 1 patch transdermal Q72H 01/05/23 01/05/23 patch fluticasone fur. 200 mcg-umeclid 1 inh inhalation QAM 01/05/23 01/05/23 62.5 mcg-vilant 25 mcg inhalat.powder (Trelegy Ellipta) food supplemt, lactose-reduced 1 ea PO TID 01/05/23 01/05/23 (Ensure oral liquid) ipratropium 0.5 mg-albuterol 3 mg 3 ml inhalation QID PRN Shortness 01/05/23 01/05/23 (2.5 mg base)/3 mL nebulization Of Breath soln omeprazole 40 mg capsule,delayed 40 mg PO QAM 01/05/23 01/05/23 release ondansetron 4 mg disintegrating 4 mg PO QID PRN NAUSEA/VOMITING 01/05/23 3 tablet Previous Rx's Medication Instructions Recorded polyethylene glycol 3350 17 gram 17 g PO DAILY PRN constipation #10 12/09/22 oral powder packet (Miralax) ea Results & Data (ED) Vital Signs Vital Signs - 24 hr 01/05/23 15:22 01/05/23 15:22 01/05/23 15:22 Temperature 36.7 C 36.7 C Temperature Source Oral Oral Pulse Rate 99 H Pulse Rate [Apical] 99 H Pulse Rhythm [Apical] Pulse Strength [Apical] Respiratory Rate 22 22 Respiratory Effort / Characteristics Short of Breath Respiratory Depth Blood Pressure 100/67 Blood Pressure [Left Arm] 100/67 Blood Pressure Mean 78 Blood Pressure Mean [Left Arm] 78 Blood Pressure Position Sitting Blood Pressure Position [Left Arm] Sitting Pulse Oximetry 90 90 90 Oxygen Delivery Method Nasal Cannula Nasal Cannula Nasal Cannula Oxygen Flow Rate 7 7 7 Sepsis Recent Fever Within 48 Hours No Sepsis New/Unexplained Change in Mental Status N/A Sepsis Action Taken by Nursing No Action Required 01/05/23 16:39 01/05/23 16:28 01/05/23 17:15 Temperature Temperature Source Pulse Rate 80 Pulse Rate [Apical] 93 H Pulse Rhythm [Apical] Regular Pulse Strength [Apical] Normal Respiratory Rate 20 Respiratory Effort / Characteristics Non-Labored Spontaneous Respiratory Depth Normal Blood Pressure Blood Pressure [Left Arm] 100/66 Blood Pressure Mean Blood Pressure Mean [Left Arm] 77 Blood Pressure Position Blood Pressure Position [Left Arm] Pulse Oximetry 93 92 Oxygen Delivery Method Aerosol Mask Nasal Cannula Oxygen Flow Rate 5 Sepsis Recent Fever Within 48 Hours Sepsis New/Unexplained Change in Mental Status Sepsis Action Taken by Nursing 01/05/23 18:01 01/05/23 19:14 Temperature Temperature Source Pulse Rate 117 H Pulse Rate [Apical] 91 H Pulse Rhythm [Apical] Pulse Strength [Apical] Respiratory Rate 22 Respiratory Effort / Characteristics Respiratory Depth Blood Pressure Blood Pressure [Left Arm] 115/72 Blood Pressure Mean Blood Pressure Mean [Left Arm] 86 Blood Pressure Position Blood Pressure Position [Left Arm] Lying Pulse Oximetry 94 Oxygen Delivery Method Aerosol Mask Oxygen Flow Rate Sepsis Recent Fever Within 48 Hours Sepsis New/Unexplained Change in Mental Status Sepsis Action Taken by [facility] Medications Current Medication List: was personally reviewed by me Laboratory Data Attestation: I reviewed the patient's lab results. 01/05/23 15:30 01/05/23 15:30 Lab Results 01/05/23 01/05/23 01/05/23 Range/Units 15:30 15:30 15:30 WBC 11.05 H (4.8-10.8) K/ul RBC 4.09 L (4.70-6.10) M/uL Hgb 11.0 L (14.0-18.0) g/dl Hct 32.5 L (42.0-52.0) % MCV 79.5 L (80.0-100.0) fL MCH 26.9 (25.0-34.0) pg MCHC 33.8 (32.0-36.0) g/dL RDW Std Deviation 44.3 (36.4-46.3) fL RDW Coeff of Abby 15.5 H (11.5-14.5) % Plt Count 610 H (130-400) K/uL MPV 9.3 L (9.4-12.4) fL Immature Gran % (Auto) 1.4 % Neut % (Auto) 73.6 % Lymph % (Auto) 14.1 % [place] % (Auto) 9.0 % Eos % (Auto) 1.1 % Baso % (Auto) 0.8 % Neut # (Auto) 8.14 H (1.40-6.50) K/uL Lymph # (Auto) 1.56 (1.2-3.4) K/uL [place] # (Auto) 0.99 H (0.11-0.59) K/uL Eos # (Auto) 0.12 (0-0.50) K/uL Baso # (Auto) 0.09 (0-0.2) K/uL Immature Gran # (Auto) 0.15 (0.01-0.20) K/uL PT (9.0-12.0) Seconds INR (0.9-1.1) APTT (21.0-31.0) Seconds PTT Ratio VBG pH (7.36-7.41) VBG pCO2 (38-50) mmHg VBG pO2 mmHg VBG HCO3 mmol/L VBG O2 Saturation % VBG Base Excess mEq/L Sodium 127 L (136-145) mmol/L Potassium 4.2 (3.5-5.1) mmol/L Chloride 97 L (98-107) mmol/L Carbon Dioxide 19 L (21-32) mmol/L Anion Gap 11 (3-11) BUN 15 (6-23) mg/dl Creatinine 0.76 (0.6-1.4) mg/dl Est Cr Clr Drug Dosing 87.4 ml/min Est GFR ( Amer) 105.6 ml/min Est GFR (Non-Af Amer) 91.1 ml/min BUN/Creatinine Ratio 19.7 (10-20) Glucose 104 H (70-99(Fasting)) mg/dl Calcium 8.8 (8.6-10.3) mg/dl Magnesium 1.8 (1.7-2.4) mg/dl Total Bilirubin 0.5 (0.2-1.0) mg/dl AST 95 H (13-39) U/L ALT 26 (7-52) U/L Alkaline Phosphatase 171 H (34-104) U/L Troponin I High Sens 11.9 (0-20) pg/ml Total Protein 6.8 (6.0-8.3) gm/dl Albumin 3.0 L (3.4-5.0) gm/dl Globulin 3.8 (2.5-4.0) gm/dl Albumin/Globulin Ratio 0.8 L (0.9-2) Procalcitonin Cancelled SARS-CoV-2, RNA, NAAT (NEGATIVE) 01/05/23 01/05/23 01/05/23 Range/Units 16:51 17:12 19:17 WBC (4.8-10.8) K/ul RBC (4.70-6.10) M/uL Hgb (14.0-18.0) g/dl Hct (42.0-52.0) % MCV (80.0-100.0) fL MCH (25.0-34.0) pg MCHC (32.0-36.0) g/dL RDW Std Deviation (36.4-46.3) fL RDW Coeff of Abby (11.5-14.5) % Plt Count (130-400) K/uL MPV (9.4-12.4) fL Immature Gran % (Auto) % Neut % (Auto) % Lymph % (Auto) % [place] % (Auto) % Eos % (Auto) % Baso % (Auto) % Neut # (Auto) (1.40-6.50) K/uL Lymph # (Auto) (1.2-3.4) K/uL [place] # (Auto) (0.11-0.59) K/uL Eos # (Auto) (0-0.50) K/uL Baso # (Auto) (0-0.2) K/uL Immature Gran # (Auto) (0.01-0.20) K/uL PT 14.7 H (9.0-12.0) Seconds INR 1.4 H (0.9-1.1) APTT 29.8 (21.0-31.0) Seconds PTT Ratio 1.1 VBG pH 7.39 (7.36-7.41) VBG pCO2 28 L (38-50) mmHg VBG pO2 68 mmHg VBG HCO3 17 mmol/L VBG O2 Saturation 95.0 % VBG Base Excess -6.6 mEq/L Sodium (136-145) mmol/L Potassium (3.5-5.1) mmol/L Chloride (98-107) mmol/L Carbon Dioxide (21-32) mmol/L Anion Gap (3-11) BUN (6-23) mg/dl Creatinine (0.6-1.4) mg/dl Est Cr Clr Drug Dosing ml/min Est GFR ( Amer) ml/min Est GFR (Non-Af Amer) ml/min BUN/Creatinine Ratio (10-20) Glucose (70-99(Fasting)) mg/dl Calcium (8.6-10.3) mg/dl Magnesium (1.7-2.4) mg/dl Total Bilirubin (0.2-1.0) mg/dl AST (13-39) U/L ALT (7-52) U/L Alkaline Phosphatase (34-104) U/L Troponin I High Sens (0-20) pg/ml Total Protein (6.0-8.3) gm/dl Albumin (3.4-5.0) gm/dl Globulin (2.5-4.0) gm/dl Albumin/Globulin Ratio (0.9-2) Procalcitonin SARS-CoV-2, RNA, NAAT NEGATIVE (NEGATIVE) Administered Medications Acetaminophen/Codeine Phosphate (Acetaminophen W/Codeine #3 1 Tab) 2 tab PO TID [facility] Stop: 02/04/23 21:59 Last Admin: 01/05/23 22:34 Dose: 2 tab Documented By: SHERIDAN Al Hydrox/Mg Hydrox/Simethicone (Aluminum/Magnesium/Simeth (Maalox Max) 30 Ml Udc) 30 ml PO TID [facility] Stop: 02/04/23 21:59 Last Admin: 01/05/23 22:34 Dose: 30 ml Documented By: SHERIDAN Docusate Calcium (Docusate Calcium 240 Mg Capsule) 240 mg PO BID [facility] Stop: 02/04/23 21:59 Last Admin: 01/05/23 22:35 Dose: 240 mg Documented By: SHERIDAN Cefepime HCl 2,000 mg/ Syringe 20 mls @ 5 mls/min IV Q8H [facility]; Protocol Stop: 01/12/23 21:59 Last Admin: 01/05/23 22:34 Dose: 5 mls/min Documented By: SHERIDAN Doxycycline Hyclate 100 mg/ (Dextrose) 110 mls @ 55 mls/hr IV NOW [facility] Stop: 01/05/23 23:09 Last Admin: 01/05/23 22:34 Dose: 55 mls/hr Documented By: SHERIDAN Methylprednisolone 40 mg/ (Syringe) 0.64 mls @ 1.5 mls/min IV Q8H [facility] Stop: 02/04/23 21:59 Last Admin: 01/05/23 22:34 Dose: 1.5 mls/min Documented By: SHERIDAN Mirtazapine (Mirtazapine Soltab 15 Mg) 45 mg PO HS [facility] Stop: 02/04/23 21:59 Last Admin: 01/05/23 22:34 Dose: 45 mg Documented By: SHERIDAN Quetiapine Fumarate (Quetiapine Fumarate 100 Mg Tablet) 100 mg PO HS [facility] Stop: 02/04/23 21:59 Last Admin: 01/05/23 22:35 Dose: 100 mg Documented By: SHERIDAN Discontinued Medications Albuterol (Albut/Ipratrop 3mg/0.5mg Neb 3 Ml Vial) 6 ml INH NOW [facility] Stop: 01/05/23 16:28 Last Admin: 01/05/23 16:40 Dose: 6 ml Documented By: AMS Sodium Chloride (Nss 1000ml) 1,000 mls @ 999 mls/hr IV .Q1H1M [facility] Stop: 01/05/23 17:30 Last Infusion: 01/05/23 17:48 Dose: 0 mls/hr Documented By: Admin: 01/05/23 16:41 Dose: 999 mls/hr Documented By: AMS Magnesium Sulfate/Dextrose (Magnesium Sulfate / D5w) 1 gm in 100 mls @ 100 mls/hr IV Q1H [facility] Stop: 01/05/23 18:29 Last Infusion: 01/05/23 18:42 Dose: 0 mls/hr Documented By: Admin: 01/05/23 17:49 Dose: 100 mls/hr Documented By: Infusion: 01/05/23 17:48 Dose: 0 mls/hr Documented By: Admin: 01/05/23 16:41 Dose: 100 mls/hr Documented By: AMS Sodium Chloride (Nss 1000ml) 1,000 mls @ 999 mls/hr IV .Q1H1M ONE Stop: 01/05/23 18:54 Last Infusion: 01/05/23 21:04 Dose: 0 mls/hr Documented By: Admin: 01/05/23 19:08 Dose: 999 mls/hr Documented By: QGV Magnesium Sulfate/Dextrose (Magnesium Sulfate / D5w) 1 gm in 100 mls @ 300 mls/hr IV ONCE ONE Stop: 01/05/23 18:14 Last Infusion: 01/05/23 21:04 Dose: 0 mls/hr Documented By: Admin: 01/05/23 19:08 Dose: 300 mls/hr Documented By: QGV Ioversol (Optiray 320 500ml) 111 ml IV ONCE ONE Stop: 01/05/23 18:40 Last Admin: 01/05/23 18:40 Dose: 111 ml Documented By: JHONY Levalbuterol HCl (Levalbuterol 1.25 Mg/3 Ml Neb) 1.25 mg NEB NOW STA; Protocol Stop: 01/05/23 17:55 Last Admin: 01/05/23 19:07 Dose: 1.25 mg Documented By: QGV Methylprednisolone (Methylprednisolone 125 Mg/2 Ml Vial) 125 mg IV NOW ST[facility] Stop: 01/05/23 16:28 Last Admin: 01/05/23 16:40 Dose: 125 mg Documented By: AMS Imaging Data Radiologist's Impression: Chest CTA 01/05/23 16:28 CT angio chest PE protocol CLINICAL HISTORY: Dyspnea, malignancy, hemoptysis TECHNIQUE: Multidetector row helical CT of the chest was performed with angiographic protocol. Coronal and sagittal reformations were obtained. Coronal and sagittal MIPS were obtained from the axial data set and were submitted for review. Automated dose lowering techniques and/or adjustment according to patient size were utilized for this exam. Comparison: Comparison is made to CT chest 12/03/2022 FINDINGS: Lungs and pleura: Interval development of extensive opacities throughout the lungs and extensive nodular densities and interlobular septal thickening. Heart and pericardium: There is a small pericardial effusion. Vessels: No evidence of pulmonary embolism. Mediastinum and ambrose: Multiple mediastinal nodes are seen, overall similar in s ize to prior exam. Chest wall and lower neck: Unremarkable. Abdomen: Hepatic metastatic disease is seen, possibly slightly more prominent than the prior exam. Rodrigo hepatis and retroperitoneal lymph nodes are seen, minimally enlarged from prior exam. Rodrigo hepatis node measures up to 26 mm compared to 23 mm in prior exam, retroperitoneal node measures 16 mm compared to prior exam. Bones: Unremarkable. IMPRESSION: Interval worsening of metastatic disease including in the lungs with innumerable nodules and lymphangitic spread as well as in the visualized abdominal lymph nodes. Mesenteric lymph nodes are approximately stable. Hepatic metastases are not well seen but likely progressed. ACT 112: Negative or not required by law. Electronically signed by: Robert Hooker M.D. 01/05/2023 7:28 PM Chest X-Ray 01/05/23 16:28 SINGLE VIEW CHEST CLINICAL HISTORY: Dyspnea. Hypoxia FINDINGS: 2 AP, portable, upright chest radiographs are compared to study dated 12/06/2022 and correlated with chest CT dated 12/03/2022. There is mediastinal and hilar lymphadenopathy. The heart is top normal in size. Emphysematous changes similar to previous. There is increasing bilateral airspace consolidation and diffuse interstitial thickening when compared to 12/06/2022. No large pleural effusion or pneumothorax is seen. The skeletal structures are osteopenic. The bony thorax is grossly intact. IMPRESSION: 1. Multifocal airspace consolidation and diffuse interstitial thickening has increased when compared to 12/06/2022. This could represent pulmonary edema and/or multifocal pneumonia, possibly superimposed on chronic lung disease or lympha ngitic spread of tumor. Clinical correlation will be essential. 2. Emphysema. 3. Mediastinal and hilar lymphadenopathy. 4. No large pleural effusion is identified. ACT 112: Negative or not required by law. Electronically signed by: Hugo Fry M.D. 01/05/2023 4:50 PM Discharge Plan Visit Data Chief Complaint: Shortness of Breath/Dyspnea ED Provider: Gokul Rubi Discharge Problem: Acute on chronic respiratory failure with hypoxia, COPD (chronic obstructive pulmonary disease), SOB (shortness of breath), Lung cancer, Acute hyponatremia Patient Disposition: Admitted As Inpatient Discharge Instructions Interventions: ED Discharge Assessment Last Done: 01/05/23 21:03
[2023-01-05] MEDS ORDERED: ALBUT/IPRATROP 3MG/0.5MG NEB 3 ML VIAL INH STA (16:27)
[2023-01-05] MEDS ORDERED: methylPREDNISolone 125 MG/2 ML VIAL IV STA (16:27)
[2023-01-05] MEDS ORDERED: SODIUM CHLORIDE 0.9% 1000ML 1,000 ML IV SCH (16:30)
[2023-01-05] MEDS: MAGNESIUM SULFATE / D5W 1 GM/100 ML BAG IV SCH ×2 (16:41→17:49)
--- NOTE | 2023-01-05 16:52 | XRay Report ---
SINGLE VIEW CHEST CLINICAL HISTORY: Dyspnea. Hypoxia FINDINGS: 2 AP, portable, upright chest radiographs are compared to study dated 12/06/2022 and correlat ed with chest CT dated 12/03/2022. There is mediastinal and hilar lymphadenopathy. The heart is top nor mal in size. Emphysematous changes similar to previous. There is increasing bilateral airspace consol idation and diffuse interstitial thickening when compared to 12/06/2022. No large pleural effusion or p neumothorax is seen. The skeletal structures are osteopenic. The bony thorax is grossly intact. IMPRESSION: 1. Multifocal airspace consolidation and diffuse interstitial thickening has increased when compared to 12/06/2022. This could represent pulmonary edema and/or multifocal pneumonia, possibly superimposed on chronic lung disease or lymphangitic spread of tumor. Clinical correlation will be essential. 2. Emphysema. 3. Mediastinal and hilar lymphadenopathy. 4. No large pleural effusion is identified. ACT 112: Negative or not required by law. Electronically signed by: Hugo Fry M.D. 01/05/2023 4:50 PM
[2023-01-05 17:13] LABS: Basophils # (auto) 0.09 K/uL (0-0.2); Basophils % (auto) 0.8 %; Eosinophils # (auto) 0.12 K/uL (0-0.50); Eosinophils % (auto) 1.1 %; Hematocrit (blood only) 32.5 % (42.0-52.0); Immature Granulocytes # (auto) 0.15 K/uL (0.01-0.20); Immature Granulocytes % (auto) 1.4 %; Lymphocytes # (auto) 1.56 K/uL (1.2-3.4); Lymphocytes % (auto) 14.1 %; Mean Corpuscular Hemoglobin 26.9 pg (25.0-34.0); Mean Corpuscular Hgb Conc 33.8 g/dL (32.0-36.0); Mean Corpuscular Volume 79.5 fL (80.0-100.0); Mean Platelet Volume 9.3 fL (9.4-12.4); Monocytes # (auto) 0.99 K/uL (0.11-0.59); Neutrophils # (auto) 8.14 K/uL (1.40-6.50); Neutrophils % (auto) 73.6 %; Platelet Count 610 K/uL (130-400); RDW Coefficient of Variation 15.5 % (11.5-14.5); RDW Standard Deviation 44.3 fL (36.4-46.3); Red Blood Count 4.09 M/uL (4.70-6.10); White Blood Count 11.05 K/ul (4.8-10.8)
[2023-01-05 17:33] LABS: Albumin Globulin Ratio 0.8 (0.9-2); BUN Creatinine Ratio 19.7 (10-20); Bilirubin,Total 0.5 mg/dl (0.2-1.0); Calcium 8.8 mg/dl (8.6-10.3); Creatinine Clr Calc Pharmacy 87.4 ml/min; Est GFR (African American) 105.6 ml/min; Est GFR (Non-African American) 91.1 ml/min; Globulin 3.8 gm/dl (2.5-4.0); Magnesium 1.8 mg/dl (1.7-2.4); Potassium 4.2 mmol/L (3.5-5.1); Total Protein 6.8 gm/dl (6.0-8.3)
[2023-01-05 17:37] LABS: Troponin I High Sensitivity 11.9 pg/ml (0-20)
[2023-01-05] MEDS ORDERED: SODIUM CHLORIDE 0.9% 1000ML 1,000 ML IV ONE (17:54)
[2023-01-05] MEDS ORDERED: LEVALBUTEROL 1.25 MG/3 ML NEB NEB STA (17:54)
[2023-01-05] MEDS ORDERED: MAGNESIUM SULFATE / D5W 1 GM/100 ML BAG IV ONE (17:55)
[2023-01-05 17:58] LABS: INR 1.4 (0.9-1.1); Partial Thromboplastin Ratio 1.1; Partial Thromboplastin Time 29.8 Seconds (21.0-31.0); Prothrombin Time 14.7 Seconds (9.0-12.0)
[2023-01-05] MEDS ORDERED: OPTIRAY 320 500ml IV ONE (18:39)
[2023-01-05 19:30] LABS: Base Excess VBG -6.6 mEq/L; HCO3 VBG 17 mmol/L; PCO2 VBG 28 mmHg (38-50); PO2 VBG 68 mmHg; pH VBG 7.39 (7.36-7.41)
--- NOTE | 2023-01-05 19:30 | CT Scan Report ---
CT angio chest PE protocol CLINICAL HISTORY: Dyspnea, malignancy, hemoptysis TECHNIQUE: Multidetector row helical CT of the chest was performed with angiographic protocol. Davis l and sagittal reformations were obtained. Coronal and sagittal MIPS were obtained from the axial jigna a set and were submitted for review. Automated dose lowering techniques and/or adjustment according to patient size were utilized for this exam. Comparison: Comparison is made to CT chest 12/03/2022 FINDINGS: Lungs and pleura: Interval development of extensive opacities throughout the lungs and extensive nodu lar densities and interlobular septal thickening. Heart and pericardium: There is a small pericardial effusion. Vessels: No evidence of pulmonary embolism. Mediastinum and ambrose: Multiple mediastinal nodes are seen, overall similar in size to prior exam. Chest wall and lower neck: Unremarkable. Abdomen: Hepatic metastatic disease is seen, possibly slightly more prominent than the prior exam. Po rta hepatis and retroperitoneal lymph nodes are seen, minimally enlarged from prior exam. Rodrigo hepat is node measures up to 26 mm compared to 23 mm in prior exam, retroperitoneal node measures 16 mm com pared to prior exam. Bones: Unremarkable. IMPRESSION: Interval worsening of metastatic disease including in the lungs with innumerable nodules and lymphang itic spread as well as in the visualized abdominal lymph nodes. Mesenteric lymph nodes are approximat marco a stable. Hepatic metastases are not well seen but likely progressed. ACT 112: Negative or not required by law. Electronically signed by: Robert Hooker M.D. 01/05/2023 7:28 PM
--- NOTE | 2023-01-05 20:31 | History & Physical Report ---
Date of Service January 05, 2023 Assessment & Plan (1) Acute on chronic respiratory failure with hypoxia: Plan: Long history of smoking with COPD and recently diagnosed non-small cell cancer of the lung with metastasis Has been on 5 L of oxygen as an outpatient and was admitted with increasing shortness of breath with desaturation Has been requiring 7 or more liters of oxygen to maintain saturation We will continue with nebulized bronchodilators History of atrial tachycardia Atrial fibrillation was ruled out during last admission EKG shows accelerated junctional rhythm with premature supraventricular complexes We will repeat EKG in the morning (2) Pneumonia: Plan: Increasing opacity in the right lung cannot rule out pneumonia with history of [place] phlegm and hemoptysis Will start with intravenous antibiotic with cefepime and doxycycline Blood cultures will be taken Hemoptysis To have blood tinged sputum Will not give any pharmacologic anticoagulation for now We will monitor (3) COPD (chronic obstructive pulmonary disease): Plan: Started with intravenous Solu-Medrol and will continue with nebulized bronchodilator (4) Acute hyponatremia: Plan: Noted to have sodium of 127 Sodium was 137 on 12/09/2022 Likely secondary to SIADH We will decrease fluid intake to 1500 mL Monitor PRP-if no improvement will need to have belly roller involved (5) Non-small cell lung cancer: Plan: Recently diagnosed non-small cell cancer of the lung with metastasis CTA did not show-Interval worsening of metastatic disease including in the lungs with innumerable nodules and lymphangitic spread as well as in the visualized abdominal lymph nodes. Mesenteric lymph nodes are approximately stable. Hepatic metastases are not well seen but likely progressed. Was evaluated by wood window and door craftsman/oncologist during last admission and the patient admits to see the oncologist about 3 days back (6) Depression with anxiety: Plan: We will continue current management (7) HTN (hypertension): Plan DVT prophylaxis SCDs for now If there is no hemoptysis can have Lovenox or heparin History of Present Illness Chief Complaint: Increasing shortness of breath for the last 2 weeks Primary Care Provider: ALEXA Kitchen 72-year-old male with significant past medical history of hypertension, hyperlipidemia, depression and anxiety, asthma, history of your long smoking and alcohol abuse with recently diagnosed non-small cell cancer of the lung apparently has been complaining of increasing shortness of breath for the last 2 weeks. He was in the hospital recently from 12/03/2022 to 12/09/2022 and at that time he was diagnosed to have small cell cancer of the lung and he mentioned that he saw oncologist as an outpatient about 3 or 4 days back. According to the patient no medications and/or test were performed. He has been on 5 L of oxygen on discharge and now requiring 7 L to maintain saturation. He has cough with [place] phlegm and noted to have blood-tinged in that phlegm. He has some pain right lower chest wall/abdominal wall and feels nauseous without any vomiting. He also complains to have feeling of warmth without any sweating and remained afebrile in the emergency room. CTA of the chest showed worsening metastatic disease without any evidence of pulmonary embolism. Chest x-ray did not show diffuse interstitial thickening and increased when compared with 12/06/2022. Pneumonia cannot be excluded He was started with intravenous antibiotic, intravenous Solu-Medrol and bronchodilators and was admitted to telemetry unit for continuation of care Allergies Allergy/AdvReac Type Severity Reaction Status Date / Time No Known Allergies Allergy Verified 01/05/23 17:51 Home Medications Medication Instructions Recorded Confirmed Type albuterol sulfate 90 mcg/actuation 2 puff inhalation QID PRN 12/03/22 01/05/23 History aerosol inhaler Shortness Of Breath aspirin 81 mg chewable tablet 81 mg PO QAM 12/03/22 01/05/23 History (Children's Aspirin) atorvastatin 40 mg tablet 40 mg PO QAM 12/03/22 01/05/23 History mirtazapine 45 mg tablet 45 mg PO HS 12/03/22 01/05/23 History montelukast 10 mg tablet 10 mg PO QAM 12/03/22 01/05/23 History quetiapine 100 mg tablet 100 mg PO HS 12/03/22 01/05/23 History polyethylene glycol 3350 17 gram 17 g PO DAILY PRN constipation #10 12/09/22 01/05/23 Rx oral powder packet (Miralax) ea D5 %-0.45 % sodium chloride 1,000 ml IV DAILY 01/05/23 01/05/23 History acetaminophen 300 mg-codeine 30 mg 2 tab PO TID 01/05/23 01/05/23 History tablet aluminum-mag hydroxide-simethicone 30 ml PO TID 01/05/23 01/05/23 History 200 mg-200 mg-20 mg/5 mL oral susp (Jackie-Lanta) docusate sodium 250 mg capsule 250 mg PO BID 01/05/23 01/05/23 History fentanyl 50 mcg/hr transdermal 1 patch transdermal Q72H 01/05/23 01/05/23 History patch fluticasone fur. 200 mcg-umeclid 1 inh inhalation QAM 01/05/23 01/05/23 History 62.5 mcg-vilant 25 mcg inhalat.powder (Trelegy Ellipta) food supplemt, lactose-reduced 1 ea PO TID 01/05/23 01/05/23 History (Ensure oral liquid) ipratropium 0.5 mg-albuterol 3 mg 3 ml inhalation QID PRN Shortness 01/05/23 01/05/23 History (2.5 mg base)/3 mL nebulization Of Breath soln omeprazole 40 mg capsule,delayed 40 mg PO QAM 01/05/23 01/05/23 History release ondansetron 4 mg disintegrating 4 mg PO QID PRN NAUSEA/VOMITING 01/05/23 3 History tablet Past Med/Surg History Medical History (Updated 01/05/23 @ 23:09 by Gokul Rubi MD) Asthma Depression with anxiety HCV (hepatitis C virus) History of alcohol abuse History of drug use History of tobacco abuse HLD (hyperlipidemia) HTN (hypertension) Surgical History Hx of cardiac cath pt states no stents were placed Family History Other Unknown family medical history Social History Smoking Status: Never smoker Hx Alcohol Use: No Hx Substance Use: No Preferred Language: Uzbek Communication Ability: Effective Communication Ability Comment: unable to read or write in bulgarian Hvac Service Manager Required: No Beliefs That Will Affect Care: None Current Living Situation: Other Current Living Situation Comment: From [facility] Feels Safe at Home: Yes Assistive Devices: Glasses Review of Systems Review of Systems: All systems reviewed & are unremarkable except as noted in HPI & below Physical Exam Physical Exam: Lying in bed with moderate shortness of breath Constitutional: + ill appearing and average body habitus Eyes: PERRL, conjunctivae normal, anicteric sclerae ENMT: external ear and nose normal, oropharynx normal Neck: trachea midline, no thyromegaly Respiratory: + respiratory distress (Moderate shortness of breath at rest), + labored breathing, + retractions, + cough and + tachypneic Auscultation: + diminished lung sounds and + crackles (More on the right than the left side) Cardiovascular: Rate/Rhythm: regular rate and regular rhythm; not tachycardic Heart Sounds: normal S1 and normal S2; no murmur Extremities: no edema Gastrointestinal (Abdomen): Inspection/Auscultation: normal bowel sounds; abdomen not distended Percussion/Palpation: + abdomen tender (Mildly tender right side) and abdomen soft Musculoskeletal: No acute arthritis involving any joint Neurologic: normal touch/pain/proprioception and moves all extremities; no focal motor deficits Lymphatic: no cervical or axillary lymphadenopathy Results & Data Results & Data Vital Signs (Past 12 Hours) Vital Signs Temp Pulse Pulse Resp BP BP Pulse Ox 01/05/23 19:14 91 H 22 115/72 94 01/05/23 18:01 117 H 01/05/23 17:15 93 H 20 100/66 92 01/05/23 16:28 93 01/05/23 16:39 80 01/05/23 15:22 90 01/05/23 15:22 36.7 C 99 H 22 100/67 90 01/05/23 15:22 36.7 C 99 H 22 100/67 90 O2 Del Method O2 Flow Rate 01/05/23 19:14 Aerosol Mask 01/05/23 18:01 01/05/23 17:15 Nasal Cannula 5 01/05/23 16:28 Aerosol Mask 01/05/23 16:39 01/05/23 15:22 Nasal Cannula 7 01/05/23 15:22 Nasal Cannula 7 01/05/23 15:22 Nasal Cannula 7 Laboratory Results Short CBC 01/05/23 Range/Units 15:30 WBC 11.05 H (4.8-10.8) K/ul Hgb 11.0 L (14.0-18.0) g/dl Hct 32.5 L (42.0-52.0) % Plt Count 610 H (130-400) K/uL BMP 01/05/23 15:30 Sodium 127 L Potassium 4.2 Chloride 97 L Carbon Dioxide 19 L BUN 15 Creatinine 0.76 Glucose 104 H Calcium 8.8 Liver Function 01/05/23 Range/Units 15:30 Total Bilirubin 0.5 (0.2-1.0) mg/dl AST 95 H (13-39) U/L ALT 26 (7-52) U/L Alkaline Phosphatase 171 H (34-104) U/L Albumin 3.0 L (3.4-5.0) gm/dl Code Status & VTE Plan VTE Prophylaxis Plan VTE Prophylaxis will be ordered: Yes (2) Pneumonia Laterality: right Lung location: unspecified part of lung Pneumonia type: due to unspecified organism Qualified Code(s): J18.9 - Pneumonia, unspecified organism
[2023-01-05] MEDS ORDERED: DOXYCYCLINE HYCLATE 100 MG in DEXTROSE 5% 100 ML IV STA (21:10)
[2023-01-05] MEDS ORDERED: CEFEPIME 20 ML IV STA (21:10)
[2023-01-05] MEDS ORDERED: NON-FORMULARY MEDICATION (Food Supplemt, Lactose-Reduced [Ensure] Liquid) PO SCH (21:37)
[2023-01-05] MEDS ORDERED: POLYETHYLENE (MIRALAX) 17 GM PACK PO PRN (21:37)
[2023-01-05] MEDS ORDERED: ONDANSETRON 4 MG OD TAB PO PRN (21:37)
[2023-01-05] MEDS ORDERED: ALBUT/IPRATROP 3MG/0.5MG NEB 3 ML VIAL INH PRN (21:37)
[2023-01-05] MEDS ORDERED: ALBUTEROL HFA 8 GM INHALER INH PRN (21:37)
[2023-01-05] MEDS ORDERED: CEFEPIME 2,000 MG in SYRINGE 0 ML IV SCH (22:00)
[2023-01-05] MEDS: MIRTAZAPINE SOLTAB 15 MG PO SCH (22:34)
[2023-01-05] MEDS: methylPREDNISolone 40 MG in SYRINGE 0 ML IV SCH (22:34)
[2023-01-05] MEDS: ALUMINUM/MAGNESIUM/SIMETH (MAALOX MAX) 30 ML UDC PO SCH (22:34)
[2023-01-05] MEDS: ACETAMINOPHEN W/CODEINE #3 1 TAB PO SCH (22:34)
[2023-01-05] MEDS: DOCUSATE CALCIUM 240 MG CAPSULE PO SCH (22:35)
[2023-01-05] MEDS: QUEtiapine FUMARATE 100 MG TABLET PO SCH (22:35)
[2023-01-05 23:46] LABS: Base Excess ABG -4.4 mEq/L (-9-1.8); HCO3 ABG 19 mmol/L (19-24); Oxygen Saturation ABG 99.4 % (90-95); PCO2 ABG 29 mmHg (35-46); PO2 ABG 85 mmHg (80-95); pH ABG 7.42 (7.35-7.45)
[2023-01-05] MEDS: CHECK fentaNYL PATCH PLACEMENT SCH (23:47)
[2023-01-06] LABS: Allen Test Pos (Pos)
--- NOTE | 2023-01-06 00:35 | Communication Note ---
Date of Service: January 06, 2023 SBP noted to be 90s as per RN Lactic acid noted to be 3.4 AP Severe sepsis SIRS plus lactic acidosis secondary to HCAP (recent confinement)/possible aspir ation given emesis symptoms as per ER provider note Change Cefepime to Zosyn Continue doxycycline follow lactic acid acid response to IVF
[2023-01-06] MEDS: ALBUMIN 25% 25 GM/100 ML VIAL IV SCH ×3 (00:36→05:05)
[2023-01-06] MEDS ORDERED: PIPERACILLIN/TAZOBACTAM 4.5 GM in DEXTROSE 5% 100 ML IV STA (00:42)
[2023-01-06] MEDS ORDERED: SODIUM CHLORIDE 0.9% 1000ML 1,000 ML IV ONE ×2 (03:47→09:00)
[2023-01-06 04:24] LABS: Urine Chloride < 15 mmol/L; Urine Potassium 17.2 mmol/L; Urine Sodium < 10 mmol/L
[2023-01-06 04:27] LABS: Basophils # (auto) 0.02 K/uL (0-0.2); Basophils % (auto) 0.2 %; Hematocrit (blood only) 28.9 % (42.0-52.0); Hemoglobin 9.6 g/dl (14.0-18.0); Immature Granulocytes # (auto) 0.12 K/uL (0.01-0.20); Immature Granulocytes % (auto) 1.3 %; Lymphocytes # (auto) 0.85 K/uL (1.2-3.4); Lymphocytes % (auto) 9.4 %; Mean Corpuscular Hemoglobin 26.4 pg (25.0-34.0); Mean Corpuscular Hgb Conc 33.2 g/dL (32.0-36.0); Mean Corpuscular Volume 79.6 fL (80.0-100.0); Mean Platelet Volume 8.9 fL (9.4-12.4); Monocytes % (auto) 2.2 %; Neutrophils % (auto) 86.9 %; Platelet Count 478 K/uL (130-400); RDW Coefficient of Variation 15.1 % (11.5-14.5); RDW Standard Deviation 43.8 fL (36.4-46.3); Red Blood Count 3.63 M/uL (4.70-6.10); White Blood Count 9.09 K/ul (4.8-10.8)
[2023-01-06 04:42] LABS: Albumin Globulin Ratio 0.9 (0.9-2); Albumin Level 3.3 gm/dl (3.4-5.0); BUN Creatinine Ratio 17.6 (10-20); Bilirubin,Total 0.6 mg/dl (0.2-1.0); Calcium 8.8 mg/dl (8.6-10.3); Creatinine Clr Calc Pharmacy 88.9 ml/min; Est GFR (African American) 106.8 ml/min; Est GFR (Non-African American) 92.2 ml/min; Globulin 3.5 gm/dl (2.5-4.0); Magnesium 2.5 mg/dl (1.7-2.4); Phosphorus 4.3 mg/dl (2.5-4.9); Potassium 4.4 mmol/L (3.5-5.1); Total Protein 6.8 gm/dl (6.0-8.3)
[2023-01-06] MEDS: PIPERACILLIN/TAZOBACTAM 4.5 GM in DEXTROSE 5% 100 ML IV SCH ×3 (06:04→20:59)
[2023-01-06] MEDS: methylPREDNISolone 40 MG in SYRINGE 0 ML IV SCH ×3 (06:04→21:00)
--- NOTE | 2023-01-06 08:25 | Pulmonary Consultation ---
Date of Consultation January 06, 2023 Assessment & Plan (1) Acute on chronic respiratory failure with hypoxia: (2) Metastatic primary lung cancer: (3) Goals of care, counseling/discussion: Plan 72-year-old male with advanced metastatic malignancy of lung primary. He has a severe diffusion impairment due to lymphangitic spread of lung cancer. He is requiring high amounts of high flow oxygen. We had a lengthy discussion regarding his goals of care and he indicates that he would not want us to pursue ACLS measures if he were in a situation where he had a cardiac or pulmonary arrest. The patient will be transition to DNR/DNI. We will consult with palliative care and oncology to discuss further care moving forward. In the meantime, we will continue with empiric IV steroids and broad-spectrum antibiotics. His prognosis remains very poor and it is unclear whether he will survive this hospital stay. Thank you for allowing me to participate in the care of this patient. We will continue to follow with you. History of Present Illness Reason for Consultation: Hypoxemic respiratory failure Attending Physician: Sadaf San MD History of Present Illness 72-year-old male with history of hypertension, hyperlipidemia, depression and anxiety who was diagnosed with lung cancer on EBUS last month while inpatient. He was ultimately discharged during his last visit on 5 L of oxygen. He is now requiring high flow Vapotherm at an FiO2 of 90%. He is short of breath with minimal exertion. He is receiving Zosyn and doxycycline. He is also on methylprednisone 40 mg, 3 times daily. He had a mild lactic acidosis on initial presentation. He had also had LFT derangements. Unfortunately his chest CTA from 01/05/2023 reveals interval worsening of metastatic disease in the lungs with lymphangitic spread. There is also evidence of mesenteric lymph node metastases with possible hepatic metast ases. He denies any dyspnea at rest, but he has severe dyspnea with minimal movement. He also has significant desaturations even on high flow oxygen. Allergies Allergy/AdvReac Type Severity Reaction Status Date / Time No Known Allergies Allergy Verified 01/05/23 17:51 Home Medications Medication Instructions Recorded Confirmed Type albuterol sulfate 90 mcg/actuation 2 puff inhalation QID PRN 12/03/22 01/05/23 History aerosol inhaler Shortness Of Breath aspirin 81 mg chewable tablet 81 mg PO QAM 12/03/22 01/05/23 History (Children's Aspirin) atorvastatin 40 mg tablet 40 mg PO QAM 12/03/22 01/05/23 History mirtazapine 45 mg tablet 45 mg PO HS 12/03/22 01/05/23 History montelukast 10 mg tablet 10 mg PO QAM 12/03/22 01/05/23 History quetiapine 100 mg tablet 100 mg PO HS 12/03/22 01/05/23 History polyethylene glycol 3350 17 gram 17 g PO DAILY PRN constipation #10 12/09/22 01/05/23 Rx oral powder packet (Miralax) ea D5 %-0.45 % sodium chloride 1,000 ml IV DAILY 01/05/23 01/05/23 History acetaminophen 300 mg-codeine 30 mg 2 tab PO TID 01/05/23 01/05/23 History tablet aluminum-mag hydroxide-simethicone 30 ml PO TID 01/05/23 01/05/23 History 200 mg-200 mg-20 mg/5 mL oral susp (Jackie-Lanta) docusate sodium 250 mg capsule 250 mg PO BID 01/05/23 01/05/23 History fentanyl 50 mcg/hr transdermal 1 patch transdermal Q72H 01/05/23 01/05/23 History patch fluticasone fur. 200 mcg-umeclid 1 inh inhalation QAM 01/05/23 01/05/23 History 62.5 mcg-vilant 25 mcg inhalat.powder (Trelegy Ellipta) food supplemt, lactose-reduced 1 ea PO TID 01/05/23 01/05/23 History (Ensure oral liquid) ipratropium 0.5 mg-albuterol 3 mg 3 ml inhalation QID PRN Shortness 01/05/23 01/05/23 History (2.5 mg base)/3 mL nebulization Of Breath soln omeprazole 40 mg capsule,delayed 40 mg PO QAM 01/05/23 01/05/23 History release ondansetron 4 mg disintegrating 4 mg PO QID PRN NAUSEA/VOMITING 01/05/23 01/05/23 History tablet Patient History Medical History (Updated 01/06/23 @ 08:45 by Mu Lopez MD) Asthma Depression with anxiety Goals of care, counseling/discussion HCV (hepatitis C virus) History of alcohol abuse History of drug use History of tobacco abuse HLD (hyperlipidemia) HTN (hypertension) Metastatic primary lung cancer Surgical History Hx of cardiac cath pt states no stents were placed Family History Other Unknown family medical history Social History Smoking Status: Never smoker Tobacco Cessation Education Requested by Patient: No Hx Alcohol Use: No Hx Substance Use: No Preferred Language: Lithuanian Communication Ability: Effective Communication Ability Comment: unable to read or write in tajik Offshore Wind Turbine Technician Required: No Beliefs That Will Affect Care: None Current Living Situation: Other Current Living Situation Comment: From [facility] Feels Safe at Home: Yes Assistive Devices: Glasses Review of Systems Review of Systems: All systems reviewed & are unremarkable except as noted in HPI & below Physical Exam Physical Exam: Constitutional: Patient appears to be of their stated age. Patient is in no apparent distress. Patient is well-developed. Eyes: Pupils are equal round and reactive to light. Conjunctivae are normal. Anicteric sclera. Ears nose, mouth and throat: Mallampati class 2. Normal posterior oropharynx. Uvula is midline. Neck: Trachea is midline. Visual inspection is normal. Respiratory: Diminished bilaterally with mild crackles in the upper lobes. Cardiovascular: Regular rate and rhythm. No murmurs. No edema. Gastrointestinal: Normal bowel sounds, soft, nontender and nondistended. No hepatosplenomegaly noted. Musculoskeletal: No cyanosis. Patient is able to move all extremities. Strength is 5 out of 5 in the upper and lower extremities. Skin: No rashes, warm dry and intact. Neurologic: No obvious focal neurological deficits seen. Psychiatric: Alert and oriented x3 with a euthymic affect. Results & Data Results & Data Vital Signs (Past 12 Hours) Vital Signs Temp Pulse Pulse Resp BP BP Pulse Ox 01/06/23 04:00 132 H 20 90 01/06/23 04:00 94/69 L 01/06/23 02:00 78 18 92 01/06/23 00:00 83 20 94 01/06/23 00:00 91/66 L 01/06/23 04:25 36.8 C 06/06/23 23:17 72 01/05/23 22:30 74 19 91 01/05/23 22:00 75 19 90 01/05/23 22:00 93/67 L 01/05/23 21:45 80 18 91 01/05/23 21:40 01/05/23 21:20 36.4 C L 96 H 26 H 102/77 91 O2 Del Method O2 Flow Rate 01/06/23 04:00 Oxymask 15 01/06/23 04:00 01/06/23 02:00 01/06/23 00:00 01/06/23 00:00 01/06/23 04:25 01/05/23 23:17 01/05/23 22:30 01/05/23 22:00 01/05/23 22:00 01/05/23 21:45 Oxymask 15 01/05/23 21:40 Oxymask 15 01/05/23 21:20 Oxyhood 13 PG Care Time/CCT Total # of Minutes Spent Total Time Spent with Patient: Total time spent is greater than 50% in coordination of care (as documented) at patient's floor/unit and/or counseling patient: Coding Level of Care Code 97975 IN/OBS CONSULT LVL 4,60M Diagnoses Acute on chronic respiratory failure with hypoxia J96.21 Metastatic primary lung cancer C34.90 Goals of care, counseling/discussion Z71.89
[2023-01-06] MEDS: ACETAMINOPHEN W/CODEINE #3 1 TAB PO SCH ×3 (08:46→20:19)
[2023-01-06] MEDS: ATORVASTATIN 40 MG TAB PO SCH (08:47)
[2023-01-06] MEDS: ALUMINUM/MAGNESIUM/SIMETH (MAALOX MAX) 30 ML UDC PO SCH ×3 (08:47→20:16)
[2023-01-06] MEDS: CHECK fentaNYL PATCH PLACEMENT SCH ×2 (08:47→13:38)
[2023-01-06] MEDS: DOCUSATE CALCIUM 240 MG CAPSULE PO SCH ×2 (08:47→20:19)
[2023-01-06] MEDS: UMECLIDINIUM/VILANTEROL 62.5/25MCG 7 PUFFS/INHALER INH SCH (08:47)
[2023-01-06] MEDS: FLUTICASONE FUROATE 200MCG 14 PUFFS/INHALER INH SCH (08:47)
[2023-01-06] MEDS: MONTELUKAST SODIUM 10 MG TABLET PO SCH (08:47)
[2023-01-06] MEDS: PANTOprazole 40 MG TAB PO SCH (08:47)
[2023-01-06] MEDS: DOXYCYCLINE HYCLATE 100 MG in DEXTROSE 5% 100 ML IV SCH ×2 (08:48→20:59)
[2023-01-06] MEDS ORDERED: NON-FORMULARY MEDICATION (Fluticasone-Umeclidin-Vilanter [Trelegy Ellipta] 200-62.5-25 mcg INH SCH (09:00)
--- NOTE | 2023-01-06 09:37 | Palliative Care Consultation ---
Date of Consultation January 06, 2023 Assessment & Plan (1) Palliative care by specialist: Met with pt/family. Provided overview of Palliative Medicine, a subspecialty that provides specialized medical care for people living with a serious illness by offering a focus on quality of life. We discussed that cancer patients experience significant symptom and psychosocial burden for which the early integration of supportive oncology with palliative medicine (early findings from the research of Looc and Max) help address a growing need to manage patients comprehensively, with an emphasis on symptom control, nutritional and psychosocial support, and pharmaceutical review. Palliative care consultation in patients with advanced cancer is not only associated with an improvement in the quality of oncology care, but also a reduction in downstream healthcare utilization. In Sanju et al 2017, when the automatic palliative medicine consult was triggered by specific oncology criteria, 30-day readmission rates and use of chemotherapy after discharge declined, whereas hospice referrals and uptake of support services post-discharge increased. Patients with advanced cancer admitted to an acute care hospital often have short life expectancies and high morbidity - for these patients, the integration of palliative care has improved symptom burden, reduced patient and caregiver distress, increased referral to hospice, and improved outcomes. There is strong evidence supporting the initiation of Palliative Care into the management of patients with advanced met lung cancer; palliative care, when provided alongside oncologic care, leads to improved QOL, fewer depressive symptoms, better prognosis understanding and longer median survival debra when given the overall poor prognosis and QOL issues at hand. (Loco et al. (2010). Early palliative care for patients with metastatic trt-[id number]-[id number] lung cancer. [place] J of Med 363(8), 733-742. Doi: 10.1056/[id number].) Palliative Medicine is often conflated with hospice: I advised patient/family that Palliative and hospice can be partners but we are not the same. It is important to understand the difference so that we may be informed, and not afraid. Palliative Medicine works to improve QOL through reduction of symptom burden/more control over their illness, for both the patient and family. Palliative medicine clinicians are board certified, specially-trained and another member of the patient's medical care team. We often provide an extra layer of support because our care is based on the needs of the patient, not the prognosis; as such, it's appropriate at any age/advancing stage of a serious illness and can be provided along with curative treatment. Palliative Medicine clinicians are also trained in advanced communication methodologies, to facilitate complex discussions about advanced illness planning, which are needed to help assure that the treatment choices match the patient's goals, aka delivering Goal Concordant care. Finally, we discussed that hospice is a visiting nurse service that focuses on care delivered at the very end of life for patients with terminal illness, with life expectancy less than 6 month. (2) Advanced care planning/counseling discussion: We reviewed that all chronic/progressive disease has a declining trajectory over time where facets of patient self-identity and independence are lost. Every acute event leads to a further decline, resulting- many times, in a new baseline. Advised that the greatest priority is to determine what matters most to pt, then family and to develop a plan of care that is aligned with those priorities.Advance illness planning conversations are conducted to review goals and expectations, support shared decision-making, and engage in disease specific advance care planning. This type of advance care planning is sometimes referred to as 'preparedness planning. It is used to review the risks and benefits of offered therapy, elicit and deepen understanding of the underlying illness and therapeutic options, ensure adequate psychosocial support, address existential concerns and coping, and engage in end-of-life planning. Preparedness planning is not meant to replace informed consent discussions. Palliative medicine plays a role in the process of deepening a patients understanding of this specific medical intervention and ensuring this treatment aligns with their goals of care remains a central tenet of the planning conversation. Mr. Person felt he may have had curable cancer but with discussion today he understood this is a Stage IV metastatic lung ca which is not curable. He is aware he had a new Abtx started overnight and asks if we could see how he does with the change in next 24 hrs. We spoke about the high potential for acute worsening with resp or multi organ failure and what he wants for himself at that junction: he told me if it came to that point where he is getting worse while on this higher level support then he would want us to relieve his suffering/not let him suffocate and keep him comfortable. He is aware he would likely in hospital. He denies having any family/NOK to be notified. (3) Non-small cell lung cancer: (4) Acute on chronic respiratory failure with hypoxia: (5) Metastatic primary lung cancer: (6) COPD (chronic obstructive pulmonary disease): COPD type: COPD with acute exacerbation Qualified Code(s): J44.1 - Chronic obstructive pulmonary disease with (acute) exacerbation (7) Dyspnea and respiratory abnormalities: Plan I spoke with Dr. Stern/pt's oncology attending, earlier today: in their consultation he expressed wish to try cancer rx he could but also believed he has a curable cancer. Mr. Person and I spoke about how he has an advanced Stage IV metastatic lung cancer, which is incurable. The cancer rx intent is to help buy some time. We also discussed current infection status/sepsis and respiratory failure with high flow limits us from administering cancer rx for now. I advised his lung function or other organ systems may progressively worsen given the overall complexity of advanced cancer and his pre existing issues. I asked him what he would want if he was not getting better and he said he would want us to keep him comfortable. He is not ready for comfort care today but he tells me he now has a better understanding that time may be limited. I did advise him of my concern he may not survive this admission as well, to which he slowly nodded in understanding and became tearful. Since he started a new Abtx overnight, he wants to see how he is doing tomorrow but if he acutely worsens at any time this admission, he wants to be kept comfortable and meds given to relieve any symptom, distress etc. He is very clear about the fear of suffocating to and would want medication to feel calm and comfortable. Both guards were present for the discussion. Patient indicates he does not have any family or NOK that could be notified or updated. He did not have anyone he wanted me to call. He also declined swimming instructor. I updated ICU teams, primary service and oncology attending Dr Stern. Thank you for allowing us to participate in the ongoing care of this patient. Please don't hesitate to call or page with any additional concerns. Dr. Marie Soriano DNP Director, Palliative Care History of Present Illness Reason for Consultation: end stage lung ca Attending Physician: Sadaf San MD History of Present Illness Mr. Person is a 72yo male from [place] with hx of longstanding, smoking related COPD and recently diagnosed non-small cell cancer of the lung with metastasis who was brought to [facility] for worsening dyspnea. He is on 5lpm O2 at baseline and at time of presentation was requiring 7lpm NC. +hemoptysis. He is now requiring high flow Vapotherm at an FiO2 of 90%. He is short of breath with minimal exertion in ED, the CTA of the chest showed worsening metastatic disease without any evidence of pulmonary embolism. Chest x-ray did not show diffuse interstitial thickening and increased when compared with 12/06/2022. Pneumonia cannot be excluded found to be acutely hyponatremia like SIADH tumor related +Afib/chronic CXR demonstrated increasing right lung opacification patient has elected DNR/DNI PMH: hypertension, hyperlipidemia, depression, anxiety, asthma, smoking, ETOH abuse, recently diagnosed non-small cell cancer of the /Stage IV Recent admission 12/03/22 to 12/09/22, during which time he was seen by med onc 12/09 as inpatient and noted treatment otin would be palliative intent chemoimmunotherapy utilizing carboplatin, paclitaxel and pembrolizumab to be given every 3 weeks for total of 4-6 cycles followed by maintenance pembrolizumab. Pulm consult and Bronchoscopy/EBUS with biopsy performed on 12/04/2022 revealed carcinoma with prominent nucleoli and no distinct squamous or glandular differentiation, negative for squamous, lung adenocarcinoma and neuroendocrine markers consistent with non-small cell carcinoma, not otherwise specified. Abdominal ultrasound on 12/03/2022 also revealed multiple hepatic masses measuring up to 2.8 cm consistent with metastatic disease. Brain MRI on 12/04/2022 revealed no evidence to suggest intracranial metastatic disease. He has Stage IV met NSCLC Acute worsening overnight with SBP noted to be 90s and elevated lactic acid of 3.4, confirming new dx of severe sepsis due to SIRS + lactic acidosis 2/2 HCAP/?aspiration - cefepime changed to zosyn, additional IVF given pt is seen bedside, 2 correction officers are present he is wearing high flow oxygen at 90% he has some increased resp effort but denies acute distress he admits to some pain along right flank to mid axillary region Allergies Allergy/AdvReac Type Severity Reaction Status Date / Time No Known Allergies Allergy Verified 01/05/23 17:51 Home Medications Medication Instructions Recorded Confirmed Type albuterol sulfate 90 mcg/actuation 2 puff inhalation QID PRN 12/03/22 01/05/23 History aerosol inhaler Shortness Of Breath aspirin 81 mg chewable tablet 81 mg PO QAM 12/03/22 01/05/23 History (Children's Aspirin) atorvastatin 40 mg tablet 40 mg PO QAM 12/03/22 01/05/23 History mirtazapine 45 mg tablet 45 mg PO HS 12/03/22 01/05/23 History montelukast 10 mg tablet 10 mg PO QAM 12/03/22 01/05/23 History quetiapine 100 mg tablet 100 mg PO HS 12/03/22 01/05/23 History polyethylene glycol 3350 17 gram 17 g PO DAILY PRN constipation #10 12/09/22 01/05/23 Rx oral powder packet (Miralax) ea D5 %-0.45 % sodium chloride 1,000 ml IV DAILY 01/05/23 01/05/23 History acetaminophen 300 mg-codeine 30 mg 2 tab PO TID 01/05/23 01/05/23 History tablet aluminum-mag hydroxide-simethicone 30 ml PO TID 01/05/23 01/05/23 History 200 mg-200 mg-20 mg/5 mL oral susp (Jackie-Lanta) docusate sodium 250 mg capsule 250 mg PO BID 01/05/23 01/05/23 History fentanyl 50 mcg/hr transdermal 1 patch transdermal Q72H 01/05/23 01/05/23 History patch fluticasone fur. 200 mcg-umeclid 1 inh inhalation QAM 01/05/23 01/05/23 History 62.5 mcg-vilant 25 mcg inhalat.powder (Trelegy Ellipta) food supplemt, lactose-reduced 1 ea PO TID 01/05/23 01/05/23 History (Ensure oral liquid) ipratropium 0.5 mg-albuterol 3 mg 3 ml inhalation QID PRN Shortness 01/05/23 01/05/23 History (2.5 mg base)/3 mL nebulization Of Breath soln omeprazole 40 mg capsule,delayed 40 mg PO QAM 01/05/23 01/05/23 History release ondansetron 4 mg disintegrating 4 mg PO QID PRN NAUSEA/VOMITING 01/05/23 01/05/23 History tablet Patient History Medical History (Updated 01/06/23 @ 09:34 by Marie Soriano DNP) Advanced care planning/counseling discussion Asthma Depression with anxiety Dyspnea and respiratory abnormalities Goals of care, counseling/discussion HCV (hepatitis C virus) History of alcohol abuse History of drug use History of tobacco abuse HLD (hyperlipidemia) HTN (hypertension) Metastatic primary lung cancer Palliative care by specialist Surgical History Hx of cardiac cath pt states no stents were placed Family History Other Unknown family medical history Social History Smoking Status: Never smoker Tobacco Cessation Education Requested by Patient: No Hx Alcohol Use: No Hx Substance Use: No Preferred Language: Persian Communication Ability: Unable Communication Ability Comment: unable to read or write in canadian Hose Cementer Required: No Beliefs That Will Affect Care: None Current Living Situation: Other Current Living Situation Comment: From [facility] Feels Safe at Home: Yes Assistive Devices: None Review of Systems Review of Systems: All systems reviewed & are unremarkable except as noted in Subjective Physical Exam Physical Exam: Lying in bed, 2 officers present +resp distress, +use of accessory muscles High flow oxygen at FiO2 90%, SPO2 ranging 90-94% Limited anterior exam, +rhonchi, diminished no stridor dentition poor neck supple abd softly distended Generalized weakness Skin pale/warm AAOx3, following commands Results & Data Vital Signs (Past 12 Hours) Vital Signs Temp Pulse Resp BP Pulse Ox O2 Del Method O2 Flow Rate 01/06/23 04:00 132 H 20 90 Oxymask 15 01/06/23 04:00 94/69 L 01/06/23 02:00 78 18 92 01/06/23 00:00 83 20 94 01/06/23 00:00 91/66 L 01/06/23 04:25 36.8 C 01/05/23 23:17 72 01/05/23 22:30 74 19 91 01/05/23 22:00 75 19 90 01/05/23 22:00 93/67 L 01/05/23 21:45 80 18 91 Oxymask 15 01/05/23 21:40 Oxymask 15 Laboratory Results data reviewed, see HPI Diagnostic Findings data reviewed, see HPI PG Care Time/CCT Total # of Minutes Spent Total Time Spent: 80 Total Time Spent with Patient: Total time spent is greater than 50% in coordination of care (as documented) at patient's floor/unit and/or counseling patient: I spent 80 minutes overall addressing this case: 10 in medical data review/discussion with referring provider(s) and/or preparation for the visit 20 in direct interaction with the patient 30 of above 45min w/pt was spent on Advance Care Planning/Goals of Care discussions as detailed above in note (must be >16min) 10 in subsequent review and synthesis of assessment and plan 10 in communicating with other providers regarding the patient's case: [] [place] [address] IN/OBS CONSULT LVL 5,80M Patient Type New History Comprehensive Exam Comprehensive Medical Decision Making High Complexity Diagnoses Palliative care by specialist Z51.5 Advanced care planning/counseling discussion Z71.89 Non-small cell lung cancer C34.90 Acute on chronic respiratory failure with hypoxia J96.21 Metastatic primary lung cancer C34.90 COPD (chronic obstructive pulmonary disease) J44.1 COPD type: COPD with acute exacerbation Dyspnea and respiratory abnormalities R06.00; R06.89
--- NOTE | 2023-01-06 14:31 | Hospitalist Progress Note ---
Date of Service January 06, 2023 Assessment & Plan (1) Acute on chronic respiratory failure with hypoxia: (2) Non-small cell lung cancer: (3) COPD (chronic obstructive pulmonary disease): (4) Pneumonia: Plan: Long history of smoking with COPD and recently diagnosed non-small cell cancer of the lung with metastasis Has been on 5 L of oxygen as an outpatient and was admitted with increasing shortness of breath with desaturation Recently diagnosed non-small cell cancer of the lung with metastasis CTA did not show-Interval worsening of metastatic disease including in the lungs with innumerable nodules and lymphangitic spread as well as in the visualized abdominal lymph nodes. Mesenteric lymph nodes are approximately stable. Hepatic metastases are not well seen but likely progressed. Was evaluated by electronic typesetting machine operator/oncologist during last admission and the patient admits to see the oncologist about 3 days back Patient's clinical status is more due to progression of lung malignancy Elevated lactate likely due to hepatic mets. However, infectious process is also a possibility in addition to his malignancy Continue broad spectrum antibiotics Pulm evaluation noted I discussed poor prognosis with patient. He acknowledged he has had con versations with Biological Science Aide and Palliative Care earlier today He confirmed he wants to be DNR/DNI. He wants to see how he does. Not ready for comfort care only at this time Currently on HFNC. Continue resp support Continue solumedrol, inhalers History of atrial tachycardia Atrial fibrillation was ruled out during last admission EKG shows accelerated junctional rhythm with premature supraventricular complexes (5) Acute hyponatremia: Plan: Noted to have sodium of 127 Sodium was 137 on 12/09/2022 Na improved today to 129 Continue to monitor (6) Depression with anxiety: Plan: Continue current management Plan DVT prophylaxis SCDs for now Pharm agent on hold for now in view of reported hemoptysis I spent a total of 50 minutes coordinating, documenting and providing care for this patient excluding time spent in performance of separately billed services Admission and Anticipated Discharge Date Admission Date: January 05, 2023 Subjective Patient seen and examined Reports increasing shortness of breath with activity, cough Reported some hemoptysis prior to presentation Reports right sided trunk pain from abdomen to chest wall. States that this is better now Denied any headache, dizziness Reports weakness, anorexia Physical Exam Constitutional: + well hydrated; no acute distress Eyes: PERRL, conjunctivae normal, anicteric sclerae ENMT: external ear and nose normal, oropharynx normal Respiratory: On HFNC, +Crackles. Diminished breath sounds Cardiovascular: Rate/Rhythm: regular rate and regular rhythm S1 S2 Gastrointestinal (Abdomen): normal bowel sounds, soft, nontender, no hepatosplenomegaly Musculoskeletal: No pedal edema Neurologic: PERRL, EOMI, accommodation nl, no face palsy, no dysarthria Psychiatric: A+Ox3, euthymic affect Results & Data Results & Data Vital Signs (Past 12 Hours) Vital Signs Temp Pulse Pulse Resp BP Pulse Ox O2 Del Method 01/06/23 12:00 69 14 94 01/06/23 12:00 94/59 L 01/06/23 11:00 67 16 94 01/06/23 12:30 36.5 C 01/06/23 10:00 74 17 94 01/06/23 08:00 81 16 91 01/06/23 08:00 113/77 01/06/23 07:00 80 22 90 01/06/23 08:00 High Flow Nasal Cannula 01/06/23 10:12 High Flow Nasal Cannula 01/06/23 10:26 70 24 92 High Flow Nasal Cannula 01/06/23 07:55 79 24 91 High Flow Nasal Cannula 01/06/23 04:00 132 H 20 90 Oxymask 01/06/23 04:00 94/69 L 01/06/23 04:25 36.8 C O2 Flow Rate FiO2 01/06/23 12:00 01/06/23 12:00 01/06/23 11:00 01/06/23 12:30 01/06/23 10:00 01/06/23 08:00 01/06/23 08:00 01/06/23 07:00 01/06/23 08:00 35 90 01/06/23 10:12 01/06/23 10:26 35 90 01/06/23 07:55 35 90 01/06/23 04:00 15 01/06/23 04:00 01/06/23 04:25 Laboratory Results Abnormal lab results 01/05/23 01/05/23 01/05/23 Range/Units 15:30 15:30 17:12 WBC 11.05 H (4.8-10.8) K/ul RBC 4.09 L (4.70-6.10) M/uL Hgb 11.0 L (14.0-18.0) g/dl Hct 32.5 L (42.0-52.0) % MCV 79.5 L (80.0-100.0) fL RDW Coeff of Abby 15.5 H (11.5-14.5) % Plt Count 610 H (130-400) K/uL MPV 9.3 L (9.4-12.4) fL Neut # (Auto) 8.14 H (1.40-6.50) K/uL Lymph # (Auto) (1.2-3.4) K/uL [place] # (Auto) 0.99 H (0.11-0.59) K/uL PT 14.7 H (9.0-12.0) Seconds INR 1.4 H (0.9-1.1) ABG pCO2 (35-46) mmHg ABG O2 Saturation (90-95) % VBG pCO2 (38-50) mmHg Sodium 127 L (136-145) mmol/L Chloride 97 L (98-107) mmol/L Carbon Dioxide 19 L (21-32) mmol/L Glucose 104 H (70-99(Fasting)) mg/dl Osmolality (280-300) mOsm/kg Lactate (0.4-2.0) mmol/L Magnesium (1.7-2.4) mg/dl AST 95 H (13-39) U/L Alkaline Phosphatase 171 H (34-104) U/L Albumin 3.0 L (3.4-5.0) gm/dl Albumin/Globulin Ratio 0.8 L (0.9-2) Procalcitonin (0-0.5) ng/ml Urine Osmolality (500-800) mOsm/kg 01/05/23 01/05/23 01/05/23 Range/Units 19:17 20:47 20:47 WBC (4.8-10.8) K/ul RBC (4.70-6.10) M/uL Hgb (14.0-18.0) g/dl Hct (42.0-52.0) % MCV (80.0-100.0) fL RDW Coeff of Abby (11.5-14.5) % Plt Count (130-400) K/uL MPV (9.4-12.4) fL Neut # (Auto) (1.40-6.50) K/uL Lymph # (Auto) (1.2-3.4) K/uL [place] # (Auto) (0.11-0.59) K/uL PT (9.0-12.0) Seconds INR (0.9-1.1) ABG pCO2 (35-46) mmHg ABG O2 Saturation (90-95) % VBG pCO2 28 L (38-50) mmHg Sodium (136-145) mmol/L Chloride (98-107) mmol/L Carbon Dioxide (21-32) mmol/L Glucose (70-99(Fasting)) mg/dl Osmolality 273 L (280-300) mOsm/kg Lactate (0.4-2.0) mmol/L Magnesium (1.7-2.4) mg/dl AST (13-39) U/L Alkaline Phosphatase (34-104) U/L Albumin (3.4-5.0) gm/dl Albumin/Globulin Ratio (0.9-2) Procalcitonin 0.67 H (0-0.5) ng/ml Urine Osmolality (500-800) mOsm/kg 01/05/23 01/05/23 01/06/23 Range/Units 23:38 23:38 03:50 WBC (4.8-10.8) K/ul RBC (4.70-6.10) M/uL Hgb (14.0-18.0) g/dl Hct (42.0-52.0) % MCV (80.0-100.0) fL RDW Coeff of Abby (11.5-14.5) % Plt Count (130-400) K/uL MPV (9.4-12.4) fL Neut # (Auto) (1.40-6.50) K/uL Lymph # (Auto) (1.2-3.4) K/uL [place] # (Auto) (0.11-0.59) K/uL PT (9.0-12.0) Seconds INR (0.9-1.1) ABG pCO2 29 L (35-46) mmHg ABG O2 Saturation 99.4 H (90-95) % VBG pCO2 (38-50) mmHg Sodium (136-145) mmol/L Chloride (98-107) mmol/L Carbon Dioxide (21-32) mmol/L Glucose (70-99(Fasting)) mg/dl Osmolality (280-300) mOsm/kg Lactate 3.4 H* (0.4-2.0) mmol/L Magnesium (1.7-2.4) mg/dl AST (13-39) U/L Alkaline Phosphatase (34-104) U/L Albumin (3.4-5.0) gm/dl Albumin/Globulin Ratio (0.9-2) Procalcitonin (0-0.5) ng/ml Urine Osmolality 236 L (500-800) mOsm/kg 01/06/23 01/06/23 01/06/23 Range/Units 04:03 04:03 04:08 WBC (4.8-10.8) K/ul RBC 3.63 L (4.70-6.10) M/uL Hgb 9.6 L (14.0-18.0) g/dl Hct 28.9 L (42.0-52.0) % MCV 79.6 L (80.0-100.0) fL RDW Coeff of Abby 15.1 H (11.5-14.5) % Plt Count 478 H (130-400) K/uL MPV 8.9 L (9.4-12.4) fL Neut # (Auto) 7.90 H (1.40-6.50) K/uL Lymph # (Auto) 0.85 L (1.2-3.4) K/uL [place] # (Auto) (0.11-0.59) K/uL PT (9.0-12.0) Seconds INR (0.9-1.1) ABG pCO2 (35-46) mmHg ABG O2 Saturation (90-95) % VBG pCO2 (38-50) mmHg Sodium 129 L (136-145) mmol/L Chloride (98-107) mmol/L Carbon Dioxide 18 L (21-32) mmol/L Glucose 135 H (70-99(Fasting)) mg/dl Osmolality (280-300) mOsm/kg Lactate 3.0 H* (0.4-2.0) mmol/L Magnesium 2.5 H (1.7-2.4) mg/dl AST 80 H (13-39) U/L Alkaline Phosphatase 149 H (34-104) U/L Albumin 3.3 L (3.4-5.0) gm/dl Albumin/Globulin Ratio (0.9-2) Procalcitonin (0-0.5) ng/ml Urine Osmolality (500-800) mOsm/kg 01/06/23 Range/Units 08:07 WBC (4.8-10.8) K/ul RBC (4.70-6.10) M/uL Hgb (14.0-18.0) g/dl Hct (42.0-52.0) % MCV (80.0-100.0) fL RDW Coeff of Abby (11.5-14.5) % Plt Count (130-400) K/uL MPV (9.4-12.4) fL Neut # (Auto) (1.40-6.50) K/uL Lymph # (Auto) (1.2-3.4) K/uL [place] # (Auto) (0.11-0.59) K/uL PT (9.0-12.0) Seconds INR (0.9-1.1) ABG pCO2 (35-46) mmHg ABG O2 Saturation (90-95) % VBG pCO2 (38-50) mmHg Sodium (136-145) mmol/L Chloride (98-107) mmol/L Carbon Dioxide (21-32) mmol/L Glucose (70-99(Fasting)) mg/dl Osmolality (280-300) mOsm/kg Lactate 2.8 H* (0.4-2.0) mmol/L Magnesium (1.7-2.4) mg/dl AST (13-39) U/L Alkaline Phosphatase (34-104) U/L Albumin (3.4-5.0) gm/dl Albumin/Globulin Ratio (0.9-2) Procalcitonin (0-0.5) ng/ml Urine Osmolality (500-800) mOsm/kg (3) COPD (chronic obstructive pulmonary disease) COPD type: COPD with acute exacerbation Qualified Code(s): J44.1 - Chronic obstructive pulmonary disease with (acute) exacerbation (4) Pneumonia Laterality: right Lung location: unspecified part of lung Pneumonia type: due to unspecified organism Qualified Code(s): J18.9 - Pneumonia, unspecified organism
--- NOTE | 2023-01-06 18:10 | Oncology Consultation ---
Date of Consultation January 06, 2023 Assessment & Plan (1) Non-small cell lung cancer: (2) Acute on chronic respiratory failure with hypoxia: Plan Patient recently diagnosed with metastatic non-small cell lung cancer with NGS negative for PD-L1 expression any actionable mutations who presented with hypoxemic respiratory failure due to progression of disease. He is currently on antibiotics for possible infection. Based on imaging, appears to have lymphangitic spread which is most likely the cause for acute respiratory failure. I had an extensive discussion with patient today. Explained to him that, overall prognosis is very poor given significant disease progression in less than 1 month as well as high supplemental oxygen requirement. He is also unlikely to benefit from inpatient chemotherapy in the setting of non-small cell malignancy. Explained to him that I would recommend he strongly consider supportive care/hospice especially if oxygen requirement does not improve over the next 24 hours with antibiotics History of Present Illness Reason for Consultation: Metastatic lung cancer Attending Physician: Sadaf San MD History of Present Illness Pleasant gentleman with significant smoking history, history of alcohol and drug use who Was recently diagnosed with stage IV non-small cell lung cancer. I had initially evaluated patient during his recent inpatient hospitalization at [facility] in early Nov, 2022. 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 Abdominal ultrasound on 12/03/2022 also revealed multiple hepatic masses measuring up to 2.8 cm consistent with metastatic disease. Brain MRI on 12/04/2022 revealed no evidence to suggest intracranial metastatic disease. Bronchoscopy/EBUS with biopsy performed on 12/04/2022 revealed carcinoma with prominent nucleoli and no distinct squamous or glandular differentiation, negative for squamous, lung adenocarcinoma and neuroendocrine markers consistent with non-small cell carcinoma, not otherwise specified. Next generation sequencing was negative for PD-L1 as well as any actionable mutation such as EG FR/ALK/BRAF/ROS/MET/RET mutations During his previous inpatient admission, I had discussed diagnosis with patient as well as prognosis. At that time, he had indicated that he would like to receive systemic therapy. He was scheduled for outpatient follow-up by the [facility] with me at [facility] on 01/14/2023. He however presented to the ED yesterday with worsening shortness of breath. CTA chest revealed interval worsening of metastatic disease in the lungs with innumerable nodules and lymphangitic spread.He was started on broad-spectrum antibiotics but has had increasing oxygen requirement and is currently on 80% FiO2 via high flow nasal cannula Allergies Allergy/AdvReac Type Severity Reaction Status Date / Time No Known Allergies Allergy Verified 01/05/23 17:51 Home Medications Medication Instructions Recorded Confirmed Type albuterol sulfate 90 mcg/actuation 2 puff inhalation QID PRN 12/03/22 01/05/23 History aerosol inhaler Shortness Of Breath aspirin 81 mg chewable tablet 81 mg PO QAM 12/03/22 01/05/23 History (Children's Aspirin) atorvastatin 40 mg tablet 40 mg PO QAM 12/03/22 01/05/23 History mirtazapine 45 mg tablet 45 mg PO HS 12/03/22 01/05/23 History montelukast 10 mg tablet 10 mg PO QAM 12/03/22 01/05/23 History quetiapine 100 mg tablet 100 mg PO HS 12/03/22 01/05/23 History polyethylene glycol 3350 17 gram 17 g PO DAILY PRN constipation #10 12/09/22 01/05/23 Rx oral powder packet (Miralax) ea D5 %-0.45 % sodium chloride 1,000 ml IV DAILY 01/05/23 01/05/23 History acetaminophen 300 mg-codeine 30 mg 2 tab PO TID 01/05/23 01/05/23 History tablet aluminum-mag hydroxide-simethicone 30 ml PO TID 01/05/23 01/05/23 History 200 mg-200 mg-20 mg/5 mL oral susp (Jackie-Lanta) docusate sodium 250 mg capsule 250 mg PO BID 01/05/23 01/05/23 History fentanyl 50 mcg/hr transdermal 1 patch transdermal Q72H 01/05/23 01/05/23 History patch fluticasone fur. 200 mcg-umeclid 1 inh inhalation QAM 01/05/23 01/05/23 History 62.5 mcg-vilant 25 mcg inhalat.powder (Trelegy Ellipta) food supplemt, lactose-reduced 1 ea PO TID 01/05/23 01/05/23 History (Ensure oral liquid) ipratropium 0.5 mg-albuterol 3 mg 3 ml inhalation QID PRN Shortness 01/05/23 01/05/23 History (2.5 mg base)/3 mL nebulization Of Breath soln omeprazole 40 mg capsule,delayed 40 mg PO QAM 01/05/23 01/05/23 History release ondansetron 4 mg disintegrating 4 mg PO QID PRN NAUSEA/VOMITING 01/05/23 01/05/23 History tablet Patient History Medical History (Updated 01/06/23 @ 09:34 by Marie Soriano DNP) Advanced care planning/counseling discussion Asthma Depression with anxiety Dyspnea and respiratory abnormalities Goals of care, counseling/discussion HCV (hepatitis C virus) History of alcohol abuse History of drug use History of tobacco abuse HLD (hyperlipidemia) HTN (hypertension) Metastatic primary lung cancer Palliative care by specialist Surgical History Hx of cardiac cath pt states no stents were placed Family History Other Unknown family medical history Social History Smoking Status: Never smoker Tobacco Cessation Education Requested by Patient: No Hx Alcohol Use: No Hx Substance Use: No Preferred Language: Swedish Communication Ability: Unable Communication Ability Comment: unable to read or write in british [place] island[place] Settlement Clerk Required: No Beliefs That Will Affect Care: None Current Living Situation: Other Current Living Situation Comment: From [facility] Feels Safe at Home: Yes Assistive Devices: None Results & Data Vital Signs (Past 12 Hours) Vital Signs Temp Pulse Pulse Resp BP Pulse Ox O2 Del Method 01/06/23 16:00 63 14 95 High Flow Nasal Cannula 01/06/23 16:00 104/66 01/06/23 16:16 36.6 C 01/06/23 14:00 64 18 94 01/06/23 15:23 69 01/06/23 14:43 79 20 94 High Flow Nasal Cannula 01/06/23 12:00 69 14 94 01/06/23 12:00 94/59 L 01/06/23 11:00 67 16 94 01/06/23 12:30 36.5 C 01/06/23 10:00 74 17 94 01/06/23 08:00 81 16 91 01/06/23 08:00 113/77 01/06/23 07:00 80 22 90 01/06/23 08:00 High Flow Nasal Cannula 01/06/23 10:12 High Flow Nasal Cannula 01/06/23 10:26 70 24 92 High Flow Nasal Cannula 01/06/23 07:55 79 24 91 High Flow Nasal Cannula O2 Flow Rate FiO2 01/06/23 16:00 35 80 01/06/23 16:00 01/06/23 16:16 01/06/23 14:00 01/06/23 15:23 01/06/23 14:43 35 90 01/06/23 12:00 01/06/23 12:00 01/06/23 11:00 01/06/23 12:30 01/06/23 10:00 01/06/23 08:00 01/06/23 08:00 01/06/23 07:00 01/06/23 08:00 35 90 01/06/23 10:12 01/06/23 10:26 35 90 01/06/23 07:55 35 90
[2023-01-06] MEDS: QUEtiapine FUMARATE 100 MG TABLET PO SCH (20:16)
[2023-01-06] MEDS: MIRTAZAPINE SOLTAB 15 MG PO SCH (20:16)
[2023-01-07] MEDS: PIPERACILLIN/TAZOBACTAM 4.5 GM in DEXTROSE 5% 100 ML IV SCH (06:03)
[2023-01-07] MEDS: methylPREDNISolone 40 MG in SYRINGE 0 ML IV SCH (06:03)
--- NOTE | 2023-01-07 06:08 | Electrocardiogram Report ---
Test Reason : Blood Pressure : / mmHG Vent. Rate : 094 BPM Atrial Rate : 094 BPM P-R Int : 194 ms QRS Dur : 094 ms QT Int : 360 ms P-R-T Axes : 034 -03 048 degrees QTc Int : 450 ms Normal sinus rhythm Normal ECG When compared with ECG of 03-DEC-2022 13:59, NE interval has decreased Confirmed by Festus Huerta ([id number]) on 01/07/2023 6:08:02 AM Referred By: Confirmed By:Festus Huerta
[2023-01-07 07:15] LABS: Hematocrit (blood only) 30.1 % (42.0-52.0); Hemoglobin 10.1 g/dl (14.0-18.0); Mean Corpuscular Hemoglobin 26.7 pg (25.0-34.0); Mean Corpuscular Hgb Conc 33.6 g/dL (32.0-36.0); Mean Corpuscular Volume 79.6 fL (80.0-100.0); Mean Platelet Volume 8.9 fL (9.4-12.4); Platelet Count 565 K/uL (130-400); RDW Coefficient of Variation 15.5 % (11.5-14.5); RDW Standard Deviation 44.8 fL (36.4-46.3); Red Blood Count 3.78 M/uL (4.70-6.10)
[2023-01-07 08:07] LABS: Albumin Level 3.2 gm/dl (3.4-5.0); Bilirubin,Total 0.6 mg/dl (0.2-1.0); Magnesium 2.2 mg/dl (1.7-2.4); Potassium 4.3 mmol/L (3.5-5.1)
[2023-01-07 08:13] LABS: BUN Creatinine Ratio 26.6 (10-20); Creatinine Clr Calc Pharmacy 82.9 ml/min; Est GFR (Non-African American) 89.7 ml/min; Globulin 3.3 gm/dl (2.5-4.0); Phosphorus 3.4 mg/dl (2.5-4.9); Total Protein 6.5 gm/dl (6.0-8.3)
--- NOTE | 2023-01-07 08:26 | Pulmonology Progress Note ---
Date of Service January 07, 2023 Assessment & Plan (1) Acute on chronic respiratory failure with hypoxia: (2) Metastatic primary lung cancer: (3) Goals of care, counseling/discussion: Plan 72-year-old male with advanced metastatic malignancy of the lung presenting with acute hypoxic respiratory failure likely secondary to to the malignancy process. Patient had an escalation in his oxygen requirement over the night. He complains of a painful cough as well as ongoing dyspnea. Multiple discussions were had yesterday with palliative care as well as oncology. Patient is a DNR/DNI. Given the patient's continued decline and tenuous respiratory status and in alignment with the patient's wishes, strong consideration should be given for comfort measures moving forward. In the interim, would continue with supplemental oxygen, steroids, and antibiotics. Unfortunately, I am concerned that this patient will not survive this hospitalization. Thankfully, interdisciplinary team has seemed to do a great job of communicating this to the patient. Thank you for allowing us to participate in the care of this patient. Pulmonary medicine will sign off at this time. Please feel free to reach out in the event of any questions or concerns. Admission and Anticipated Discharge Date Admission Date: January 05, 2023 Subjective Patient was seen and evaluated at bedside today. He reports pain when coughing. He reports feeling uncomfortable with his breathing. Review of Systems Review of Systems: Unchanged from prior. Physical Exam Physical Exam: VITAL SIGNS - Vital signs and nursing notes were reviewed. GENERAL - 72-year-old male who is in mild respiratory distress. LUNGS - Auscultation reveals rhonchi throughout. CARDIAC - RRR with S1/S2. No murmur, rubs, or gallops appreciated. ABDOMEN - BS normoactive all four quadrants. No tenderness, palpable masses, or ascites noted. Results & Data Results & Data Vital Signs (Past 12 Hours) Vital Signs Temp Pulse Resp BP Pulse Ox O2 Del Method O2 Flow Rate 01/07/23 07:32 36.6 C 113 H 24 129/81 85 L High Flow Nasal Cannula 85 01/07/23 07:11 84 18 96 High Flow Nasal Cannula 35 01/07/23 03:00 36.8 C 68 18 102/65 98 High Flow Nasal Cannula 01/07/23 02:39 65 18 96 High Flow Nasal Cannula 30 01/07/23 00:31 High Flow Nasal Cannula 30 01/07/23 00:25 36.3 C L 73 18 100/64 93 High Flow Nasal Cannula 30 01/06/23 23:30 17 92 High Flow Nasal Cannula 35 01/06/23 21:55 74 17 94 High Flow Nasal Cannula 35 FiO2 01/07/23 07:32 25 01/07/23 07:11 90 01/07/23 03:00 01/07/23 02:39 80 01/07/23 00:31 0.80 01/07/23 00:25 0.80 01/06/23 23:30 80 01/06/23 21:55 80 PG Care Time/CCT Total # of Minutes Spent Total Time Spent with Patient: Total time spent is greater than 50% in coordination of care (as documented) at patient's floor/unit and/or counseling patient: Coding Level of Care Code 46683 SUB INP/OBS CARE 3/50MIN Diagnoses Acute on chronic respiratory failure with hypoxia J96.21 Metastatic primary lung cancer C34.90 Goals of care, counseling/discussion Z71.89
[2023-01-07] MEDS: CHECK fentaNYL PATCH PLACEMENT SCH ×4 (09:01→23:23)
[2023-01-07] MEDS: MONTELUKAST SODIUM 10 MG TABLET PO SCH (09:02)
[2023-01-07] MEDS: ATORVASTATIN 40 MG TAB PO SCH (09:02)
[2023-01-07] MEDS: UMECLIDINIUM/VILANTEROL 62.5/25MCG 7 PUFFS/INHALER INH SCH (09:02)
[2023-01-07] MEDS: PANTOprazole 40 MG TAB PO SCH (09:02)
[2023-01-07] MEDS: FLUTICASONE FUROATE 200MCG 14 PUFFS/INHALER INH SCH (09:02)
[2023-01-07] MEDS: ALUMINUM/MAGNESIUM/SIMETH (MAALOX MAX) 30 ML UDC PO SCH ×4 (09:04→21:23)
[2023-01-07] MEDS: ACETAMINOPHEN W/CODEINE #3 1 TAB PO SCH ×2 (09:16→14:24)
[2023-01-07] MEDS: DOCUSATE CALCIUM 240 MG CAPSULE PO SCH ×2 (09:46→21:23)
[2023-01-07] MEDS: DOXYCYCLINE HYCLATE 100 MG in DEXTROSE 5% 100 ML IV SCH (10:26)
[2023-01-07] MEDS ORDERED: guaiFENesin SUGAR FREE 100 MG/5 ML UDC PO PRN (11:01)
--- NOTE | 2023-01-07 11:34 | Hospitalist Progress Note ---
Date of Service January 07, 2023 Assessment & Plan (1) Acute on chronic respiratory failure with hypoxia: (2) Non-small cell lung cancer: (3) COPD (chronic obstructive pulmonary disease): (4) Pneumonia: Plan: Long history of smoking with COPD and recently diagnosed non-small cell cancer of the lung with metastasis Has been on 5 L of oxygen as an outpatient and was admitted with increasing shortness of breath with desaturation Recently diagnosed non-small cell cancer of the lung with metastasis CTA did not show-Interval worsening of metastatic disease including in the lungs with innumerable nodules and lymphangitic spread as well as in the visualized abdominal lymph nodes. Mesenteric lymph nodes are approximately stable. Hepatic metastases are not well seen but likely progressed. Was evaluated by web production designer/oncologist during last admission and the patient admits to see the oncologist about 3 days back Patient's clinical status is more due to progression of lung malignancy Elevated lactate likely due to hepatic mets. Pulm evaluation noted I had more conversations with patient today about his grave prognosis He stated he thinks he is dying. He stated he will like to be kept comfortable Palliative specialist had further conversation with patient today and he asked to institute comfort measures only Comfort measures instituted per patient's wishes I called the correctional facility and spoke with the EDGE CUTTER at their health center. I updated her on patient's clinical status, decisions and plans. She reported that they are only able to do NC or NRB for patients and if patient is to be discharged back, they will need sometime to get the comfort measures meds needed. Will continue care inpatient for now and see how patient's condition progresses as he may not survive this (5) Acute hyponatremia: (6) Depression with anxiety: Plan I spent a total of 60 minutes coordinating, documenting and providing care for this patient excluding time spent in performance of separately billed services Admission and Anticipated Discharge Date Admission Date: January 05, 2023 Subjective Patient seen and examined Patient reports worsening shortness of breath Has cough with blood tinged sputum Reports severe weakness He acknowledges he is not feeling better and feels like he is suffocating sometimes Physical Exam Constitutional: + acute distress (In respiratory distress) and + well hydrated Eyes: PERRL, conjunctivae normal, anicteric sclerae ENMT: external ear and nose normal, oropharynx normal Respiratory: + respiratory distress and + labored breathing + crackles, diminished breath sounds On HFNC Cardiovascular: Rate/Rhythm: regular rate and regular rhythm S1 S2 Gastrointestinal (Abdomen): normal bowel sounds, soft, nontender, no he patosplenomegaly Musculoskeletal: No pedal edema Neurologic: PERRL, EOMI, accommodation nl, no face palsy, no dysarthria Psychiatric: A+Ox3, euthymic affect Results & Data Results & Data Vital Signs (Past 12 Hours) Vital Signs Temp Pulse Resp BP Pulse Ox O2 Del Method O2 Flow Rate 01/07/23 11:16 36.6 C 77 20 105/69 92 Nasal Cannula 80 01/07/23 11:23 78 18 95 High Flow Nasal Cannula 25 01/07/23 11:18 High Flow Nasal Cannula 25 01/07/23 07:32 36.6 C 113 H 24 129/81 85 L High Flow Nasal Cannula 85 01/07/23 07:11 84 18 96 High Flow Nasal Cannula 35 01/07/23 03:00 36.8 C 68 18 102/65 98 High Flow Nasal Cannula 01/07/23 02:39 65 18 96 High Flow Nasal Cannula 30 01/07/23 00:31 High Flow Nasal Cannula 30 01/07/23 00:25 36.3 C L 73 18 100/64 93 High Flow Nasal Cannula 30 FiO2 01/07/23 11:16 25 01/07/23 11:23 80 01/07/23 11:18 80 01/07/23 07:32 25 01/07/23 07:11 90 01/07/23 03:00 01/07/23 02:39 80 01/07/23 00:31 0.80 01/07/23 00:25 0.80 Laboratory Results Abnormal lab results 01/07/23 01/07/23 Range/Units 06:49 06:49 WBC 15.20 H (4.8-10.8) K/ul RBC 3.78 L (4.70-6.10) M/uL Hgb 10.1 L (14.0-18.0) g/dl Hct 30.1 L (42.0-52.0) % MCV 79.6 L (80.0-100.0) fL RDW Coeff of Abby 15.5 H (11.5-14.5) % Plt Count 565 H (130-400) K/uL MPV 8.9 L (9.4-12.4) fL Sodium 133 L (136-145) mmol/L BUN/Creatinine Ratio 26.6 H (10-20) Glucose 104 H (70-99(Fasting)) mg/dl AST 78 H (13-39) U/L Alkaline Phosphatase 165 H (34-104) U/L Albumin 3.2 L (3.4-5.0) gm/dl (3) COPD (chronic obstructive pulmonary disease) COPD type: COPD with acute exacerbation Qualified Code(s): J44.1 - Chronic obstructive pulmonary disease with (acute) exacerbation (4) Pneumonia Laterality: right Lung location: unspecified part of lung Pneumonia type: due to unspecified organism Qualified Code(s): J18.9 - Pneumonia, unspecified organism
[2023-01-07] MEDS ORDERED: HYDROmorphone INJ 0.5 MG/0.5 ML SYR IV PRN (12:09)
[2023-01-07] MEDS ORDERED: HYDROmorphone BOLUS from BAG IV PRN (12:14)
--- NOTE | 2023-01-07 12:14 | Palliative Care Progress Note ---
Date of Service January 07, 2023 Assessment & Plan (1) Palliative care by specialist: (2) Advanced care planning/counseling discussion: Plan: Met with pt at bedside, [facility] officers present x2. Mr Person and I discussed the worsening lung findings, changes on imaging and symptom progression. He has not substantially improved with current measures. He is more dyspneic and speaking in 2-3 word sentences with effort. He cannot tolerate any exertion without air hunger. He tells me "I don't think I have long to live, that is what I think." We explored his feeling on end of life. He fears suffocating from resp failure and dying in pain from cancer. I advised we will start a low dose Dilaudid infusion, stop fentanyl patch 50mcg q3days and use prn Dilaudid for relief of breakthrough symptoms. Once he is more comfortable we can begin de-escalating HFNC per protocol outlined below in Assessment #4/Dyspnea. Mr Person is in agreement for this approach. he understands he will not survive this admission. He asked how long he may have and I advised it is likely days, maybe a few weeks but the lung failure is significant and cancer is progressive/incurable. He was appropriately tearful but accepting. He notes feeling some measure of peace that he tried to get cancer therapy but his disease worsened too fast. He continues to deny having any NOK/friends or family to be updated. (3) Cancer related pain: Plan: Dilaudid infusion ordered (4) Dyspnea and respiratory abnormalities: Plan: HFNC needs have been variable. For now he is tolerating 20% and maybe able to move to 15% and perhaps eventually NC if symptom gt is controlled. Although the role of high flow oxygen via nasal cannula (HFNC) in patients with life-limiting respiratory illnesses is not well-defined, weaning high flow oxygen in a conscious and interactive patient at the end of life presents unique challenges but allows for meaningful life-closure moments. Recommended Protocol if HFNC weaning / de escalation is needed: * Provider, RN, and RT discuss plan * engage additional MDT as needed: social work, shredding machine operator, etc. * Stop monitors, ensure working IV * Pre-wean medications: Begin hydromorphone infusion, prn dose and Lorazepam 1mg IV * Consider Hydromorphone 0.5-1mg per hour infusion * Consider Hydromorphone 1mg IV Q10min prn air hunger * Four Down Titrations: Approximately 25% Reduction every 10-15 minutes (reduce FiO2 and liter flow) PATIENT TOLERATES. DO NOT MILLS THE PROCESS IF PATIENT IS EXHIBITING DISTRESS OR DISCOMFORT. USE PRN MEDS TO IMPROVE SYMPTOMS AND RELIEVE SUFFERING. - Medicate WITH PRE WEAN MEDS - Wait for 10 min for peak effect, decrease liter flow and FiO2 by 25% followed by immediate repeat bolusing - Wait 10 min then decrease liter flow and FiO2 by 25%, followed by immediate repeat bolusing - Give another Lorazepam 1mg IV bolus - Wait another 10 min then decrease liter flow and FiO2 by 25% followed by immediate repeat bolusing - Wait another 10 min then decrease liter flow and FiO2 by the final 25% followed by immediate repeat bolusing - Give another 1mg Lorazepam 1mg IV if needed * Observe for and treat symptoms * Provide anticipatory guidance/emotional support (5) Acute on chronic respiratory failure with hypoxia: (6) Metastatic primary lung cancer: (7) Non-small cell lung cancer: Plan * Comfort care orders written * HFNC de-escalation reviewed and protocol outlined above, reviewed with nursing - note that it may not be needed at this moment, pt is happy to utilize prn Dilaudid IV dose for now * I have reviewed case and spoken with primary team, nursing and case mgt * I was advised by CM that GIP is not an option for inmates in hospital * He will remain on comfort care status. [facility] oxygen is 5lpm NC or less. I am less sure they can offer infusional opioid support for the scope and intensity of his severe cancer related resp failure mgt. * I have updated primary team, nursing, care mgt and Dr Stern/oncology. Primary team advised they will update [facility] medical team. Thank you for allowing us to participate in the ongoing care of this patient. Please don't hesitate to call or page with any additional concerns. Dr. Marie Soriano DNP Director, Palliative Care Admission and Anticipated Discharge Date Admission Date: January 05, 2023 Subjective inc air hunger, conversational dyspnea weaker feeling effort of breathing more tells me he thinks he is going to soon feeling weak appetite declining cancer pain about the same, seems worse with resp distress sometimes Review of Systems Review of Systems: All systems reviewed & are unremarkable except as noted in Subjective Physical Exam Physical Exam: Lying in bed, 2 officers present +resp distress, +use of accessory muscles, +conversational dyspnea, +air hunger High flow oxygen Limited anterior exam, +diminished, coarse throughout no stridor, dentition poor; neck supple abd softly distended Generalized weakness Skin pale/warm AAOx3 Anxious/subdued mood, intermittently tearful Results & Data Vital Signs (Past 12 Hours) Vital Signs Temp Pulse Pulse Resp BP Pulse Ox O2 Del Method 01/07/23 08:00 89 01/07/23 11:16 36.6 C 77 20 105/69 92 Nasal Cannula 01/07/23 11:23 78 18 95 High Flow Nasal Cannula 01/07/23 11:18 High Flow Nasal Cannula 01/07/23 07:32 36.6 C 113 H 24 129/81 85 L High Flow Nasal Cannula 01/07/23 07:11 84 18 96 High Flow Nasal Cannula 01/07/23 03:00 36.8 C 68 18 102/65 98 High Flow Nasal Cannula 01/07/23 02:39 65 18 96 High Flow Nasal Cannula 01/07/23 00:31 High Flow Nasal Cannula 01/07/23 00:25 36.3 C L 73 18 100/64 93 High Flow Nasal Cannula O2 Flow Rate FiO2 01/07/23 08:00 01/07/23 11:16 80 25 01/07/23 11:23 25 80 01/07/23 11:18 25 80 01/07/23 07:32 85 25 01/07/23 07:11 35 90 01/07/23 03:00 01/07/23 02:39 30 80 01/07/23 00:31 30 0.80 01/07/23 00:25 30 0.80 Laboratory Results reviewed Diagnostic Findings reviewed PG Care Time/CCT Total # of Minutes Spent Total Time Spent: 78 Total Time Spent with Patient: Total time spent is greater than 50% in coordination of care (as documented) at patient's floor/unit and/or counseling patient: Advanced Care Planning 05267 Advanced Care Planning 30 Min [place] [address] SUB INP/OBS CARE 3/50MIN Patient Type Established History Comprehensive Exam Detailed Medical Decision Making High Complexity Diagnoses Palliative care by specialist Z51.5 Advanced care planning/counseling discussion Z71.89 Cancer related pain G89.3 Dyspnea and respiratory abnormalities R06.00; R06.89 Acute on chronic respiratory failure with hypoxia J96.21 Metastatic primary lung cancer C34.90 Non-small cell lung cancer C34.90 Additional Codes Advanced Care Planning - 39386 Advanced Care Planning 30 Min: 74432 Advanced Care Planning 30 Min ([id number])
[2023-01-07] MEDS ORDERED: fentaNYL 75 MCG/HR TDSY TD SCH (12:15)
[2023-01-07] MEDS ORDERED: HYDROmorphone/NSS 100 MG/100 ML BAG IV SCH (12:30)
[2023-01-07] MEDS ORDERED: fentaNYL 50 MCG/HR TDSY TD SCH (15:00)
[2023-01-07] MEDS: HYDROmorphone INJ 1 MG/ML SYRINGE IV PRN ×4 (15:22→23:23)
[2023-01-07] MEDS: LORazepam 2 MG/1 ML VIAL IV PRN ×2 (15:34→21:12)
[2023-01-07] MEDS ORDERED: CHECK fentaNYL PATCH PLACEMENT SCH (16:00)
[2023-01-07] MEDS: QUEtiapine FUMARATE 100 MG TABLET PO SCH (21:12)
[2023-01-07] MEDS: MIRTAZAPINE SOLTAB 15 MG PO SCH (21:12)
[2023-01-07] MEDS: GLYCOPYRROLATE 0.2 MG/ML VIAL IV PRN (23:23)
[2023-01-08] MEDS: HYDROmorphone INJ 1 MG/ML SYRINGE IV PRN ×8 (00:37→08:34)
[2023-01-08] MEDS: LORazepam 2 MG/1 ML VIAL IV PRN ×6 (01:47→20:29)
--- NOTE | 2023-01-08 05:00 | Electrocardiogram Report ---
Test Reason : Blood Pressure : / mmHG Vent. Rate : 114 BPM Atrial Rate : 000 BPM P-R Int : 000 ms QRS Dur : 084 ms QT Int : 338 ms P-R-T Axes : 000 019 051 degrees QTc Int : 465 ms Atrial fibrillation with rapid ventricular response Low voltage QRS Nonspecific T wave abnormality Abnormal ECG When compared with ECG of 05-JAN-2023 15:20, Atrial fibrillation has replaced Sinus rhythm Confirmed by Festus Huerta ([id number]) on 01/08/2023 5:00:22 AM Referred By: Fidelina LIU Confirmed By:Festus Huerta
[2023-01-08] MEDS: GLYCOPYRROLATE 0.2 MG/ML VIAL IV PRN ×2 (05:28→20:29)
[2023-01-08] MEDS: CHECK fentaNYL PATCH PLACEMENT SCH (07:59)
[2023-01-08] MEDS: ALUMINUM/MAGNESIUM/SIMETH (MAALOX MAX) 30 ML UDC PO SCH (08:01)
[2023-01-08] MEDS: PANTOprazole 40 MG TAB PO SCH (08:01)
[2023-01-08] MEDS: DOCUSATE CALCIUM 240 MG CAPSULE PO SCH (08:01)
[2023-01-08] MEDS: HYDROmorphone INJ 0.5 MG/0.5 ML SYR IV PRN ×5 (08:53→16:33)
[2023-01-08] MEDS ORDERED: fentaNYL 50 MCG/HR TDSY TD SCH (09:00)
[2023-01-08] MEDS ORDERED: HYDROmorphone BOLUS from BAG IV PRN ×2 (09:12→12:22)
--- NOTE | 2023-01-08 09:20 | Palliative Care Progress Note ---
Date of Service January 08, 2023 Assessment & Plan (1) Palliative care by specialist: (2) Cancer related pain: Plan: Dilaudid infusion ordered: Mr Person has used Dilaudid 13mg in past 24 hr which is approx 0.5mg/hr without adequate relief, therefore will start infusion at 0.6mg per hour and dose escalate per protocol. PRN bolus from infusion set at 0.5mg q15min. For now will leave his IV Prn Dilaudid 1 and 0.5mg doses unchanged. Patient re assessed through the day: At time of reassessment, 12pm, he was on 1.5mg per hour with persistent resp distress remains uncontrolled. RR > 26/min with use of accessory muscles, belly breathing and intermittent grunting/moaning with furrowed brow and grimace. Will increase basal rate to 2mg per hour. plan of care reviewed with nursing and alf guards at bedside. all questions answered to their apparent satisfaction. Present on Admission?: Yes (3) Dyspnea and respiratory abnormalities: (4) Acute on chronic respiratory failure with hypoxia: (5) Metastatic primary lung cancer: Present on Admission?: Yes (6) Non-small cell lung cancer: Present on Admission?: Yes Plan Patient re assessed at 1229. he is more comfortable though resp rate still 26/min with accessory muscle use and abd breathing noted, though he is not grimacing/no furrowed brow. Dilaudid infusion increased from 1.5mg per hour to 2mg per hour. Please note this pt has a prior substantial hx of drug abuse including cocaine, his opioid receptors are not naive. Ativan dose was increased earlier. Will change interval to q3h prn. Updated nursing and primary team, alf staff updated at bedside. patient is transitioning to active dying. anticipated survival is hours to days. Thank you for allowing us to participate in the ongoing care of this patient. Please don't hesitate to call or page with any additional concerns. Dr. Marie Soriano DNP Director, Palliative Care Admission and Anticipated Discharge Date Admission Date: January 05, 2023 Subjective Increasing air hunger and cancer pain without adequate relief; guard supervisor at bedside was with pt overnight and reports he appeared to be struggling even after prn meds were given but seems to have become more comfortable since I added infusion this morning. I was paged by nursing requesting medication adjustment to improve end of life symptom mgt, pain and dyspnea earlier this morning and dilaudid infusion ordered. Numerous med adjustments and reassessments made through the day MAR review indicates he used 13mg IV dilaudid in past 24hr pt is lethargic, will wince to tactile stimulus, no response to verbal Review of Systems Review of Systems: Unobtainable due to reduced consciousness Physical Exam Constitutional: + acute distress, + ill appearing, + altered mental status, + in distress and + diaphoretic ENMT: Mouth: + dry oral mucous membranes and + poor dentition Neck: trachea midline and + facial hair Thyroid: normal thyroid Respiratory: + respiratory distress, + labored breathing, + uses accessory muscles, + abnormal respiratory pattern, + tachypneic and + grunting Auscultation: + crackles (bilaterally) and + rhonchi (coarse bilaterally) Cardiovascular: Rate/Rhythm: + tachycardic Vessels: normal peripheral pulses Musculoskeletal: generalized weakness Skin: + turgor decreased, + dry skin and + pallor Neurologic: unresponsive, nearing end of life coma Results & Data Vital Signs (Past 12 Hours) none/pt on [facility] Laboratory Results none/pt on [facility] Diagnostic Findings none/pt on [facility] PG Care Time/CCT Total # of Minutes Spent Total Time Spent: 90 Total Time Spent with Patient: Total time spent is greater than 50% in coordination of care (as documented) at patient's floor/unit and/or counseling patient: TS 90 min throughout the day, multiple visits to re assess and med adjustments [place] [address] SUB INP/OBS CARE 3/50MIN Patient Type Established History Comprehensive Exam Comprehensive Medical Decision Making Moderate Complexity Diagnoses Palliative care by specialist Z51.5 Cancer related pain G89.3 Dyspnea and respiratory abnormalities R06.00; R06.89 Acute on chronic respiratory failure with hypoxia J96.21 Metastatic primary lung cancer C34.90 Non-small cell lung cancer C34.90
[2023-01-08] MEDS: HYDROmorphone/NSS 100 MG/100 ML BAG IV SCH (09:58)
[2023-01-08] MEDS ORDERED: HYDROmorphone INJ 1 MG/ML SYRINGE IV PRN (10:38)
--- NOTE | 2023-01-08 10:43 | Communication Note ---
Date of Service: January 08, 2023 1041 am Brief Pall Med Note improved air hunger control with infusional Dilaudid, though rate still high 20s, pt appears more comfortable/relaxed face and no longer grunting/restless. Will modify prn IV Dilaudid to 1 and 1.5mg options q15min for very severe breakthrough pain or air hunger. Patient has a know prior substance abuse hx of cocaine and may have [id number] opioid needs. He remains on a Dilaudid infusion at 0.6mg per hour. Thank you for allowing us to participate in the ongoing care of this patient. Please don't hesitate to call or page with any additional concerns. Dr. Marie Soriano DNP Director, Palliative Care
--- NOTE | 2023-01-08 12:22 | Hospitalist Progress Note ---
Date of Service January 08, 2023 Assessment & Plan (1) Acute on chronic respiratory failure with hypoxia: (2) Non-small cell lung cancer: (3) COPD (chronic obstructive pulmonary disease): (4) Pneumonia: Plan: Long history of smoking with COPD and recently diagnosed non-small cell cancer of the lung with metastasis Has been on 5 L of oxygen as an outpatient and was admitted with increasing shortness of breath with desaturation Recently diagnosed non-small cell cancer of the lung with metastasis CTA did not show-Interval worsening of metastatic disease including in the lungs with innumerable nodules and lymphangitic spread as well as in the visualized abdominal lymph nodes. Mesenteric lymph nodes are approximately stable. Hepatic metastases are not well seen but likely progressed. Was evaluated by drilling engineer/oncologist during last admission and the patient admits to see the oncologist about 3 days back Patient's clinical status is more due to progression of lung malignancy Elevated lactate likely due to hepatic mets. Pulm evaluation noted Palliative specialist on board Continue comfort measures per patient's wishes Currently on hydromorphone drip Coordinating care with Palliative specialist I expect patient may in hours to days (5) Acute hyponatremia: (6) Depression with anxiety: Plan I spent a total of 45 minutes coordinating, documenting and providing care for this patient excluding time spent in performance of separately billed services Admission and Anticipated Discharge Date Admission Date: January 05, 2023 Subjective Patient seen and examined He is currently unresponsive Physical Exam Constitutional: + acute distress (In respiratory distress) and + well hydrated Eyes: PERRL, conjunctivae normal, anicteric sclerae ENMT: external ear and nose normal, oropharynx normal Respiratory: + respiratory distress Tachypneic, Coarse breath sounds. On nasal cannula Cardiovascular: Rate/Rhythm: regular rate and regular rhythm S1 S2 Gastrointestinal (Abdomen): normal bowel sounds, soft, nontender, no hepatosplenomegaly Musculoskeletal: No pedal edema Neurologic: Unresponsive (3) COPD (chronic obstructive pulmonary disease) COPD type: COPD with acute exacerbation Qualified Code(s): J44.1 - Chronic obstructive pulmonary disease with (acute) exacerbation (4) Pneumonia Laterality: right Lung location: unspecified part of lung Pneumonia type: due to unspecified organism Qualified Code(s): J18.9 - Pneumonia, unspecified organism
[2023-01-09] MEDS: GLYCOPYRROLATE 0.2 MG/ML VIAL IV PRN ×2 (03:42→08:25)
[2023-01-09] MEDS: HYDROmorphone INJ 0.5 MG/0.5 ML SYR IV PRN ×8 (06:14→11:14)
[2023-01-09] MEDS: LORazepam 2 MG/1 ML VIAL IV PRN (08:07)
--- NOTE | 2023-01-09 12:06 | Hospitalist Progress Note ---
Date of Service January 09, 2023 Assessment & Plan (1) Acute on chronic respiratory failure with hypoxia: (2) Non-small cell lung cancer: (3) COPD (chronic obstructive pulmonary disease): (4) Pneumonia: Plan: Long history of smoking with COPD and recently diagnosed non-small cell cancer of the lung with metastasis Has been on 5 L of oxygen as an outpatient and was admitted with increasing shortness of breath with desaturation Recently diagnosed non-small cell cancer of the lung with metastasis CTA did not show-Interval worsening of metastatic disease including in the lungs with innumerable nodules and lymphangitic spread as well as in the visualized abdominal lymph nodes. Mesenteric lymph nodes are approximately stable. Hepatic metastases are not well seen but likely progressed. Was evaluated by supervisor loading/oncologist during last admission and the patient admits to see the oncologist about 3 days back Patient's clinical status is more due to progression of lung malignancy Elevated lactate likely due to hepatic mets. Pulm evaluation noted Palliative specialist on board Continue comfort measures per patient's wishes Currently on hydromorphone drip Coordinating care with Palliative specialist (5) Acute hyponatremia: (6) Depression with anxiety: Plan I spent a total of 35 minutes coordinating, documenting and providing care for this patient excluding time spent in performance of separately billed services Admission and Anticipated Discharge Date Admission Date: January 05, 2023 Subjective Patient seen and examined Patient is on OUTSOLE CASER, currently on diluadid drip He is unresponsive Physical Exam Constitutional: + acute distress (In respiratory distress) and + well hydrated Eyes: PERRL, conjunctivae normal, anicteric sclerae ENMT: external ear and nose normal, oropharynx normal Respiratory: + respiratory distress and + tachypneic +generalized coarse breath sounds Cardiovascular: Rate/Rhythm: regular rate and regular rhythm S1 S2 Gastrointestinal (Abdomen): normal bowel sounds, soft, nontender, no hepatosplenomegaly Neurologic: Unresponsive (3) COPD (chronic obstructive pulmonary disease) COPD type: COPD with acute exacerbation Qualified Code(s): J44.1 - Chronic obstructive pulmonary disease with (acute) exacerbation (4) Pneumonia Laterality: right Lung location: unspecified part of lung Pneumonia type: due to unspecified organism Qualified Code(s): J18.9 - Pneumonia, unspecified organism
[2023-01-09] MEDS: HYDROmorphone/NSS 100 MG/100 ML BAG IV SCH (16:19)
--- NOTE | 2023-01-09 18:26 | Communication Note ---
Date of Service: January 09, 2023 Patient seen at bedside. Heart and lung sounds are absent. No spontaneous cardiac or respiratory activity. Patient is not responsive/nonreactive to verb al or painful stimuli. No corneal or pupillary reflex present. Pupil fixed and dilated. He was pronounced at 6:21 pm on 01/09/2023.
--- NOTE | 2023-01-09 18:54 | Discharge Summary ---
Date of Service January 09, 2023 Admission HPI Per Admitting Provider 72-year-old male with significant past medical history of hypertension, hyperlipidemia, depression and anxiety, asthma, history of your long smoking and alcohol abuse with recently diagnosed non-small cell cancer of the lung apparently has been complaining of increasing shortness of breath for the last 2 weeks. He was in the hospital recently from 12/03/2022 to 12/09/2022 and at that time he was diagnosed to have small cell cancer of the lung and he mentioned that he saw oncologist as an outpatient about 3 or 4 days back. According to the patient no medications and/or test were performed. He has been on 5 L of oxygen on discharge and now requiring 7 L to maintain saturation. He has cough with [place] phlegm and noted to have blood-tinged in that phlegm. He has some pain right lower chest wall/abdominal wall and feels nauseous without any vomiting. He also complains to have feeling of warmth without any sweating and remained afebrile in the emergency room. CTA of the chest showed worsening metastatic disease without any evidence of pulmonary embolism. Chest x-ray did not show diffuse interstitial thickening and increased when compared with 12/06/2022. Pneumonia cannot be excluded He was started with intravenous antibiotic, intravenous Solu-Medrol and bronchodilators and was admitted to telemetry unit for continuation of care Admission Exam Per Admitting Provider Lying in bed with moderate shortness of breath Constitutional: + ill appearing and average body habitus Eyes: PERRL, conjunctivae normal, anicteric sclerae ENMT: external ear and nose normal, oropharynx normal Neck: trachea midline, no thyromegaly Respiratory: + respiratory distress (Moderate shortness of breath at rest), + labored breathing, + retractions, + cough and + tachypneic Auscultation: + diminished lung sounds and + crackles (More on the right than the left side) Cardiovascular: Rate/Rhythm: regular rate and regular rhythm; not tachycardic Heart Sounds: normal S1 and normal S2; no murmur Extremities: no edema Gastrointestinal (Abdomen): Inspection/Auscultation: normal bowel sounds; abdomen not distended Percussion/Palpation: + abdomen tender (Mildly tender right side) and abdomen soft Musculoskeletal: No acute arthritis involving any joint Neurologic: normal touch/pain/proprioception and moves all extremities; no focal motor deficits Lymphatic: no cervical or axillary lymphadenopathy Principal Diagnosis Acute on chronic respiratory failure with hypoxia Metastatic non small cell lung cancer Discharge Exam Patient Discharge Data Allergies Allergy/AdvReac Type Severity Reaction Status Date / Time No Known Allergies Allergy Verified 01/05/23 17:51 Consultations 01/05/23 19:43 ED Decision to Admit Stat 01/05/23 20:33 Consult Pulmonology Routine 01/06/23 08:08 Consult Palliative Care Routine 01/06/23 08:12 Consult Oncology Routine Ordered Studies 01/05/23 16:28 CT angio chest PE protocol Stat Hospital Course (1) Acute on chronic respiratory failure with hypoxia: (2) Non-small cell lung cancer: (3) COPD (chronic obstructive pulmonary disease): (4) Pneumonia: (5) Acute hyponatremia: (6) Depression with anxiety: Plan Long history of smoking with COPD and recently diagnosed non-small cell cancer of the lung with metastasis Had been on 5 L of oxygen as an outpatient and was admitted with increasing shortness of breath with desaturation Recently diagnosed non-small cell cancer of the lung with metastasis a month ago CTA Chest showed-Interval worsening of metastatic disease including in the lungs with innumerable nodules and lymphangitic spread as well as in the visualized abdominal lymph nodes. Mesenteric lymph nodes are approximately stable. Hepatic metastases are not well seen but likely progressed. Was evaluated by circus supervisor/oncologist during last admission and the patient admits to see the oncologist about 3 days back Patient respiratory failure worsened and he was requiring high flow nasal cannula. He was evaluated by Hospice Care Transitions Coordinator and Oncologist. Patient ultimately elected for comfort measures only Comfort measures were instituted. Patient today and was pronounced by Dr Shoemaker at 6:21PM. I called over to correctional facility and notified RN at [facility] Cause of : Acute on chronic respiratory failure with hypoxia Metastatic non small cell lung cancer certificate completed online Total Time Total Time Spent Total Time Spent (In Minutes): 35 Total Time Includes: Other Discharge Plan Discharge Items Patient Disposition: Other Date/Time: 01/09/23 18:21
--- NOTE | 2023-01-12 12:29 | Coding Query ---
To promote full compliance with coding requirements relating to patient care, provider participation is requested in all cases of lead generator uncertainty. Please assist us with the question(s) below: Coding Question(s): The diagnosis(es) below was documented on 01/06 on Communication Note and Palliative Consultation, then subsequently fell off all further documentation. Please indicate if it is still a possible diagnosis or ruled out. Physician's Response(s): SEVERE SEPSIS (documented on 01/06 Communication Note and on 01/06 Palliative Care Consultation only) ( ) Diagnosed and POA ( ) Diagnosed and not POA ( ) Ruled out ( x ) Other (please specify) Patient had metastatic lung cancer MTDD
== END 2023-01-09 20:25 | disposition expired | DRG 189 ==
LOC: ED 15:15 → 1E 20:06 → 2S 01-06 23:50 → 3W 01-07 17:34